=== PATIENT | female | born 1970 | race Caucasian/White ===

== ENCOUNTER 2024-01-06 05:39 | Day surgery (SDC) | payer SELFPAY ==
--- OUTSIDE RECORDS SUMMARY | 2024-01-06 05:49 | XMS RPT_ITS | CCD ---
Author Name Unknown Address [address] [place] [address] Organization [facility] Care Team Providers Care Shrimp Trawler Captain Name Role Phone Alberto Pedersen Unavailable [phone] Adam, Linda S. P. Unavailable Unavailable Unavailable Unavailable Alberto Pedersen Unavailable Unavailable Alberto Pedersen Unavailable Unavailable Alberto Pedersen Primary Care Provider [phone] Adam, Linda S. P. Unavailable BRIGIDA CHAN Attending Unavailable Gerry Meza Referring Unavailable SpringAna M Primary Care Provider [phone] SpringAna M Primary Care Provider [phone] Adam, Linda S. P. Unavailable Spring, Ana M Ramey Primary Care Provider [phone] Alberto Pedersen Unavailable Spring, Ana M Ramey Primary Care Provider [phone] Cheyenne Ahuja Primary Care Provider [phone] Adam BRONSON, Linda S. P. Unavailable Spring Ana M LIN Primary Care Provider Spring Ana M LIN Primary Care Provider Spring Ana M LIN Unavailable Spring Ana M LIN Unavailable Spring Ana M LIN Unavailable JACKSON DAVIS Attending Unavaila ble JACKSON DAVIS Referring Unavaila ble HENRICO, ANA M M. Primary Care Unavailable Spring FLANGER, Ana M Ramey Primary Care Provider Spring FLANGER, Ana M M. Unavailable SPRING, ANA M M. Primary Care Unavailable PARAG COMBS Attending Unava ilable HENRICO, ANA M MNatalie Primary Care Unavailable PARAG COMSB Attending Unava ilable HENRICO, ANA M MNatalie Primary Care Unavailable RAYMOND BARCLAY Attending Unavailable Kvng Gonzalez MD Unavailable [phone] Unavailable Primary Care Provider Unavailabl e Spring FLANGER, [facility] Primary Care Provider Unav ailable System, Provider Not In Primary Care Provider Un available Spring FLANGER, [facility] Primary Care Provider Unav ailable GHAZOUL, ANGLE Attending Unavailable GHAZOUL, ANGLE Referring Unavailable GHAZOUL, ANGLE Admitting Unavailable SELF, SELF Referring Unavailable HENRICO, [facility] Primary Care Unavailable GHAZOUL, ANGLE Attending Unavailable SPRING, [facility] Primary Care Unavailable GHAZOUL, ANGLE Attending Unavailable GHAZOUL, ANGLE Referring Unavailable SELF, SELF Referring Unavailable GHAZOUL, ANGLE Attending Unavailable SELF, SELF Referring Unavailable GHAZOUL, ANGLE Attending Unavailable GHAZOUL, ANGLE Attending Unavailable HENRICO, [facility] Primary Care Unavailable SELF, SELF Referring Unavailable HENRICO, [facility] Primary Care Unavailable GHAZOUL, ANGLE Attending Unavailable SELF, SELF Referring Unavailable SELF, SELF Referring Unavailable HENRICO, [facility] Primary Care Unavailable GHAZOUL, ANGLE Attending Unavailable SELF, SELF Referring Unavailable HENR[place], [facility] Primary Care Unavailable GHAZOUL, ANGLE Attending Unavailable No, Physician Primary Care Provider Unavailabl e Bhavesh Faust MD Primary Care Pro vider Bhavesh Faust Unavailable Govind, Dr. Bhavesh Vazquez Referring Unavailable Thomae, Tee R Attending Unavailable Govind, Dr. Bhavesh Vazquez Attending Unavailable Thomae, Tee R Attending Unavailable Thomae, Tee R Referring Unavailable Govind, Dr. Bhavesh Vazquez Attending Unavailable KVNG GONZALEZ Referring Unavailable GOVIND, BHAVESH BRIANNA MOUNIR Primary Care Shona vailable Govind Bhavesh BRONSON Primary Care Provider GOVIND, BHAVESH BRIANNA MOUNIR Primary Care Shona vailable KVNG GONZALEZ Attending Unavailable KVNG GONZALEZ Attending Unavailable GOVIND, BHAVESH BRIANNA MOUNIR Primary Care Shona vailable KVNG GONZALEZ Referring Unavailable GOVIND, BHAVESH BRIANNA MOUNIR Primary Care Shona vailable GOVIND, BHAVESH BRIANNA MOUNIR Primary Care Shona vailable GOVIND, BHAVESH BRIANNA MOUNIR Referring Shona vailable SHERI ANDRE Attending Unavailable GOVIND, BHAVESH BRIANNA MOUNIR Primary Care Shona vailable GOVIND, BHAVESH BRIANNA MOUNIR Attending Shona vailable GOVIND, BHAVESH BRIANNA MOUNIR Primary Care Shona vailable SALSGIVER, SLOANE Attending Unavailable GOVIND, BHAVESH BRIANNA MOUNIR Primary Care Shona vailable GOVIND, BHAVESH BRIANNA MOUNIR Primary Care Shona vailable SALSGIVER, SLOANE Attending Unavailable KVNG GONZALEZ Attending Unavailable GOVIND, BHAVESH BRIANNA MOUNIR Primary Care Shona vailable KVNG GONZALEZ Attending Unavailable GOVIND, BHAVESH BRIANNA MOUNIR Primary Care Shona vailable KVNG GONZALEZ Attending Unavailable GOVIND, BAHVESH BRIANNA MOUNIR Primary Care Shona vailable KVNG GONZALEZ Attending Unavailable GOVIND, BHAVESH BRIANNA MOUNIR Primary Care Shona vailable RAIMUNDO FERGUSON Attending Unavail able GOVIND, BHAVESH BRIANNA MOUNIR Primary Care Shona vailable GOVIND, BHAVESH BRIANNA MOUNIR Attending Shona vailable GOVIND, BHAVESH BRIANNA MOUNIR Primary Care Shona vailable KVNG GONZALEZ Attending Unavailable GOVIND, BHAVESH BRIANNA MOUNIR Primary Care Shona vailable GOVIND, BHVAESH BRIANNA MOUNIR Attending Shona vailable GOVIND, BHAVESH BRIANNA MOUNIR Primary Care Shona vailable GOVIND, BHAVESH BRIANNA MOUNIR Primary Care Shona vailable GOVIND, BHAVESH BRIANNA MOUNIR Attending Shona vailable AMERICA, FINA M Attending BHAVESH Maguire Primary Care Shona vailable Allergies Allergy Classification Reported Allergen(s) Allergy Type Date of Onset Reaction(s) Facility Cat's Claw preparation (1 source) Cat's Claw preparation Drug Allergy 6 Itching [facility] Cats (1 source) Cat Animal Allergy (Dander) 6 Itching Work Phone: Mold Extract (2 sources) Mold Extract Drug Allergy 6 Rash Work Phone: Opioid Agonists (1 source) Codeine Drug Allergy 9 Unknown [facility] Pollen (2 sources) Grass pollen Substance Allergy 6 Shortness of Breath Work Phone: (20 sources) cats claw preparation; Translations: [CAT'S CLAW (UNCARIA TOMENTOSA)] Propensity to adverse reactions to drug 6 Itching [facility] Work Phone: (20 sources) Grass pollen; Translations: [GRASS POLLEN] Propensity to adverse reactions to drug 6 [facility] Work Phone: (20 sources) mold extract; Translations: [MOLD] Propensity to adverse reactions to drug 6 Rash [facility] Work Phone: (20 sources) Codeine; Translations: [CODEINE PHOSPHATE] Drug Allergy 9 Unknown [facility] (8 sources) Codeine Drug Allergy 9 [facility] (8 sources) Cat Dander Propensity to adverse reactions to drug 6 Itching [facility] (6 sources) *Seasonal Propensity to adverse reactions to substance 6 Dyspnea [facility] Medications Current Medications Medication Drug Class(es) Dates Sig (Normalized) Sig (Original) acetaminophen 325 mg / oxyCODONE hydrochloride 5 mg oral tablet (6 sources) Opioid Agonist Start: 07-27-2022 End: 07-30-2022 take 1 tablet by mouth every six hours as needed for pain oxyCODONE-acetaminop hen 5-325 MG per tablet Indications: S/P abdominoplasty Take 1 tablet by mouth every 6 hours as needed for Moderate Pain (Use ONLY as needed for pain) for up to 3 days. 10 tablet 0 07/27/2022 Active alogliptin 25 mg oral tablet (10 sources) Start: 06-09-2023 End: 07-09-2023 take 0.5 tablet by mouth once daily before lunch alogliptin 25 mg Tab Take 0.5 (one-half) tablet (12.5 mg total) by mouth daily before lunch . 15 tablet 1 06/09/2023 07/09/2023 Active Completed/Discontinued Medications Medication Drug Class(es) Dates Sig (Normalized) Sig (Original) acetaminophen 325 mg / HYDROcodone bitartrate 5 mg oral tablet (1 source) Opioid Agonist Start: 12-19-2020 End: 12-19-2020 take 1-2 tablets by mouth every four hours as needed 1-2 tablet, Oral, Every 4 hours PRN, moderate to severe pain, Starting 12/19/20 at 1219 For patient reported pain 4/10 or less, give 1 tablet; 5 and above/10, give 2 tablets [id number] actuat albuterol 0.09 mg/actuat metered dose inhaler (2 sources) beta2-Adrenergic Agonist Start: 10-01-2021 End: 04-27-2022 albuterol 108 (90 Base) MCG/ACT Aero Soln inhaler 1-2 inhalations every 4-6 hours as needed for wheezing. Dispense spacer as needed. 0 10/01/2021 04/27/2022 Discontinued Problems Active Problems Problem Classification Problem Date Documented Da te Episodic/Chronic Anxiety disorders (20 sources) Anxiety; Translations: [Anxiety disorder, unspecified] Onset: 05-21-2019 05-21-2019 Chronic Asthma (20 sources) Asthma; Translations: [Unspecified asthma, uncomplicated] Onset: 07-13-2016 07-13-2016 Chronic Coma; stupor; and brain damage (2 sources) Daytime somnolence; Translations: [Somnolence] Episodic Complications of surgical procedures or medical care (2 sources) Post-surgical malabsorption; Translations: [Postsurgical malabsorption, not elsewhere classified] Chronic Crushing injury or internal injury (1 source) Contusion of lung; Translations: [Contusion of right lung, initial encounter] Episodic Deficiency and other anemia (5 sources) Iron deficiency anemia; Translations: [Iron deficiency anemia, unspecified] Episodic Digestive congenital anomalies (2 sources) Other specified congenital malformations of intestine; 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] Onset: 03-11-2023 03-18-2023 Chronic Disorders of lipid metabolism (18 sources) Hyperlipidemia; Translations: [Dyslipidemia] Onset: 06-21-2023 Chronic Essential hypertension (20 sources) Hypertensive disorder; Translations: [Essential hypertension] Onset: 11-21-2017 11-21-2017 Chronic Joint disorders and dislocations; trauma-related (1 source) Chondromalacia of right patella; Translations: [Chondromalacia, patella, right] Menopausal disorders (20 sources) Menopausal syndrome; Translations: [Menopausal and female climacteric states] Onset: 11-23-2019 12-26-2020 Chronic Miscellaneous mental health disorders (19 sources) Eating disorder; Translations: [Eating disorder, unspecified] Onset: 07-19-2023 Chronic Mood disorders (20 sources) Depressive disorder; Translations: [Depressive disorder] Onset: 11-19-2019 04-27-2022 Chronic Nutritional deficiencies (20 sources) Vitamin D deficiency; Translations: [Iron deficiency] Onset: 06-14-2016 06-14-2016 Chronic Nutritional deficiencies (20 sources) Iron deficiency; Translations: [Iron deficiency] Onset: 06-14-2016 06-14-2016 Episodic Osteoarthritis (20 sources) Unilateral primary osteoarthritis of first carpometacarpal joint, left hand; Translations: [Unilateral primary osteoarthritis of first carpometacarpal joint, right hand] Onset: 05-19-2018 05-19-2018 Chronic Osteoarthritis (17 sources) Osteoarthritis of first carpometacarpal joint of right hand; Translations: [Osteoarthritis of carpometacarpal (CMC) joint of right thumb] Onset: 05-19-2018 05-19-2018 Other connective tissue disease (17 sources) Pain in left thumb; Translations: [Pain of left thumb] Onset: 07-22-2016 07-22-2016 Other connective tissue disease (2 sources) Bursitis of right hip; Translations: [Bursitis of hip, right] Onset: 03-17-2017 03-17-2017 Other gastrointestinal disorders (20 sources) Malabsorption - iron; Translations: [Intestinal malabsorption, unspecified] Onset: 02-03-2022 Chronic Other gastrointestinal disorders (3 sources) Intestinal malabsorption; Translations: [Intestinal malabsorption, unspecified] Chronic Other gastrointestinal disorders (4 sources) Intestinal malabsorption, unspecified; Translations: [Intestinal malabsorption, unspecified] Onset: 02-03-2022 Chronic Other gastrointestinal disorders (5 sources) Constipation; Translations: [Constipation, unspecified] Episodic Other gastrointestinal disorders (4 sources) Bariatric surgery status; Translations: [Bariatric surgery status] Onset: 06-14-2016 Episodic Other lower respiratory disease (2 sources) Snoring; Translations: [Snoring] Episodic Other non-traumatic joint disorders (20 sources) Arthritis; Translations: [Unspecified osteoarthritis, unspecified site] Onset: 07-13-2016 07-13-2016 Chronic Other non-traumatic joint disorders (1 source) Hip pain; Translations: [Arthralgia of hip, unspecified laterality] Episodic Other nutritional; endocrine; and metabolic disorders (6 sources) Body mass index 25-29 - overweight; Translations: [Iron deficiency] Onset: 06-14-2016 11-21-2017 Chronic Other nutritional; endocrine; and metabolic disorders (7 sources) Obesity, unspecified; Translations: [Obese class I] Onset: 11-21-2017 12-12-2018 Chronic Other nutritional; endocrine; and metabolic disorders (10 sources) Morbid obesity; Translations: [Morbid (severe) obesity due to excess calories] Onset: 02-01-2007 Chronic Other nutritional; endocrine; and metabolic disorders (12 sources) Insulin resistance; Translations: [Metabolic syndrome] Chronic Other nutritional; endocrine; and metabolic disorders (12 sources) Localized adiposity; Translations: [Localized adiposity] Onset: 04-27-2022 Chronic Other nutritional; endocrine; and metabolic disorders (1 source) Localized adiposity; Translations: [Localized adiposity] Onset: 04-27-2022 Chronic Other nutritional; endocrine; and metabolic disorders (4 sources) Metabolic syndrome; Translations: [Metabolic syndrome and other insulin resistance] Onset: 06-09-2023 Chronic Other nutritional; endocrine; and metabolic disorders (19 sources) Body mass index 25-29 - overweight; Translations: [Body mass index (BMI) 29.0-29.9, adult] Episodic Other nutritional; endocrine; and metabolic disorders (1 source) Weight gain; Translations: [Abnormal weight gain] Episodic Other nutritional; endocrine; and metabolic disorders (2 sources) Overweight; Translations: [Overweight] Onset: 12-13-2023 Episodic Other nutritional; endocrine; and metabolic disorders (2 sources) Body mass index (BMI) 27.0-27.9, adult; Translations: [Body mass index (BMI) 27.0-27.9, adult] Onset: 12-13-2023 Episodic Other nutritional; endocrine; and metabolic disorders (17 sources) Obese class I; Translations: [Obesity, Class I, BMI 30-34.9] Onset: 11-21-2017 12-12-2018 Other skin disorders (2 sources) Atrophic disorder of skin, unspecified; Translations: [Atrophic disorder of skin, unspecified] Onset: 08-13-2022 Episodic Residual codes; unclassified (1 source) Sleep apnea; Translations: [Sleep apnea, unspecified] Onset: 02-01-2007 02-01-2007 Chronic Residual codes; unclassified (1 source) Obstructive sleep apnea syndrome; Translations: [Obstructive sleep apnea (adult) (pediatric)] Chronic Residual codes; unclassified (1 source) Sleep disorder; Translations: [Sleep disorder, unspecified] Episodic Residual codes; unclassified (4 sources) Body mass index 20-24 - normal; Translations: [Body mass index (BMI) 24.0-24.9, adult] Episodic Residual codes; unclassified (2 sources) Other specified postprocedural states; Translations: [Other specified postprocedural states] Onset: 09-14-2022 Episodic Sprains and strains (1 source) Sprain of knee; Translations: [Sprain of other ligament of right knee, initial encounter] Episodic Thyroid disorders (20 sources) Acquired hypothyroidism; 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] Onset: 02-01-2007 06-14-2016 Chronic Thyroid disorders (2 sources) Disorder of thyroid, unspecified; Translations: [Disorder of thyroid gland] Onset: 03-11-2023 03-18-2023 Episodic Unclassified (18 sources) Arthritis of carpometacarpal (CMC) joint of left thumb; Translations: [Arthritis of carpometacarpal (CMC) joint of left thumb] Onset: 05-19-2018 05-19-2018 Unclassified (19 sources) Patient encounter status; Translations: [Preoperative evaluation to rule out surgical contraindication] Onset: 05-21-2019 05-21-2019 Unclassified (2 sources) Post Op Visit; Translations: [Post Op Visit] Onset: 09-01-2022 Unclassified (2 sources) New Patient; Translations: [New Patient] Onset: 04-27-2022 Unclassified (2 sources) Insulin resistance, unspecified; Translations: [Insulin resistance, unspecified] Onset: 12-13-2023 Unclassified (2 sources) 12/01/23 PRE-OP CLEARANCE FORM Onset: 12-01-2023 Past or Other Problems Problem Classification Problem Date Documented Da te Episodic/Chronic Abdominal pain (9 sources) Abdominal pain; Translations: [Unspecified abdominal pain] Onset: 03-19-2008 03-19-2008 Episodic Deficiency and other anemia (20 sources) Anemia; Translations: [Anemia, unspecified] Onset: 12-16-2016 12-16-2016 Episodic Immunizations and screening for infectious disease (2 sources) Encounter for immunization; Translations: [Encounter for immunization] Onset: 04-15-2023 Episodic Nonmalignant breast conditions (7 sources) Breast lump; Translations: [Unspecified lump in unspecified breast] Onset: 01-24-2023 02-03-2023 Episodic Open wounds of extremities (20 sources) Open wound of finger with tendon injury; Translations: [Laceration of tendon of finger] Onset: 12-17-2020 12-17-2020 Episodic Other connective tissue disease (20 sources) Pain in left finger(s); Translations: [Other bursitis of hip, right hip] Onset: 07-22-2016 07-22-2016 Episodic Other connective tissue disease (18 sources) Other bursitis of hip, right hip; Translations: [Bursitis of hip, right] Onset: 03-17-2017 03-17-2017 Episodic Other connective tissue disease (9 sources) Pain in left lower limb; Translations: [Pain in left leg] Onset: 04-30-2016 04-30-2016 Episodic Other connective tissue disease (20 sources) Bursitis of right hip; Translations: [Other bursitis of hip, right hip] Onset: 03-17-2017 03-17-2017 Episodic Other connective tissue disease (2 sources) Lateral epicondylitis, right elbow; Translations: [Lateral epicondylitis, right elbow] Onset: 05-13-2023 Episodic Other endocrine disorders (8 sources) Disorder of endocrine system; Translations: [Endocrine disorder, unspecified] Onset: 11-23-2019 04-27-2022 Episodic Other gastrointestinal disorders (2 sources) Constipation, unspecified; Translations: [Constipation, unspecified] Onset: 07-19-2023 Episodic Other hematologic conditions (20 sources) H/O: anemia; Translations: [Personal history of diseases of the blood and blood-forming organs and certain disorders involving the immune mechanism] Onset: 11-23-2019 12-26-2020 Episodic Other lower respiratory disease (20 sources) Cough; Translations: [Cough] Onset: 07-19-2019 07-19-2019 Episodic Other lower respiratory disease (9 sources) Disorder of lung; Translations: [Other disorders of lung] Onset: 02-01-2007 02-01-2007 Episodic Other nutritional; endocrine; and metabolic disorders (20 sources) Overweight in adulthood with body mass index of 25 or more but less than 30; Translations: [Overweight] Onset: 11-21-2017 Episodic Other nutritional; endocrine; and metabolic disorders (2 sources) Body mass index (BMI) 26.0-26.9, adult; Translations: [Body mass index (BMI) 26.0-26.9, adult] Onset: 06-09-2023 Episodic Other screening for suspected conditions (not mental disorders or infectious disease) (20 sources) Patient encounter status; Translations: [Encounter for other screening for malignant neoplasm of breast] Onset: 01-24-2023 01-17-2023 Episodic Other skin disorders (11 sources) Atrophic condition of skin; Translations: [Atrophic disorder of skin, unspecified] Onset: 04-27-2022 Episodic Other upper respiratory infections (20 sources) Frontal sinusitis; Translations: [Chronic frontal sinusitis] Onset: 07-19-2019 Resolved: 01-17-2023 05-20-2020 Chronic Other upper respiratory infections (16 sources) Acute frontal sinusitis; Translations: [Frontal sinusitis] Onset: 07-19-2019 05-20-2020 Episodic Residual codes; unclassified (18 sources) Insomnia; Translations: [Insomnia, unspecified] Onset: 01-18-2023 01-17-2023 Episodic Residual codes; unclassified (2 sources) Insomnia, unspecified; Translations: [Insomnia, unspecified] Onset: 01-19-2023 Episodic Residual codes; unclassified (2 sources) Body mass index (BMI) 24.0-24.9, adult; Translations: [Body mass index (BMI) 24.0-24.9, adult] Onset: 03-10-2023 Episodic Spondylosis; intervertebral disc disorders; other back problems (20 sources) Low back pain; Translations: [Sciatica] Onset: 07-13-2016 07-13-2016 Episodic Unclassified (20 sources) History of bariatric surgical procedure; Translations: [H/O: surgery] Onset: 06-14-2016 06-14-2016 Episodic Unclassified (20 sources) Preprocedural examination done; Translations: [Pre-op exam] Onset: 08-22-2018 Resolved: 03-15-2019 08-22-2018 Unclassified (2 sources) Insulin resistance, unspecified; Translations: [Insulin resistance, unspecified] Onset: 12-13-2023 Urinary tract infections (20 sources) Cystitis; Translations: [Urinary tract infectious disease] Onset: 12-12-2018 Resolved: 03-15-2019 12-12-2018 Episodic Viral infection (20 sources) Disease caused by 2019-nCoV; Translations: [COVID-19] Onset: 06-23-2021 Episodic Results Test Name Value Interpretation Reference Range Facil ity Vital Signs Date Time Vital Sign Value Performing Clinician Faci lity 12-16-2023 07:47-0500 Body height 180.3 cm Bhavesh Faust MD Work Phone: [facility] 12-16-2023 07:47-0500 Body mass index (BMI) [Ratio] 27.2 kg/m2 Bhavesh Faust MD Work Phone: [facility] 12-16-2023 07:47-0500 Body temperature 98.01 [degF] Bhavesh Faust MD Work Phone: [facility] 12-16-2023 07:47-0500 Body weight 88.45 kg Bhavesh Faust MD Work Phone: [facility] 12-16-2023 07:47-0500 Diastolic blood pressure 85 mm[Hg] Bhavesh Faust MD Work Phone: [facility] 12-16-2023 07:47-0500 Heart rate 87 /min Bhavesh Faust MD Work Phone: [facility] 12-16-2023 07:47-0500 Respiratory rate 16 /min Bhavesh Faust MD Work Phone: [facility] 12-16-2023 07:47-0500 SaO2% (BldA) [Mass fraction] 96 % Bhavesh Faust MD Work Phone: [facility] 12-16-2023 07:47-0500 Systolic blood pressure 117 mm[Hg] Bhavesh Faust MD Work Phone: [facility] 12-13-2023 10:03-0500 Body height 180.3 cm Kvng Gonzalez MD Work Phone: [facility] 12-13-2023 10:03-0500 Body mass index (BMI) [Ratio] 27.36 kg/m2 Kvng Gonzalez MD Work Phone: [facility] 12-13-2023 10:03-0500 Body weight 89 kg Kvng Gonzalez MD Work Phone: [facility] 12-13-2023 10:03-0500 Diastolic blood pressure 85 mm[Hg] Kvng Gonzalez MD Work Phone: [facility] 12-13-2023 10:03-0500 Heart rate 64 /min Kvng Gonzalez MD Work Phone: [facility] 12-13-2023 10:03-0500 SaO2% (BldA) [Mass fraction] 98 % Kvng Gonzalez MD Work Phone: [facility] 12-13-2023 10:03-0500 Systolic blood pressure 129 mm[Hg] Kvng Gonzalez MD Work Phone: [facility] 09-27-2023 09:07-0500 Body height 180.3 cm Kvng Gonzalez MD Work Phone: [facility] 09-27-2023 09:07-0500 Body mass index (BMI) [Ratio] 27.62 kg/m2 Kvng Gonzalez MD Work Phone: [facility] 09-27-2023 09:07-0500 Body weight 89.81 kg Kvng Gonzalez MD Work Phone: [facility] Encounters Encounter Date Encounter Type Care Provider Facility Start: 12-18-2023 Orders Only Kvng Marx MD Work Phone: [facility] Procedures Date Procedure Procedure Detail Performing Clinician Start: 12-16-2023 Ecg routine ecg w/least 12 lds w/i&r Bhavesh Faust MD Work Phone: Start: 04-15-2023 Microscopic observation [Identifier] in Cervix by Cyto stain Kvng Gonzalez MD Work Phone: Start: 03-11-2023 Colonoscopy stoma dx including collj spec spx Bhavesh Faust MD Work Phone: Start: 03-11-2023 End: 03-11-2023 Colonoscopy Bhavesh Faust Work Phone: Start: 01-24-2023 Mammography Bhavesh Faust MD Work Phone: Start: 04-07-2022 Assay of ferritin Kvng Gonzalez MD Work Phone: Start: 03-01-2022 Assay of free thyroxine Kvng baker MD Work Phone: Start: 11-13-2021 Referral to dietetics service Kvng Gonzalez MD Work Phone: Start: 12-26-2020 Adult depression screening assessment Ana M Spring Start: 12-19-2020 XR OR FLUOROSCOPY TIME Ananya lemus Work Phone: Start: 12-19-2020 Choriogonadotropin ( test) [Presence] in Urine Willi Sosa Work Phone: Start: 12-12-2018 Urinalysis macro (dipstick) panel - Urine Alberto Pedersen Work Phone: Start: 11-30-2018 Mammography Ana M Spring Start: 12-24-2017 End: 12-24-2017 Drain/inject, joint/bursa Alberto leo Work Phone: Start: 09-07-2017 Microscopic observation [Identifier] in Cervix by Cyto stain Alberto Pedersen Start: 06-23-2017 End: 06-23-2017 XYZ JOINT APIRATION/IJNECTION Alberto [place] Work Phone: H/O: surgery S/P abdominoplasty Angle garay MD Work Phone: H/O: surgery S/P abdominoplasty Angle garay MD Work Phone: H/O: surgery S/P abdomvashti garay MD Work Phone: H/O: surgery S/P abdominoplasty Angle garay MD Work Phone: H/O: surgery S/P abdomvashti garay MD Work Phone: H/O: surgery S/P abdominoplasty Angle garay MD Work Phone: Plan of Treatment Date Care Activity Detail Author Start: 03-11-2033 Screening for malign ant neoplasm of colon [facility] Start: 08-19-2031 Tetanus vaccination [facility] Start: 04-15-2028 Screening for malign ant neoplasm of cervix Pap Smear [facility] Start: 11-21-2027 Tetanus vaccination [facility] Start: 12-17-2024 End: 12-17-2024 Patient encounter procedure 12/17/2024 8:20 AM EST Office Visit [facility] [address] [place] [phone] Bhavesh Faust MD [address] [address] [facility] Start: 04-20-2024 End: 04-20-2024 Patient encounter procedure 04/20/2024 8:40 AM EDT Office Visit [facility] [address] [place] [phone] Bhavesh Faust MD [address] [address] [facility] Start: 04-15-2024 History and physical examination, annual for health maintenance Wellness Visit [facility] Start: 03-12-2024 End: 03-12-2024 Patient encounter procedure 03/12/2024 10:30 AM EDT Office Visit [facility] [address] [place] [id number] vKng Gonzalez MD [address] [facility] [address] [place] [address] [facility] Start: 02-10-2024 End: 02-13-2025 MG Breast - bilateral Screening Mammography Screening Daniel Bilateral Imaging Routine Encounter for screening for malignant neoplasm of breast, unspecified screening modality Expected: 02/10/2024, Expires: 02/13/2025 [facility] Work Phone: Immunizations Immunization Date Immunization Notes Care Provider Fa [facility] 12-16-2023 zoster vaccine recombinant Bhavesh Faust MD Work Phone: [facility] 12-16-2023 varicella-zoster gE, diluent + powder, (SHINGRIX KIT) 50 mcg/0.5 mL injection Bhavesh Faust MD Work Phone: [facility] 04-15-2023 Pneumococcal Conjuga te 20-Valent (Prevnar 20) Kvng Gonzalez MD Work Phone: [facility] 04-15-2023 zoster vaccine recombinant Kvng Gonzalez MD Work Phone: [facility] 08-19-2021 tetanus toxoid, redu perez diphtheria toxoid, and acellular pertussis vaccine, adsorbed Fina Becerra RN [facility] 08-12-2021 influenza, injectabl e, quadrivalent, preservative free Fina Becerra RN [facility] 08-12-2021 influenza virus vaccine, unspecified formulation Angle Pina MD Work Phone: [facility] 01-29-2021 COVID-19 vaccine, Christi Oliveros, 100 mcg/0.5 mL Angle Pina MD Work Phone: [facility] 12-31-2020 Moderna SARS-CoV-2 Vaccination Vicki Erickson [employer] [facility] 08-07-2020 influenza, injectabl e, quadrivalent, preservative free Vicki Erickson [employer] INS[employer] [facility] 08-22-2019 influenza, injectabl e, quadrivalent, preservative free Vicki Erickson [employer] INS[employer] [facility] 08-28-2009 novel [id number], preservative-free, injectable Alberto [facility] 08-07-2009 influenza virus vaccine, whole virus [facility] 09-12-2008 influenza virus vaccine, whole virus [facility] 09-07-2007 influenza virus vaccine, whole virus [facility] Payers Date Payer Category Payer Unknown xxxxxxxxxxxx 2. [id number] 2011 Unknown [id number] 2. [id number] 2011 Unknown [id number] 1. [id number] 2011 Unknown [id number]. 1.13.385.2.7.3.523740.315 1970 Unknown [id number] 2.16. 840.1.672360.3.579.2.356 1970 Unknown [id number] 2.16. 840.1.115127.3.579.2.356 1970 Unknown [id number] 2.16. 840.1.153161.3.579.2.356 1970 Unknown [id number] 2.16. 840.1.825825.3.579.2. 1970 Unknown [id number] 2.16. 840.1.468018.3.579.2. 1970 Unknown [id number] 2.16. 840.1.592270.3.579.2. 1970 Unknown [id number] 2.16. 840.1.688953.3.579.2. 1970 Unknown [id number] 2.16. 840.1.363285.3.579.2. 1970 Unknown [id number] 2.16. 840.1.149593.3.579.2. 1970 Unknown [id number] 2.16. 840.1.147654.3.579.2. 1970 Unknown [id number] 2.16. 840.1.550025.3.579.2. 1970 Unknown [id number] 2.16. 840.1.283888.3.579.2. 1970 Unknown [id number] 2.16. 840.1.959983.3.579.2. 1970 Unknown [id number] 2.16.8 40.1.522764.3.579.2. 1970 Unknown [id number] 2.16.8 40.1.929584.3.579.2. 1970 Unknown [id number] 2.16.8 40.1.495272.3.579.2.1068 1970 Unknown [id number] 2.16.8 40.1.778742.3.579.2.1068 1970 Unknown [id number] 2.16.8 40.1.425716.3.579.2.1068 1970 Unknown [id number] 2.16.8 40.1.193869.3.579.2.10681970 Unknown [id number] 2.16. 840.1.853225.3.579.2. 1970 Unknown [id number] 2.16. 840.1.165149.3.579.2 1970 Unknown [id number] 2.16. 840.1.023639.3.579.2. 1970 Unknown [id number] 2.16. 840.1.021352.3.579.2 1970 Unknown [id number] 2.16. 840.1.196441.3.579.2 1970 Unknown [id number] 2.16. 840.1.191360.3.579.2 1970 Unknown [id number] 2.16. 840.1.760548.3.579.2 1970 Unknown [id number] 2.16. 840.1.750265.3.579.2 1970 Unknown [id number] 2.16. 840.1.844398.3.579.2 1970 Unknown [id number] 2.16. 840.1.336161.3.579.2 1970 Unknown [id number] 2.16. 840.1.574560.3.579.2 1970 Unknown [id number] 2.16. 840.1.324288.3.579.2 1970 Unknown [id number] 2.16. 840.1.808932.3.579.2 1970 Unknown [id number] 2.16. 840.1.396675.3.579.2 1970 Unknown [id number] 2.16. 840.1.185923.3.579.2 1970 Unknown [id number] 2.16. 840.1.556982.3.579.2.903 1970 Unknown [id number] 2.16. 840.1.263155.3.579.2.903 1970 Unknown [id number] 2.16. 840.1.087178.3.579.2.903 1970 Unknown [id number] 2.16. 840.1.277061.3.579.2.903 Social History Date Type Detail Facility Start: 02-22-2018 End: 01-17-2023 Tobacco smoking status NHIS Never smoker [facility] Start: 1970 Sex Assigned At Not on file [facility] Work Phone: Start: 06-14-2016 Alcohol Comment beer/ once a month [facility] Start: 05-21-2019 End: 01-30-2021 History SDOH Social Connections Get Together 3 [facility] Start: 05-21-2019 End: 01-30-2021 History SDOH Food Worry 1 [facility] Start: 05-26-2020 End: 12-16-2023 Alcohol intake Current drinker of alcohol (finding) [facility] Start: 12-20-2021 End: 04-13-2022 Exposure to SARS-CoV-2 (event) Unable to assess [facility] Start: 05-26-2020 End: 01-17-2023 Tobacco use and exposure Never used [facility] Start: 11-02-2021 End: 03-07-2023 Exposure to SARS-CoV-2 (event) Not sure [facility] Start: 04-10-2007 Alcohol intake Not Asked Start: 12-23-2021 End: 01-17-2023 Tobacco Comment 12-23-2021 [facility] Start: 01-30-2021 End: 12-23-2021 Cigarette pack-years [facility] Start: 12-26-2020 End: 01-30-2021 Social connection and isolation panel [facility] Frequency of Communication with Friends and Family Not on file [facility] (I/We) worried whetenisha er (my/our) food would run out before (I/we) got money to buy more. Never true [facility] Start: 03-15-2019 Gender identity Identifies as female gender (finding) [facility] Start: 03-15-2019 Sexual orientation Heterosexual (finding) [facility] Tobacco smoking stat [facility] Work Phone[facility] Medical Equipment Procedure Code Equipment Code Equipment Origin al Text Equipment Identifier Dates Wire 1.1 X 130mm [employer] - [id number] Start: 12-19-2020 Dx vitamin b12 d ef injecting every 30 days . [id number] Start: 12-18-2023 Goals Date Patient Goal Desired Activity /State Personal health goal Clinical Notes 01-30-2008 to 12-16-2023 Assessment & Plan Note - Bhavesh Faust MD - 12/16/2023 8:54 AM ESTAssessment & Plan Note - Bhavesh Faust MD - 12/16/2023 8:54 AM ESTPatient Instructions Note Date & Type Note Facility 12-16-2023 Evaluation + Plan note Associated Problem(s): Mild major depression (HCC) Managed without medications, off Prozac with no concerns. [facility] 12-16-2023 Evaluation + Plan note Associated Problem(s): Preop cardiovascular exam The patient's risk of Major Adverse Cardiac Events (MACE) perioperatively is low based on RCRI and AHA/ACC 2014 guidelines. Cardiac risk factors are optimized. No further cardiac testing is indicated. EKG reviewed , no concerns , NSR. Dietary supplements -hold for one week prior to surgery NSAIDs: -hold one week prior to surgery [facility] 12-16-2023 Miscellaneous Notes Associate d Problem(s): Mild major depression (HCC) Managed without medications, off Prozac with no concerns. Associated Problem(s): Preop cardiovascular exam The patient's risk of Major Adverse Cardiac Events (MACE) perioperatively is low based on RCRI and AHA/ACC 2014 guidelines. Cardiac risk factors are optimized. No further cardiac testing is indicated. EKG reviewed , no concerns , NSR. Dietary supplements -hold for one week prior to surgery NSAIDs: -hold one week prior to surgery Associated Problem(s): Vitamin D deficiency Might need further supplementation, managed with Dr. Gonzalez Associated Problem(s): Healthcare maintenance Pap: done and repeat in 2027 Herpes zoster: completed today Pneumococcal 13 and 23: up to date COVID vaccine: Completed 3 doses Tdap: No indication Exercise: Regular Hep C: Low risk HIV: Low risk Hep B: No indication Mammogram: Done in January 2022 and normal, had a breast nodule that was confirmed with no malignancy with ultrasound. Lipid profile assessment: Used to be on Lipitor, stopped taking it and since last check was normal in 2020, due for repeat. Colon Cancer Screening: Colonoscopy done this year 2022 came back normal, repeat in 2032. Associated Problem(s): Overweight with body mass index (BMI) of 29 to 29.9 in adult Following up with obesity management with Dr. Gonzalez on Contrave. documented in this encounter [facility] 12-16-2023 Evaluation + Plan note Associated Problem(s): Vitamin D deficiency Might need further supplementation, managed with Dr. Gonzalez [facility] 12-16-2023 Evaluation + Plan note Associated Problem(s): Healthcare maintenance Pap: done and repeat in 2027 Herpes zoster: completed today Pneumococcal 13 and 23: up to date COVID vaccine: Completed 3 doses Tdap: No indication Exercise: Regular Hep C: Low risk HIV: Low risk Hep B: No indication Mammogram: Done in January 2022 and normal, had a breast nodule that was confirmed with no malignancy with ultrasound. Lipid profile assessment: Used to be on Lipitor, stopped taking it and since last check was normal in 2020, due for repeat. Colon Cancer Screening: Colonoscopy done this year 2022 came back normal, repeat in 2032. [facility] 12-16-2023 Evaluation + Plan note Associated Problem(s): Overweight with body mass index (BMI) of 29 to 29.9 in adult Following up with obesity management [facility] Dr[facility] 12-16-2023 History of Presen t illness Narrative Chief Complaint Patient presents with Follow-up Pre-op-just need EKG for procedure. HPI: Reema Ventura is a 53 y.o. female presenting today for preop eval. Former patient of [facility]. PMH of depression, HTN, hypothyroidism, and insomnia. Preop for bilateral lower blepharoplasty on 01/06/24 at [facility]. Idalmis-operative Risk Evaluation (Based on 2014 AHA/ACC Guidelines): Definition of Urgency for Non-cardiac Surgery: Elective: can be delayed up to 1 year. Procedures: Low risk: - plastic. Revised Zacarias cardiac risk index (RCRI): High-risk type of surgery Yes / No (includes any intraperitoneal, intrathoracic, or suprainguinal vascular procedures) History of ischemic heart disease Yes / No (history of KS or a positive exercise test, current complaint of chest pain considered to be secondary to myocardial ischemia, use of nitrate therapy, or ECG with pathological Q waves; do not count prior coronary revascularization procedure unless one of the other criteria for ischemic heart disease is present) History of chronic heart failure Yes / No History of cerebrovascular disease Yes / No Diabetes mellitus requiring treatment with insulin Yes / No Chronic Kidney Disease with preoperative serum creatinine >2.0 mg/dL (177 mol/L) Yes / No Risk of Major Adverse Cardiac Event (MACE - KS, Cardiac arrest or ) RCRI < 2 = MACE <1%, low risk Physical Performance: Minimal Metabolic Equivalent of Task (MET) level at 4: Yes METS In-door activities Out-door activities 2.5- 3.9: Cooking, Light housekeeping, Walking down stair , Walking at job , Patient care, nursing, Mobbing and vacuuming, Packing box for moving 3mph walk (1 mile/ 20 min), Driving tractor / truck, Car washing or window, Walking dog , Shopping , Moderately vigorous, playing with children, Picking fruits or vegetables , Pushing stroller with child 4: Painting, Walking down stair or standing carrying up to 25lb, Paper hanging , Climbing stairs, Dancing (moderately fast) Gardening , Walking 4 blocks , Walking at brisk speed (1 mil/ 17-18min), Bicycling < 10 mil/hr (leisurely) , Golf carrying clubs , Swimming slowly 7: Walking down stair or standing carrying 75-99lb, Dancing (vigorous) Hiking, kayaking, rowing, and canoeing, Double tennis 10: Single tennis , Bicycling 10 to 16 mph , Swimming laps moderately fast to fast, Running 6 mph (10-minute mile) METS Performance Status = 10 Excellent Depression: Chronic for years , celexa 15 yrs then switched to prozac with weight gain. Has tried wellbutrin has not worked for her. Stopped taking Prozac for the past 3 months and has been feeling great off of it. HTN: IVETTE ruled out especially after she lost the weight. Currently diet controlled. Hypothyroidism: Chronic roland , stable at 112 mcg of levothyroxine Adjusting dose with Carlos Floyd Insomnia: Chronic on melatonin 3 mg , done 6 mg but would sleep well for 2 hours and will wake up on her own. Currently on trazodone and doing well on it. Asthma: Mild intermittent , chronic , seldom when she has to use the inhalers mainly around the allergy season Obesity: 298 lost 125 lb with gastric bypass 2006 and then started oct 2021 with medication management on wegovy worked well but trying to get it at the old as they stopped covering it with . now Health Maintenance: Pap: done and repeat in 2027 Herpes zoster: completed today Pneumococcal 13 and 23: up to date COVID vaccine: Completed 3 doses Tdap: No indication Exercise: Regular Hep C: Low risk HIV: Low risk Hep B: No indication Mammogram: Done in January 2022 and normal, had a breast nodule that was confirmed with no malignancy with ultrasound. Lipid profile assessment: Used to be on Lipitor, stopped taking it and since last check was normal in 2020, due for repeat. Colon Cancer Screening: Colonoscopy done this year 2022 came back normal, repeat in 2032. Past Medical History: Diagnosis Date Arthritis Asthma Depression Disease of thyroid gland Lumbar back pain Past Surgical History: Procedure Laterality Date ANKLE SURGERY Left 09/04/2018 Left Ankle OS Trigonum excision-Dr Meza ANKLE SURGERY Left 06/18/2019 /ZOROASTRIANISM - CT COLONOSCOPY 03/11/2023 CT COLONOSCOPY GASTRIC BYPASS 2007 TENDON REPAIR HAND/FINGER Left 12/19/2020 Procedure: Left index finger extensor tendon repair percutaneous pinning; Surgeon: Ananya Madrigal MD; Location: Main OR; Service: Orthopedic TONSILLECTOMY TUBAL LIGATION 2000 Family History Problem Relation Age of Onset Hypertension Mother Heart disease Mother Cancer Mother breast cancer Stroke Mother Clotting disorder Mother Coronary artery disease Father Hypertension Father Diabetes Father Heart disease Father Stroke Father Clotting disorder Father Social History Tobacco Use Smoking status: Never Smokeless tobacco: Never Tobacco comments: 12-23-2021 Vaping Use Vaping Use: Never used Substance Use Topics Alcohol use: Yes Comment: beer/ once a month Drug use: No Review of Systems Vitals: 12/16/23 0747 BP: 117/85 BP Location: Right arm Patient Position: Sitting BP Cuff Size: X-large Adult Pulse: 87 Resp: 16 Temp: 98 F (36.7 C) TempSrc: Temporal SpO2: 96% Weight: 88.5 kg (195 lb) Height: 5' 11 Estimated body mass index is 27.2 kg/m as calculated from the following: Height as of this encounter: 5' 11 . Weight as of this encounter: 88.5 kg (195 lb). Physical Exam Constitutional: General: She is not in acute distress. Appearance: She is not ill-appearing. HENT: Head: Normocephalic and atraumatic. Nose: Nose normal. Mouth/Throat: Mouth: Mucous membranes are moist. Pharynx: Oropharynx is clear. No oropharyngeal exudate or posterior oropharyngeal erythema. Eyes: Extraocular Movements: Extraocular movements intact. Conjunctiva/sclera: Conjunctivae normal. Pupils: Pupils are equal, round, and reactive to light. Cardiovascular: Rate and Rhythm: Normal rate and regular rhythm. Pulses: Normal pulses. Heart sounds: Normal heart sounds. No murmur heard. No gallop. Pulmonary: Effort: Pulmonary effort is normal. Breath sounds: Normal breath sounds. No wheezing, rhonchi or rales. Chest: Chest wall: No tenderness. Abdominal: General: Abdomen is flat. Bowel sounds are normal. There is no distension. Palpations: Abdomen is soft. There is no mass. Tenderness: There is no abdominal tenderness. There is no right CVA tenderness, left CVA tenderness, guarding or rebound. Genitourinary: General: Normal vulva. Vagina: No vaginal discharge. Musculoskeletal: General: No tenderness. Normal range of motion. Cervical back: Normal range of motion and neck supple. No rigidity. No muscular tenderness. Right lower leg: No edema. Left lower leg: No edema. Lymphadenopathy: Cervical: No cervical adenopathy. Skin: General: Skin is warm. Findings: No erythema or rash. Neurological: General: No focal deficit present. Mental Status: She is alert and oriented to person, place, and time. Sensory: No sensory deficit. Motor: No weakness. Gait: Gait normal. Psychiatric: Mood and Affect: Mood normal. Behavior: Behavior normal. Thought Content: Thought content normal. Judgment: Judgment normal. OARRS/NARxCHECK Report Received and Assessed: 08/17/2021 Date controlled substance agreement signed: 08/17/2021 Date of last drug screen: 08/17/2021 Functional Assessment: No data found @Exam@ PHQ9: REGINE-7 Tobacco Counseling: Counseling given: Not Answered Tobacco comments: 12-23-2021 Patient's Medications New Prescriptions No medications on file Previous Medications CETIRIZINE (ZYRTEC) 10 MG TABLET Take 1 tablet (10 mg total) by mouth daily. FLUTICASONE PROPIONATE (FLONASE) 50 MCG/ACTUATION NASAL SPRAY 1 (one) spray by NOT APPLICABLE route daily . LEVOTHYROXINE (SYNTHROID, LEVOTHROID) 125 MCG TABLET Take 1 (one) tablet (125 mcg total) by mouth once daily . MELATONIN 3 MG TAB Take 1 (one) tablet (3 mg total) by mouth as needed . METFORMIN (GLUCOPHAGE) 500 MG TABLET Take 1 (one) tablet (500 mg total) by mouth 2 (two) times a day with meals 1 during breakfast and 1during evening meal . NALTREXONE-BUPROPION 8-90 MG TBER 2 po bid . ONDANSETRON (ZOFRAN-ODT) 4 MG DISINTEGRATING TABLET Dissolve 1 (one) tablet (4 mg total) on top of tongue every 8 (eight) hours as needed for nausea . SENNA-DOCUSATE (SENNA-S) 8.6-50 MG Take 2 (two) tablets by mouth daily . TRAZODONE (DESYREL) 50 MG TABLET Take 1 (one) tablet (50 mg total) by mouth nightly as needed . VARICELLA-ZOSTER GE, DILUENT + POWDER, (SHINGRIX KIT) 50 MCG/0.5 ML INJECTION Sign this order in conjunction with immunization order to satisfy [place] Board of Pharmacy Positive ID requirements for immunization orders . Modified Medications No medications on file Discontinued Medications FERROUS FUMARATE 324 MG (106 MG IRON) TAB Take 1 (one) tablet by mouth Daily With Food Take with vitamin c 500mg . FOLIC ACID (FOLVITE) 1 MG TABLET Take 1 (one) tablet (1 mg total) by mouth daily . Health Maintenance Due Topic Date Due HIV Screening Never done Hepatitis C Screening Never done COVID-19 Vaccine ( season) 2023 Assessment & Plan Problem List Items Addressed This Visit Other Vitamin D deficiency Might need further supplementation, managed with Dr. Gonzalez Overweight with body mass index (BMI) of 29 to 29.9 in adult Following up with obesity management with Dr. Gonzalez on Contrave. Mild major depression (HCC) Managed without medications, off Prozac with no concerns. Healthcare maintenance Pap: done and repeat in 2027 Herpes zoster: completed today Pneumococcal 13 and 23: up to date COVID vaccine: Completed 3 doses Tdap: No indication Exercise: Regular Hep C: Low risk HIV: Low risk Hep B: No indication Mammogram: Done in January 2022 and normal, had a breast nodule that was confirmed with no malignancy with ultrasound. Lipid profile assessment: Used to be on Lipitor, stopped taking it and since last check was normal in 2020, due for repeat. Colon Cancer Screening: Colonoscopy done this year 2022 came back normal, repeat in 2032. Preop cardiovascular exam - Primary The patient's risk of Major Adverse Cardiac Events (MACE) perioperatively is low based on RCRI and AHA/ACC 2014 guidelines. Cardiac risk factors are optimized. No further cardiac testing is indicated. EKG reviewed , no concerns , NSR. Dietary supplements -hold for one week prior to surgery NSAIDs: -hold one week prior to surgery Relevant Orders ECG 12 Lead (Completed) Other Visit Diagnoses Encounter for immunization Relevant Medications varicella-zoster gE, diluent + powder, (SHINGRIX KIT) 50 mcg/0.5 mL injection Other Relevant Orders Varicella-zoster vaccine (Shingrix) IM vaccine (Completed) Encounter for screening for malignant neoplasm of breast, unspecified screening modality Relevant Orders Mammography Screening Daniel Bilateral Return for CANCEL March annual and place 1 yr annual . BHAVESH FAUST MD [facility] [address] [facility] [address] [facility] [address] Dept: [phone] documented in this encounter [facility] 12-13-2023 Instructions Kvng Gonzalez MD - 12/13/2023 10:22 AM EST Start metformin at 1/2tab during breakfast and 1/2 during evening meal 120g protein per day at least 30g of protein per meal documented in this encounter [facility] 12-13-2023 History of Presen t illness Narrative Chief Complaint Patient presents with Weight Loss Obesity Patient's history of diet, exercise, sleep, stress and appetite control reviewed and confirmed with patient, please see the medical office manager's note. Meal Plan Breakfast: Spinach & Cheese Egg Bites (2) Lunch: Ground turkey taco wraps (1) carrots Dinner: Ground turkey and quinoa No of Snacks Per Day: 2 Liquid Intake What do you usually drink?: Water; Coffe What type of Alcohol do you drink?: None How many drinks per week?: 0 Physical Activity What are you currently doing - physical activity or exercise?: Oscar, walking, weight training How many times per week?: 3 How long do you exercise at each session?: 30-45 minutes Any limitations you are currently having affecting your activity or exercise?: No Appetite Levels Is your appetite well controlled at this time?: Yes Energy Levels Are your energy levels fairly good at this time?: Yes Quality of Sleep Are you sleeping well at this time?: Yes How many hours of sleep per night?: 8 Do you feel rested when you wake up in the morning?: Yes Do you have sleep apnea?: No Stress Levels What is the level of stress in your life currently? On the scale of 1 to 10, 10 being the most stressed.: 1 How is your general mood ?: OK Patient Medications Are you currently taking any medications for your weight?: Yes If yes, are you having any problems with these medications?: 1 Patient Weight Most recent weight?: 199 Patient Blood Pressure Most recent Blood Pressure?: Not sure MI'KMAQ: Pt who is a Body mass index is 27.36 kg/m . BP 129/85 Pulse 64 Ht 5' 11 (1.803 m) Wt 89 kg (196 lb 3.2 oz) LMP 05/24/2018 SpO2 98% BMI 27.36 kg/m Patient here today for recheck through the [place] [employer] [facility]. Patient admits to an increase in hunger/cravings. Energy levels are fair. Sleep is reasonable. Diet and exercise protocols are difficult to maintain due to appetite. Medications were reviewed today. Stress levels are manageable currently. For the rest of the review of systems and exam see the EMR. Impression: Problem List Items Addressed This Visit Digestive Iron malabsorption Relevant Orders Iron Study with Ferritin Endocrine Hypothyroidism (acquired) Relevant Orders T3 T4, Free TSH Other S/P bariatric surgery Relevant Orders Comprehensive Metabolic Panel Vitamin B12 Vitamin B6 Vitamin D, Total, 25-OH Folate Iron deficiency Relevant Orders CBC and Differential Iron Study with Ferritin Other Visit Diagnoses Atypical eating disorder - Primary Relevant Medications naltrexone-bupropion 8-90 mg TbER Insulin resistance Relevant Medications metFORMIN (GLUCOPHAGE) 500 MG tablet Other Relevant Orders Hemoglobin A1c Insulin, Total Dyslipidemia Overweight (BMI 25.0-29.9) BMI 27.0-27.9,adult Plan:Work on macronutrient targets in the diet regular exercise within the limits orthopedics. Continue protein to carb ratios in the dietary construct. Will continue the Contrave for central volume controls and volume. Reassess nutrient deficiencies to make sure they are in goal range. Adjust metformin dosing for the insulin resistant state. Reassess here in the office in 2 to 3 months and see how she is doing live visit body comp targeting protein and resistance training in the interim. This note was partially created using voice recognition software and is inherently subject to errors including those of syntax and sound-alike substitutions which may escape proofreading. In such instances, original meaning may be extrapolated by contextual derivation Medications reviewed with patient. The following portions of the patient's history were reviewed and updated as appropriate: allergies, current medications, past family history, past medical history, past social history, past surgical history and problem list . Review of Systems Constitutional: Positive for appetite change. Negative for activity change, fatigue and unexpected weight change. Respiratory: Negative for chest tightness, shortness of breath and wheezing. Cardiovascular: Negative for chest pain, palpitations and leg swelling. Gastrointestinal: Negative for constipation and diarrhea. Musculoskeletal: Negative for arthralgias, joint swelling and myalgias. Neurological: Negative for dizziness, light-headedness, numbness and headaches. Psychiatric/Behavioral: Negative for agitation, behavioral problems, decreased concentration, dysphoric mood and sleep disturbance. The patient is not nervous/anxious and is not hyperactive. Past Medical History: Diagnosis Date Arthritis Asthma Depression Disease of thyroid gland Lumbar back pain Social History Socioeconomic History Marital status: Tobacco Use Smoking status: Never Smokeless tobacco: Never Tobacco comments: 12-23-2021 Vaping Use Vaping Use: Never used Substance and Sexual Activity Alcohol use: Yes Comment: beer/ once a month Drug use: No Sexual activity: Not Currently Partners: Male Social History Narrative Living by herself 23 son , 21 daughter Social Determinants of Health Food Insecurity: No Food Insecurity (01/30/2021) Hunger Vital Sign Worried About Running Out of Food in the Last Year: Never true Ran Out of Food in the Last Year: Never true Social Connections: Unknown (01/30/2021) Social Connection and Isolation Panel [NHANES] Frequency of Social Gatherings with Friends and Family: Twice a week Current Outpatient Medications Medication Sig Dispense Refill cetirizine (ZyrTEC) 10 MG tablet Take 1 tablet (10 mg total) by mouth daily. 30 tablet 11 fluticasone propionate (FLONASE) 50 mcg/actuation nasal spray 1 (one) spray by NOT APPLICABLE route daily . levothyroxine (SYNTHROID, LEVOTHROID) 125 MCG tablet Take 1 (one) tablet (125 mcg total) by mouth once daily . 30 tablet 11 melatonin 3 mg Tab Take 1 (one) tablet (3 mg total) by mouth as needed . ondansetron (ZOFRAN-ODT) 4 MG disintegrating tablet Dissolve 1 (one) tablet (4 mg total) on top of tongue every 8 (eight) hours as needed for nausea . 20 tablet 5 senna-docusate (SENNA-S) 8.6-50 mg Take 2 (two) tablets by mouth daily . 60 tablet 5 traZODone (DESYREL) 50 MG tablet Take 1 (one) tablet (50 mg total) by mouth nightly as needed . 30 tablet 2 ferrous fumarate 324 mg (106 mg iron) Tab Take 1 (one) tablet by mouth Daily With Food Take with vitamin c 500mg . (Patient not taking: Reported on 07/19/2023 .) 30 tablet 1 folic acid (FOLVITE) 1 MG tablet Take 1 (one) tablet (1 mg total) by mouth daily . 30 tablet 2 metFORMIN (GLUCOPHAGE) 500 MG tablet Take 1 (one) tablet (500 mg total) by mouth 2 (two) times a day with meals 1 during breakfast and 1during evening meal . 60 tablet 11 naltrexone-bupropion 8-90 mg TbER 2 po bid . 120 tablet 2 No current facility-administered medications for this visit. BP 129/85 Pulse 64 Ht 5' 11 (1.803 m) Wt 89 kg (196 lb 3.2 oz) LMP 05/24/2018 SpO2 98% BMI 27.36 kg/m Physical Exam Vitals and nursing note reviewed. Constitutional: General: She is not in acute distress. Appearance: She is well-developed. She is not ill-appearing. Cardiovascular: Rate and Rhythm: Normal rate and regular rhythm. Heart sounds: Normal heart sounds, S1 normal and S2 normal. No S3 or S4 sounds. Pulmonary: Effort: Pulmonary effort is normal. No accessory muscle usage, respiratory distress or retractions. Breath sounds: Normal breath sounds. No wheezing, rhonchi or rales. Neurological: Mental Status: She is alert and oriented to person, place, and time. Psychiatric: Speech: Speech normal. Behavior: Behavior normal. Behavior is cooperative. Thought Content: Thought content normal. Judgment: Judgment normal. Problem List Items Addressed This Visit Digestive Iron malabsorption Relevant Orders Iron Study with Ferritin Endocrine Hypothyroidism (acquired) Relevant Orders T3 T4, Free TSH Other S/P bariatric surgery Relevant Orders Comprehensive Metabolic Panel Vitamin B12 Vitamin B6 Vitamin D, Total, 25-OH Folate Iron deficiency Relevant Orders CBC and Differential Iron Study with Ferritin Other Visit Diagnoses Atypical eating disorder - Primary Relevant Medications naltrexone-bupropion 8-90 mg TbER Insulin resistance Relevant Medications metFORMIN (GLUCOPHAGE) 500 MG tablet Other Relevant Orders Hemoglobin A1c Insulin, Total Dyslipidemia Overweight (BMI 25.0-29.9) BMI 27.0-27.9,adult Continue the currently prescribed calorie load and composition. Return in about 2 months (around 02/11/2024) for Recheck. Counseling Time: minutes more than 50% of the time face to face discussing findings and coordinating care regarding medication management and education for disease processes and treatment protocol. documented in this encounter [facility] 10-07-2023 Telephone encount er Note Last OV 05/13/23. Next OV 04/20/24. [facility] 10-07-2023 Miscellaneous Notes Formattin g of this note might be different from the original. Last OV 05/13/23. Next OV 04/20/24. documented in this encounter [facility] 09-27-2023 Instructions Kvng Gonzalez MD - 09/27/2023 10:31 AM EST [employer] documented in this encounter [facility] 09-27-2023 History of Presen t illness Narrative Chief Complaint Patient presents with Obesity Weight Loss Patient Start time: Stop time: Pt who is a Body mass index is 27.62 kg/m . Ht 5' 11 (1.803 m) Wt 89.8 kg (198 lb) Comment: per pt LMP 05/24/2018 BMI 27.62 kg/m Patient's history of diet, exercise, sleep, stress and appetite control reviewed and confirmed with patient, please see the medical office manager's note. This is a telemedicine encounter. This visit has been fully reviewed with the patient and verbal consent has been obtained. Meal Plan Breakfast: [place] 1 egg coffee Lunch: [place] chilli abd cheese Dinner: Grilled chicken , veggie No of Snacks Per Day: 3 Liquid Intake What do you usually drink?: Water; Coffe What type of Alcohol do you drink?: None How many drinks per week?: 0 Physical Activity What are you currently doing - physical activity or exercise?: Walking, some weights , How many times per week?: 2 How long do you exercise at each session?: 30-35 Any limitations you are currently having affecting your activity or exercise?: None Appetite Levels Is your appetite well controlled at this time?: No Energy Levels Are your energy levels fairly good at this time?: No Quality of Sleep Are you sleeping well at this time?: Yes How many hours of sleep per night?: 8 Do you feel rested when you wake up in the morning?: Yes Do you have sleep apnea?: No Stress Levels What is the level of stress in your life currently? On the scale of 1 to 10, 10 being the most stressed.: 4 How is your general mood ?: OK Patient Medications Are you currently taking any medications for your weight?: No Patient Weight Most recent weight?: 198 Patient Blood Pressure Most recent Blood Pressure?: 77 MI'KMAQ: Patient here today for recheck through the [place] [employer] [facility] [address]. Patient admits to an increase in hunger/cravings. Energy levels are fair. Sleep is reasonable. Diet and exercise protocols are difficult to maintain due to appetite. Medications were reviewed today. Stress levels are manageable currently. For the rest of the review of systems and exam see the EMR. ASSESSMENT: 1. Insulin resistance metFORMIN (GLUCOPHAGE-XR) 500 MG 24 hr tablet 2. Atypical eating disorder 3. S/P bariatric surgery 4. Overweight (BMI 25.0-29.9) 5. BMI 27.0-27.9,adult 6. Iron deficiency 7. Iron malabsorption Plan: Work on macronutrient targets in the diet regular exercise within the limits orthopedics. Add tirzepatide in the form of zepbound. Metformin for the insulin resistant state is an interim step. Continue nutrient supports recheck in 4-8 weeks sooner if needed. This note was partially created using voice recognition software and is inherently subject to errors including those of syntax and sound-alike substitutions which may escape proofreading. In such instances, original meaning may be extrapolated by contextual derivation Medications reviewed with patient. The following portions of the patient's history were reviewed and updated as appropriate: allergies, current medications, past family history, past medical history, past social history, past surgical history and problem list . Review of Systems Constitutional: Positive for appetite change (cravings afternoon and evening) and fatigue. Negative for activity change and unexpected weight change. Respiratory: Negative for chest tightness, shortness of breath and wheezing. Cardiovascular: Negative for chest pain, palpitations and leg swelling. Gastrointestinal: Negative for constipation and diarrhea. Musculoskeletal: Negative for arthralgias, joint swelling and myalgias. Neurological: Negative for dizziness, light-headedness, numbness and headaches. Psychiatric/Behavioral: Negative for agitation, behavioral problems, decreased concentration, dysphoric mood and sleep disturbance. The patient is not nervous/anxious and is not hyperactive. Physical Exam Vitals and nursing note reviewed. Constitutional: General: She is not in acute distress. Appearance: She is well-developed. Neurological: Mental Status: She is alert and oriented to person, place, and time. Past Medical History: Diagnosis Date Arthritis Asthma Depression Disease of thyroid gland Lumbar back pain Social History Socioeconomic History Marital status: Tobacco Use Smoking status: Never Smokeless tobacco: Never Tobacco comments: 12-23-2021 Vaping Use Vaping Use: Never used Substance and Sexual Activity Alcohol use: Yes Comment: beer/ once a month Drug use: No Sexual activity: Not Currently Partners: Male Social History Narrative Living by herself 23 son , 21 daughter Social Determinants of Health Food Insecurity: No Food Insecurity (01/30/2021) Hunger Vital Sign Worried About Running Out of Food in the Last Year: Never true Ran Out of Food in the Last Year: Never true Social Connections: Unknown (01/30/2021) Social Connection and Isolation Panel [NHANES] Frequency of Social Gatherings with Friends and Family: Twice a week Current Outpatient Medications Medication Sig Dispense Refill cetirizine (ZyrTEC) 10 MG tablet Take 1 tablet (10 mg total) by mouth daily. 30 tablet 11 ferrous fumarate 324 mg (106 mg iron) Tab Take 1 (one) tablet by mouth Daily With Food Take with vitamin c 500mg . (Patient not taking: Reported on 07/19/2023 .) 30 tablet 1 fluticasone propionate (FLONASE) 50 mcg/actuation nasal spray 1 (one) spray by NOT APPLICABLE route daily . folic acid (FOLVITE) 1 MG tablet Take 1 (one) tablet (1 mg total) by mouth daily . 30 tablet 2 levothyroxine (SYNTHROID, LEVOTHROID) 125 MCG tablet Take 1 (one) tablet (125 mcg total) by mouth once daily . 30 tablet 11 melatonin 3 mg Tab Take 1 (one) tablet (3 mg total) by mouth as needed . metFORMIN (GLUCOPHAGE-XR) 500 MG 24 hr tablet Take 1 (one) tablet (500 mg total) by mouth daily with breakfast . 30 tablet 11 ondansetron (ZOFRAN-ODT) 4 MG disintegrating tablet Dissolve 1 (one) tablet (4 mg total) on top of tongue every 8 (eight) hours as needed for nausea . 20 tablet 5 senna-docusate (SENNA-S) 8.6-50 mg Take 2 (two) tablets by mouth daily . 60 tablet 5 tirzepatide (MOUNJARO) 2.5 mg/0.5 mL Pen Inject 0.5 mL under the skin every 7 days . 2 mL 0 traZODone (DESYREL) 50 MG tablet Take 1 (one) tablet (50 mg total) by mouth nightly as needed . 30 tablet 2 No current facility-administered medications for this visit. Problem List Items Addressed This Visit Digestive Iron malabsorption Other S/P bariatric surgery Iron deficiency Other Visit Diagnoses Insulin resistance - Primary Relevant Medications metFORMIN (GLUCOPHAGE-XR) 500 MG 24 hr tablet Atypical eating disorder Overweight (BMI 25.0-29.9) BMI 27.0-27.9,adult Continue the currently prescribed calorie load and composition. Return in about 2 months (around 11/28/2023) for Recheck. Counseling Time: minutes more than 50% of the time face to face discussing findings and coordinating care regarding medication management and education for disease processes and treatment protocol. Provider Location: [facility] [address] [facility] [id number] [facility] [place] [facility] [id number] [facility] [address] [facility] [id number] Virtual Visit [facility] 10/09/23 Kvng Gonzalez MD Provider Location: Patient Location Medical Secretary: None Patient Location: home Patient: Reema Ventura Date of : 1970 (53 y.o. female) PCP: Bhavesh Faust MD I instructed patient to contact me promptly with additional concerns. Virtual Visit Consent Statement: I discussed risks, benefits and alternatives of telemedicine consultation with the patient (and any accompanying persons) including the risks that the patient s personal health details and medical records will be discussed over interactive video/audio/telecommunication technology, may be recorded, and that there are inherent diagnostic limitations compared to [id number] evaluations. They elected to proceed with the telemedicine consultation. Breakfast -Dann Zurdo [place] Breakfast bowl Lunch-turkey wrap with baked chips Dinner - Grilled chicken with veggies ( green beans , or broccoli) or rice and black moreno with grilled chicken Snacks - Leonidas Crackers ( my favorite) Been snacking a lot My appetite is bad , hungry eating things that aren t good for me. My activity level is low, working out and walking my dog about 1 or 2 a week 30 minutes, weights some cardio. My weight is 198 , Only meds I m taking are my thyroid meds , Zyrtec, Flonase , Senna, Trazodone as needed . documented in this encounter [facility] 06-20-2023 Telephone encount er Note VIJAYA 06/09SEP 01 Requested Prescriptions Pending Prescriptions Disp Refills levothyroxine (SYNTHROID, LEVOTHROID) 112 MCG tablet 30 tablet 3 Sig: Take 1 (one) tablet (112 mcg total) by mouth every morning . [facility] 06-20-2023 Miscellaneous Notes Formattin g of this note is different from the original. VIJAYA 06/09SEP 01 Requested Prescriptions Pending Prescriptions Disp Refills levothyroxine (SYNTHROID, LEVOTHROID) 112 MCG tablet 30 tablet 3 Sig: Take 1 (one) tablet (112 mcg total) by mouth every morning . documented in this encounter [facility] 06-09-2023 History of Presen t illness Narrative Chief Complaint Patient presents with Obesity Weight Loss Patient's history of diet, exercise, sleep, stress and appetite control reviewed and confirmed with patient, please see the medical office manager's note. Meal Plan Breakfast: Fruit smoothie with protein powder and collegen Lunch: Salad with some type of protein Dinner: Grilled chicken , veggies No of Snacks Per Day: 3 Liquid Intake What do you usually drink?: Water; Coffe What type of Alcohol do you drink?: None How many drinks per week?: 0 Physical Activity What are you currently doing - physical activity or exercise?: Working out , weights, cardio, How many times per week?: 4 How long do you exercise at each session?: 35-60 minutes depends on the da Any limitations you are currently having affecting your activity or exercise?: Yes, i have tennis elbow, i had a Cortizone shot last month, so been trying to work threw the soreness Appetite Levels Is your appetite well controlled at this time?: No Energy Levels Are your energy levels fairly good at this time?: Yes Quality of Sleep Are you sleeping well at this time?: Yes How many hours of sleep per night?: 8 Do you feel rested when you wake up in the morning?: Yes Do you have sleep apnea?: No Stress Levels What is the level of stress in your life currently? On the scale of 1 to 10, 10 being the most stressed.: 5 How is your general mood ?: OK Patient Medications Are you currently taking any medications for your weight?: No Patient Weight Most recent weight?: 188 Patient Blood Pressure Most recent Blood Pressure?: Not sure CARLA Frances who is a Body mass index is 26.07 kg/m . BP 121/86 Pulse 84 Ht 5' 11 (1.803 m) Wt 84.8 kg (186 lb 14.4 oz) LMP 05/24/2018 SpO2 98% BMI 26.07 kg/m Patient here today for recheck through the [place] [employer] [facility]. Patient admits to an increase in hunger/cravings. Energy levels are fair. Sleep is reasonable. Diet and exercise protocols are difficult to maintain due to appetite. Medications were reviewed today. Stress levels are manageable currently. For the rest of the review of systems and exam see the EMR. Struggling with access to GLP-1 therapy due to insurance issues. Impression: Problem List Items Addressed This Visit Other Iron deficiency Other Visit Diagnoses Insulin resistance - Primary Relevant Medications semaglutide 0.25 mg or 0.5 mg (2 mg/3 mL) Pen Atypical eating disorder Relevant Medications buPROPion (WELLBUTRIN SR) 100 MG 12 hr tablet Dyslipidemia Overweight (BMI 25.0-29.9) BMI 26.0-26.9,adult Plan: Work on macronutrient targets in the diet regular exercise within the limits orthopedics. Continue protein to carb ratios in her diet. We will try adding Wellbutrin for central volume control. Additionally, we will try to get her access to Ozempic for the insulin resistant state although that may not be a covered service under her insurance. We did discuss potentially using alogliptin in its place as off label sales [id number] option as a second line therapy. She knows to do one of the other but not both. Continue iron supplementation. We will reassess here in the office in 4 to 6 weeks and see how she is doing sooner if she is worse. This note was partially created using voice recognition software and is inherently subject to errors including those of syntax and sound-alike substitutions which may escape proofreading. In such instances, original meaning may be extrapolated by contextual derivation Medications reviewed with patient. The following portions of the patient's history were reviewed and updated as appropriate: allergies, current medications, past family history, past medical history, past social history, past surgical history and problem list . Review of Systems Constitutional: Positive for appetite change (cravings 10 am and 2pm--7pm) and fatigue. Negative for activity change and unexpected weight change. Respiratory: Negative for chest tightness, shortness of breath and wheezing. Cardiovascular: Negative for chest pain, palpitations and leg swelling. Gastrointestinal: Negative for constipation and diarrhea. Musculoskeletal: Negative for arthralgias, joint swelling and myalgias. Neurological: Negative for dizziness, light-headedness, numbness and headaches. Psychiatric/Behavioral: Negative for agitation, behavioral problems, decreased concentration, dysphoric mood and sleep disturbance. The patient is not nervous/anxious and is not hyperactive. Past Medical History: Diagnosis Date Arthritis Asthma Depression Disease of thyroid gland Lumbar back pain Social History Socioeconomic History Marital status: Tobacco Use Smoking status: Never Smokeless tobacco: Never Tobacco comments: 12-23-2021 Vaping Use Vaping Use: Never used Substance and Sexual Activity Alcohol use: Yes Comment: beer/ once a month Drug use: No Sexual activity: Not Currently Partners: Male Social History Narrative Living by herself 23 son , 21 daughter Social Determinants of Health Food Insecurity: No Food Insecurity (01/30/2021) Hunger Vital Sign Worried About Running Out of Food in the Last Year: Never true Ran Out of Food in the Last Year: Never true Social Connections: Unknown (01/30/2021) Social Connection and Isolation Panel [NHANES] Frequency of Social Gatherings with Friends and Family: Twice a week Current Outpatient Medications Medication Sig Dispense Refill cetirizine (ZyrTEC) 10 MG tablet Take 1 tablet (10 mg total) by mouth daily. 30 tablet 11 fluticasone propionate (FLONASE) 50 mcg/actuation nasal spray 1 (one) spray by NOT APPLICABLE route daily . levothyroxine (SYNTHROID, LEVOTHROID) 112 MCG tablet Take 1 (one) tablet (112 mcg total) by mouth every morning . 30 tablet 3 traZODone (DESYREL) 50 MG tablet Take 1 (one) tablet (50 mg total) by mouth nightly as needed . 30 tablet 2 alogliptin 25 mg Tab Take 0.5 (one-half) tablet (12.5 mg total) by mouth daily before lunch . 15 tablet 1 buPROPion (WELLBUTRIN SR) 100 MG 12 hr tablet Take 1 (one) tablet (100 mg total) by mouth every morning . 30 tablet 1 ferrous fumarate-folic acid 324 mg (106 mg iron)-1 mg Tab Take 1 tablet by mouth Daily With Food Take with 500mg of vitamin c . 30 tablet 1 melatonin 3 mg Tab Take 1 (one) tablet (3 mg total) by mouth as needed . ondansetron (ZOFRAN-ODT) 4 MG disintegrating tablet Dissolve 1 (one) tablet (4 mg total) on top of tongue every 8 (eight) hours as needed for nausea . 20 tablet 0 semaglutide 0.25 mg or 0.5 mg (2 mg/3 mL) Pen Inject 0.25 (one-quarter) mg under the skin every 7 days . 3 mL 0 senna-docusate (SENNA-S) 8.6-50 mg Take 2 (two) tablets by mouth daily . 60 tablet 5 senna-docusate (SENNA-S) 8.6-50 mg Take 1 (one) tablet by mouth daily as needed for constipation . 30 tablet 2 No current facility-administered medications for this visit. BP 121/86 Pulse 84 Ht 5' 11 (1.803 m) Wt 84.8 kg (186 lb 14.4 oz) LMP 05/24/2018 SpO2 98% BMI 26.07 kg/m Physical Exam Vitals and nursing note reviewed. Constitutional: General: She is not in acute distress. Appearance: She is well-developed. She is not ill-appearing. Cardiovascular: Rate and Rhythm: Normal rate and regular rhythm. Heart sounds: Normal heart sounds, S1 normal and S2 normal. No S3 or S4 sounds. Pulmonary: Effort: Pulmonary effort is normal. No accessory muscle usage, respiratory distress or retractions. Breath sounds: Normal breath sounds. No wheezing, rhonchi or rales. Neurological: Mental Status: She is alert and oriented to person, place, and time. Psychiatric: Speech: Speech normal. Behavior: Behavior normal. Behavior is cooperative. Thought Content: Thought content normal. Judgment: Judgment normal. Problem List Items Addressed This Visit Other Iron deficiency Other Visit Diagnoses Insulin resistance - Primary Relevant Medications semaglutide 0.25 mg or 0.5 mg (2 mg/3 mL) Pen Atypical eating disorder Relevant Medications buPROPion (WELLBUTRIN SR) 100 MG 12 hr tablet Dyslipidemia Overweight (BMI 25.0-29.9) BMI 26.0-26.9,adult Continue the currently prescribed calorie load and composition. Return in about 4 weeks (around 07/07/2023). Counseling Time: minutes more than 50% of the time face to face discussing findings and coordinating care regarding medication management and education for disease processes and treatment protocol. documented in this encounter [facility] 03-11-2023 Note Patient Name: Reema Ventura Procedure Date: 03/11/2023 12:27 PM Date of : 1970 Admit Type: Outpatient Site: [facility] 1 Ethnicity: Not or Race: White Attending MD: Tee George DO, [id number] Procedure: Colonoscopy Indications: Screening for colorectal malignant neoplasm Providers: Tee George DO (Doctor), Jayne Connolly RN (Nurse), Enedina Flower, Correction Officer Supervisor Referring: Bhavesh Faust Medicines: Midazolam 10 mg IV, Meperidine 50 mg IV, Glucagon 2 mg IV Complications: No immediate complications. Procedure: Pre-Anesthesia Assessment: - Prior to the procedure, a History and Physical was performed, and patient medications and allergies were reviewed. The patient is competent. The risks and benefits of the procedure and the sedation options and risks were discussed with the patient. All questions were answered and informed consent was obtained. Patient identification and proposed procedure were verified by the physician in the pre-procedure area. Mental Status Examination: alert and oriented. Airway Examination: normal oropharyngeal airway and neck mobility. Respiratory Examination: clear to auscultation. CV Examination: normal. Prophylactic Antibiotics: The patient does not require prophylactic antibiotics. Prior Anticoagulants: The patient has taken no anticoagulant or antiplatelet agents. ASA Grade Assessment: II - A patient with mild systemic disease. After reviewing the risks and benefits, the patient was deemed in satisfactory condition to undergo the procedure. The anesthesia plan was to use moderate sedation / analgesia (conscious sedation). Immediately prior to administration of medications, the patient was re-assessed for adequacy to receive sedatives. The heart rate, respiratory rate, oxygen saturations, blood pressure, adequacy of pulmonary ventilation, and response to care were monitored throughout the procedure. The physical status of the patient was re-assessed after the procedure. After I obtained informed consent, the scope was passed under direct vision. Throughout the procedure, the patient's blood pressure, pulse, and oxygen saturations were monitored continuously. The adult colonoscope was introduced through the anus and advanced to the ascending colon. The patient tolerated the procedure well. The colonoscopy was technically difficult and complex due to a redundant colon and a tortuous colon. Successful completion of the procedure was aided by increasing the dose of sedation medication, using manual pressure, withdrawing and reinserting the scope, withdrawing the scope and replacing with the adult endoscope and straightening and shortening the scope to obtain bowel loop reduction. The quality of the bowel preparation was excellent. The rectum was photographed. Findings: The perianal and digital rectal examinations were normal. Pertinent negatives include normal sphincter tone and no palpable rectal lesions. The transverse colon was significantly tortuous. Advancing the scope required withdrawing and reinserting the scope, withdrawing the scope and replacing with the adult endoscope and straightening and shortening the scope to obtain bowel loop reduction. Moderate Sedation: Moderate (conscious) sedation was administered by the nurse and supervised by the endoscopist. The following parameters were monitored: oxygen saturation, heart rate, blood pressure, and response to care. Total physician intraservice time was 26 minutes. Estimated Blood Loss: Estimated blood loss: none. Impression: - Tortuous colon. - No specimens collected. Recommendation: - Patient has a contact number available for emergen (more content not included)... [facility] - 03-08-2023 Telephone encount er Note Requested Prescriptions Pending Prescriptions Disp Refills semaglutide, weight loss, (Wegovy) 2.4 mg/0.75 mL Pen 9 mL 0 Sig: Inject 0.75 mL (2.4 mg total) under the skin every 7 days . [facility]. [facility] 03-08-2023 Miscellaneous Notes Formattin g of this note is different from the original. Requested Prescriptions Pending Prescriptions Disp Refills semaglutide, weight loss, (Wegovy) 2.4 mg/0.75 mL Pen 9 mL 0 Sig: Inject 0.75 mL (2.4 mg total) under the skin every 7 days . Patient states Rx needs to go to [facility] for coverage. 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 Adjusting dose with Carlos Floyd Checked recently , repeat next follow up documented in this encounter [facility] 01-18-2023 Evaluation + Plan note Associated Problem(s): Insomnia Sleep hygiene measures discussed at length with patient Trial of trazodone given today [facility] 01-18-2023 Miscellaneous Notes Associate d Problem(s): Insomnia Sleep hygiene measures discussed at length with patient Trial of trazodone given today Associated Problem(s): Mild major depression (HCC) Managed on Prozac With no concerns Associated Problem(s): Asthma Mild intermittent , chronic , not using her inhaler Associated Problem(s): 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 Adjusting dose with Carlos Floyd Checked recently , repeat next follow up documented in this encounter [facility] 01-18-2023 Evaluation + Plan note Associated Problem(s): Mild major depression (HCC) Managed on Proza With no concerns [facility] 01-18-2023 Evaluation + Plan note Associated Problem(s): Asthma Mild intermittent , chronic , not using her inhaler [facility] 01-18-2023 Evaluation + Plan note Associated Problem(s): 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 HPI: Reema Ventura is a 52 y.o. female presenting today to reestablish care. Former patient of [facility]. PMH of depression, HTN, hypothyroidism, and insomnia. Ear fullness and sinus congestion , right ear clogging that has been going on for a while now, wants to get it checked. Depression: Chronic for years , celexa 15 yrs then switched to prozac with weight gain. Has tried wellbutrin has not worked for her. Currently stable on Prozac which seems to work well with her. HTN: IVETTE ruled out especially after she lost the weight. Currently diet controlled. Hypothyroidism: Chronic roland , stable at 112 mcg of levothyroxine Adjusting dose with Carlos Floyd Insomnia: Chronic on melatonin 3 mg , done 6 mg but would sleep well for 2 hours and will wake up on her own. Asthma: Mild intermittent , chronic , seldom when she has to use the inhalers mainly around the allergy season 298 lost 1125 lb with gastric bypass 2006 and then [facility] oct 2021 [facility] now for the past year Past Medical History: Diagnosis Date Arthritis Asthma Depression Disease of thyroid gland Lumbar back pain Past Surgical History: Procedure Laterality Date ANKLE SURGERY Left 09/04/2018 Left Ankle OS Trigonum excision-Dr Meza ANKLE SURGERY Left 06/18/2019 /ZOROASTRIANISM - GASTRIC BYPASS 2006 TENDON REPAIR HAND/FINGER Left 12/19/2020 Procedure: Left index finger extensor tendon repair percutaneous pinning; Surgeon: Ananya Madrigal MD; Location: Main OR; Service: Orthopedic TONSILLECTOMY TUBAL LIGATION 2000 Family History Problem Relation Age of Onset Hypertension Mother Heart disease Mother Cancer Mother breast cancer Stroke Mother Clotting disorder Mother Coronary artery disease Father Hypertension Father Diabetes Father Heart disease Father Stroke Father Clotting disorder Father Social History Tobacco Use Smoking status: Never Smokeless tobacco: Never Tobacco comments: 12-23-2021 Vaping Use Vaping status: Never Used Substance Use Topics Alcohol use: Yes Comment: beer/ once a month Drug use: No Review of Systems Vitals: 01/17/23 0719 BP: 118/78 BP Location: Right arm Patient Position: Sitting BP Cuff Size: X-large Adult Pulse: 78 Resp: 16 Temp: 98 F (36.7 C) TempSrc: Temporal SpO2: 98% Weight: 76.2 kg (168 lb) Height: 5' 11 Estimated body mass index is 23.43 kg/m as calculated from the following: Height as of this encounter: 5' 11 . Weight as of this encounter: 76.2 kg (168 lb). Physical Exam Constitutional: General: She is not in acute distress. Appearance: She is not ill-appearing. HENT: Head: Normocephalic and atraumatic. Right Ear: Tympanic membrane, ear canal and external ear normal. Left Ear: Tympanic membrane, ear canal and external ear normal. Nose: Nose normal. Mouth/Throat: Mouth: Mucous membranes are moist. Pharynx: Oropharynx is clear. No oropharyngeal exudate or posterior oropharyngeal erythema. Eyes: Extraocular Movements: Extraocular movements intact. Conjunctiva/sclera: Conjunctivae normal. Pupils: Pupils are equal, round, and reactive to light. Cardiovascular: Rate and Rhythm: Normal rate and regular rhythm. Pulses: Normal pulses. Heart sounds: Normal heart sounds. No murmur heard. No gallop. Pulmonary: Effort: Pulmonary effort is normal. Breath sounds: Normal breath sounds. No wheezing, rhonchi or rales. Chest: Chest wall: No tenderness. Abdominal: General: Abdomen is flat. Bowel sounds are normal. There is no distension. Palpations: Abdomen is soft. There is no mass. Tenderness: There is no abdominal tenderness. There is no right CVA tenderness, left CVA tenderness, guarding or rebound. Musculoskeletal: General: No tenderness. Normal range of motion. Cervical back: Normal range of motion and neck supple. No rigidity. No muscular tenderness. Right lower leg: No edema. Left lower leg: No edema. Lymphadenopathy: Cervical: No cervical adenopathy. Skin: General: Skin is warm. Findings: No erythema or rash. Neurological: General: No focal deficit present. Mental Status: She is alert and oriented to person, place, and time. Sensory: No sensory deficit. Motor: No weakness. Gait: Gait normal. Psychiatric: Mood and Affect: Mood normal. Behavior: Behavior normal. Thought Content: Thought content normal. Judgment: Judgment normal. OARRS/NARxCHECK Report Received and Assessed: 08/17/2021 Date controlled substance agreement signed: 08/17/2021 Date of last drug screen: 08/17/2021 Functional Assessment: No data found @Exam@ PHQ9: REGINE-7 Over the last 2 weeks, how often have you been bothered by the following problems? Feeling nervous, anxious or on edge: Not at all Not being able to stop or control worrying: Several days Worrying too much about different things: Not at all Trouble relaxing: Not at all Being so restless that it is hard to sit still: Not at all Becoming easily annoyed or irritable: Not at all Feeling afraid as if something awful might happen: Not at all REGINE-7 Score: 1 Tobacco Counseling: Counseling given: Not Answered Tobacco comments: 12-23-2021 Patient's Medications New Prescriptions TRAZODONE (DESYREL) 50 MG TABLET Take 1 (one) tablet (50 mg total) by mouth nightly as needed . Previous Medications ATORVASTATIN (LIPITOR) 10 MG TABLET Take 1 (one) tablet (10 mg total) by mouth daily . CETIRIZINE (ZYRTEC) 10 MG TABLET Take 1 tablet (10 mg total) by mouth daily. FERROUS FUMARATE-FOLIC ACID 324 MG (106 MG IRON)-1 MG TAB Take 1 tablet by mouth Daily With Food Take with 500mg of vitamin c . FLUOXETINE (PROZAC) 10 MG CAPSULE Take 1 (one) capsule (10 mg total) by mouth daily . FLUTICASONE PROPIONATE (FLONASE) 50 MCG/ACTUATION NASAL SPRAY 1 (one) spray by NOT APPLICABLE route daily . FOLIC ACID (FOLVITE) 1 MG TABLET Take 1 (one) tablet (1,000 mcg total) by mouth daily . LEVOTHYROXINE (SYNTHROID, LEVOTHROID) 112 MCG TABLET Take 1 (one) tablet (112 mcg total) by mouth every morning . MELATONIN 3 MG TAB Take 1 (one) tablet (3 mg total) by mouth as needed . SEMAGLUTIDE (RYBELSUS) 14 MG TAB Take 1 (one) tablet (14 mg total) by mouth daily Take 1 tablet (14 mg) by oral route once daily in the morning 30 min before any food, drink or medication with no more than 4 oz plain water. . SENNA-DOCUSATE (SENNA-S) 8.6-50 MG Take 2 (two) tablets by mouth daily . Modified Medications No medications on file Discontinued Medications ALOGLIPTIN 25 MG TAB Take 0.5 (one-half) tablet (12.5 mg total) by mouth daily before lunch . METFORMIN (GLUCOPHAGE-XR) 500 MG 24 HR TABLET Take 1 (one) tablet (500 mg total) by mouth daily with breakfast . NALTREXONE (DEPADE, REVIA) 50 MG TABLET 1/4 tab po every day with breakfast for 2 weeks then 1/4 tab po with breakfast and 1/4 tab with lunch . 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 Adjusting dose with Carlos Floyd Checked recently , repeat next follow up Respiratory Asthma Mild intermittent , chronic , not using her inhaler Other Anxiety Mild major depression (HCC) Managed on Prozac With no concerns Relevant Medications traZODone (DESYREL) 50 MG tablet Insomnia - Primary Sleep hygiene measures discussed at length with patient Trial of trazodone given today Relevant Medications traZODone (DESYREL) 50 MG tablet Other Visit Diagnoses Encounter for screening for malignant neoplasm of breast, unspecified screening modality Relevant Orders Mammography Screening Daniel Bilateral Colon cancer screening Relevant Orders Ambulatory referral to Gastroenterology Return in about 2 months (around 03/19/2023) for Annual Exam. BHAVESH FAUST MD [facility] [address] [facility] [id number] Dept: [phone] documented in this encounter [facility] 01-17-2023 History of Presen t illness Narrative This MA faxed PAMELA to /OBGYN office Chief Complaint Patient presents with Follow-up C Spring pt. HPI: Reema Ventura is a 52 y.o. female presenting today to reestablish care. Former patient of [facility]. PMH of depression, HTN, hypothyroidism, and insomnia. Ear fullness and sinus congestion , right ear clogging that has been going on for a while now, wants to get it checked. Depression: Chronic for years , celexa 15 yrs then switched to prozac with weight gain. Has tried wellbutrin has not worked for her. Currently stable on Prozac which seems to work well with her. HTN: IVETTE ruled out especially after she lost the weight. Currently diet controlled. Hypothyroidism: Chronic roland , stable at 112 mcg of levothyroxine Adjusting dose with Carlos Floyd Insomnia: Chronic on melatonin 3 mg , done 6 mg but would sleep well for 2 hours and will wake up on her own. Asthma: Mild intermittent , chronic , seldom when she has to use the inhalers mainly around the allergy season 298 lost 1125 lb with gastric bypass 2006 and then started oct 2021 with medication management on gladysteresa Casas now for the past year Past Medical History: Diagnosis Date Arthritis Asthma Depression Disease of thyroid gland Lumbar back pain Past Surgical History: Procedure Laterality Date ANKLE SURGERY Left 09/04/2018 Left Ankle OS Trigonum excision-Dr Meza ANKLE SURGERY Left 06/18/2019 /ZOROASTRIANISM - GASTRIC BYPASS 2006 TENDON REPAIR HAND/FINGER Left 12/19/2020 Procedure: Left index finger extensor tendon repair percutaneous pinning; Surgeon: Ananya Madrigal MD; Location: Main OR; Service: Orthopedic TONSILLECTOMY TUBAL LIGATION 2000 Family History Problem Relation Age of Onset Hypertension Mother Heart disease Mother Cancer Mother breast cancer Stroke Mother Clotting disorder Mother Coronary artery disease Father Hypertension Father Diabetes Father Heart disease Father Stroke Father Clotting disorder Father Social History Tobacco Use Smoking status: Never Smokeless tobacco: Never Tobacco comments: 12-23-2021 Vaping Use Vaping status: Never Used Substance Use Topics Alcohol use: Yes Comment: beer/ once a month Drug use: No Review of Systems Vitals: 01/17/23 0719 BP: 118/78 BP Location: Right arm Patient Position: Sitting BP Cuff Size: X-large Adult Pulse: 78 Resp: 16 Temp: 98 F (36.7 C) TempSrc: Temporal SpO2: 98% Weight: 76.2 kg (168 lb) Height: 5' 11 Estimated body mass index is 23.43 kg/m as calculated from the following: Height as of this encounter: 5' 11 . Weight as of this encounter: 76.2 kg (168 lb). Physical Exam Constitutional: General: She is not in acute distress. Appearance: She is not ill-appearing. HENT: Head: Normocephalic and atraumatic. Right Ear: Tympanic membrane, ear canal and external ear normal. Left Ear: Tympanic membrane, ear canal and external ear normal. Nose: Nose normal. Mouth/Throat: Mouth: Mucous membranes are moist. Pharynx: Oropharynx is clear. No oropharyngeal exudate or posterior oropharyngeal erythema. Eyes: Extraocular Movements: Extraocular movements intact. Conjunctiva/sclera: Conjunctivae normal. Pupils: Pupils are equal, round, and reactive to light. Cardiovascular: Rate and Rhythm: Normal rate and regular rhythm. Pulses: Normal pulses. Heart sounds: Normal heart sounds. No murmur heard. No gallop. Pulmonary: Effort: Pulmonary effort is normal. Breath sounds: Normal breath sounds. No wheezing, rhonchi or rales. Chest: Chest wall: No tenderness. Abdominal: General: Abdomen is flat. Bowel sounds are normal. There is no distension. Palpations: Abdomen is soft. There is no mass. Tenderness: There is no abdominal tenderness. There is no right CVA tenderness, left CVA tenderness, guarding or rebound. Musculoskeletal: General: No tenderness. Normal range of motion. Cervical back: Normal range of motion and neck supple. No rigidity. No muscular tenderness. Right lower leg: No edema. Left lower leg: No edema. Lymphadenopathy: Cervical: No cervical adenopathy. Skin: General: Skin is warm. Findings: No erythema or rash. Neurological: General: No focal deficit present. Mental Status: She is alert and oriented to person, place, and time. Sensory: No sensory deficit. Motor: No weakness. Gait: Gait normal. Psychiatric: Mood and Affect: Mood normal. Behavior: Behavior normal. Thought Content: Thought content normal. Judgment: Judgment normal. OARRS/NARxCHECK Report Received and Assessed: 08/17/2021 Date controlled substance agreement signed: 08/17/2021 Date of last drug screen: 08/17/2021 Functional Assessment: No data found @Exam@ PHQ9: REGINE-7 Over the last 2 weeks, how often have you been bothered by the following problems? Feeling nervous, anxious or on edge: Not at all Not being able to stop or control worrying: Several days Worrying too much about different things: Not at all Trouble relaxing: Not at all Being so restless that it is hard to sit still: Not at all Becoming easily annoyed or irritable: Not at all Feeling afraid as if something awful might happen: Not at all REGINE-7 Score: 1 Tobacco Counseling: Counseling given: Not Answered Tobacco comments: 12-23-2021 Patient's Medications New Prescriptions TRAZODONE (DESYREL) 50 MG TABLET Take 1 (one) tablet (50 mg total) by mouth nightly as needed . Previous Medications ATORVASTATIN (LIPITOR) 10 MG TABLET Take 1 (one) tablet (10 mg total) by mouth daily . CETIRIZINE (ZYRTEC) 10 MG TABLET Take 1 tablet (10 mg total) by mouth daily. FERROUS FUMARATE-FOLIC ACID 324 MG (106 MG IRON)-1 MG TAB Take 1 tablet by mouth Daily With Food Take with 500mg of vitamin c . FLUOXETINE (PROZAC) 10 MG CAPSULE Take 1 (one) capsule (10 mg total) by mouth daily . FLUTICASONE PROPIONATE (FLONASE) 50 MCG/ACTUATION NASAL SPRAY 1 (one) spray by NOT APPLICABLE route daily . FOLIC ACID (FOLVITE) 1 MG TABLET Take 1 (one) tablet (1,000 mcg total) by mouth daily . LEVOTHYROXINE (SYNTHROID, LEVOTHROID) 112 MCG TABLET Take 1 (one) tablet (112 mcg total) by mouth every morning . MELATONIN 3 MG TAB Take 1 (one) tablet (3 mg total) by mouth as needed . SEMAGLUTIDE (RYBELSUS) 14 MG TAB Take 1 (one) tablet (14 mg total) by mouth daily Take 1 tablet (14 mg) by oral route once daily in the morning 30 min before any food, drink or medication with no more than 4 oz plain water. . SENNA-DOCUSATE (SENNA-S) 8.6-50 MG Take 2 (two) tablets by mouth daily . Modified Medications No medications on file Discontinued Medications ALOGLIPTIN 25 MG TAB Take 0.5 (one-half) tablet (12.5 mg total) by mouth daily before lunch . METFORMIN (GLUCOPHAGE-XR) 500 MG 24 HR TABLET Take 1 (one) tablet (500 mg total) by mouth daily with breakfast . NALTREXONE (DEPADE, REVIA) 50 MG TABLET 1/4 tab po every day with breakfast for 2 weeks then 1/4 tab po with breakfast and 1/4 tab with lunch . 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 Adjusting dose with Carlos Floyd Checked recently , repeat next follow up Respiratory Asthma Mild intermittent , chronic , not using her inhaler Other Anxiety Mild major depression (HCC) Managed on Prozac With no concerns Relevant Medications traZODone (DESYREL) 50 MG tablet Insomnia - Primary Sleep hygiene measures discussed at length with patient Trial of trazodone given today Relevant Medications traZODone (DESYREL) 50 MG tablet Other Visit Diagnoses Encounter for screening for malignant neoplasm of breast, unspecified screening modality Relevant Orders Mammography Screening Daniel Bilateral Colon cancer screening Relevant Orders Ambulatory referral to Gastroenterology Return in about 2 months (around 03/19/2023) for Annual Exam. BHAVESH FAUST MD [facility] [facility] [address] [facility] [id number] Dept: [phone] documented in this encounter [facility] 12-15-2022 History of Presen t illness Narrative Diet: What do you usually have to eat for the following meals: Breakfast oikos triple 0 yogurt Lunch chicken salad Dinner chicken, veggie, yogurt Number of snacks per day: a lot Frequency of skipping meals per day if any: 0 If you are tracking; how many calories are you getting and how many grams of protein and carbohydrate are getting a day? What do you usually drink? Water, crystal light Do you drink alcohol? What type? Beer How many drinks per week? 0-1/month Physical Activity What are you currently doing as activity or exercise? Weights, walking How many times per week? 5 How long at each session? 30-60 mins Any limitations you are currently having affecting your activity or exercise? no Appetite: Is your appetite well controlled at this time? No - boredom Energy levels: Are your energy levels fairly good at this time? Yes Quality of Sleep: Are you sleeping well at this time? Yes How many hours of sleep per night? 6-7 Do you feel rested when you wake up in the morning? Yes Do you have sleep apnea and if you do are you currently treated? No Level of Stress: What is the level of stress in your life currently?- scale 1 to 10, 10 being the most stressed. 3 How is your general mood? ok Medications: If you are currently taking any medication for your weight, are you having any problems with them? No wegovy for 5 weeks Chief Complaint Patient presents with Obesity Weight Loss MI'KMAQ: Pt who is a Body mass index is 23.11 kg/m . BP 125/84 Pulse 66 Ht 5' 11 (1.803 m) Wt 75.2 kg (165 lb 11.2 oz) LMP 07/03/2018 (Approximate) SpO2 99% BMI 23.11 kg/m Patient's history of diet, exercise, sleep, stress and appetite control reviewed and confirmed with patient, please see the medical office manager's note. Patient here today for recheck through the [place] [facility]. Patient admits to an increase in hunger/cravings. Energy levels are fair. Sleep is reasonable. Diet and exercise protocols are difficult to maintain due to appetite. Medications were reviewed today. Stress levels are manageable currently. For the rest of the review of systems and exam see the EMR. States she has been struggling mostly with reward eating behavior tends to be late morning afternoon and evening between meals. Volume controls been fine. 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 She has been exercising vigorously. Problem List Items Addressed This Visit Other Iron deficiency Other Visit Diagnoses Atypical eating disorder - Primary Relevant Medications naltrexone (DEPADE, REVIA) 50 mg tablet Insulin resistance Relevant Medications alogliptin 25 mg Tab Dyslipidemia BMI 23.0-23.9, adult Plan: Work on macronutrient targets in her diet continue the exercise protocols. Her body composition analysis is to normal range with regards to fat mass. BMI is also well within normal range. We will see if she can continue to stay off the wegovy entirely. We will add some naltrexone for the reward eating behavior to see if that helps in conjunction with redirection techniques. Additionally we did give her prescription for alogliptin to help with set point if those techniques are not effective. Muscle mass is back in normal range however continue the current therapies. Recheck in 3 months unless she is worse. Live visit with body comp at that time This note was partially created using voice recognition software and is inherently subject to errors including those of syntax and sound-alike substitutions which may escape proofreading. In such instances, original meaning may be extrapolated by contextual derivation Medications reviewed with patient. The following portions of the patient's history were reviewed and updated as appropriate: allergies, current medications, past family history, past medical history, past social history, past surgical history and problem list . Review of Systems Constitutional: Negative for activity change, appetite change, fatigue and unexpected weight change. Respiratory: Negative for chest tightness, shortness of breath and wheezing. Cardiovascular: Negative for chest pain, palpitations and leg swelling. Gastrointestinal: Negative for constipation and diarrhea. Musculoskeletal: Negative for arthralgias, joint swelling and myalgias. Neurological: Negative for dizziness, light-headedness, numbness and headaches. Psychiatric/Behavioral: Negative for agitation, behavioral problems, decreased concentration, dysphoric mood and sleep disturbance. The patient is not nervous/anxious and is not hyperactive. Past Medical History: Diagnosis Date Arthritis Asthma Depression Disease of thyroid gland Lumbar back pain Social History Socioeconomic History Marital status: Single Tobacco Use Smoking status: Never Smokeless tobacco: Never Tobacco comments: 12-23-2021 Vaping Use Vaping Use: Never used Substance and Sexual Activity Alcohol use: Yes Comment: beer/ once a month Drug use: No Sexual activity: Not Currently Partners: Male Current Outpatient Medications Medication Sig Dispense Refill atorvastatin (LIPITOR) 10 MG tablet Take 1 (one) tablet (10 mg total) by mouth daily . 90 tablet 3 cetirizine (ZyrTEC) 10 MG tablet Take 1 tablet (10 mg total) by mouth daily. 30 tablet 11 FLUoxetine (PROZAC) 10 MG capsule Take 1 (one) capsule (10 mg total) by mouth daily . 30 capsule 5 folic acid (FOLVITE) 1 MG tablet Take 1 (one) tablet (1,000 mcg total) by mouth daily . levothyroxine (SYNTHROID, LEVOTHROID) 112 MCG tablet Take 1 (one) tablet (112 mcg total) by mouth every morning . 30 tablet 1 melatonin 3 mg Tab Take 1 (one) tablet (3 mg total) by mouth as needed . senna-docusate (SENNA-S) 8.6-50 mg Take 2 (two) tablets by mouth daily . 60 tablet 5 alogliptin 25 mg Tab Take 0.5 (one-half) tablet (12.5 mg total) by mouth daily before lunch . 15 tablet 1 ferrous fumarate-folic acid 324 mg (106 mg iron)-1 mg Tab Take 1 tablet by mouth Daily With Food Take with 500mg of vitamin c . 30 tablet 1 naltrexone (DEPADE, REVIA) 50 mg tablet 1/4 tab po every day with breakfast for 2 weeks then 1/4 tab po with breakfast and 1/4 tab with lunch . 15 tablet 1 semaglutide, weight loss, (Wegovy) 2.4 mg/0.75 mL Pen Inject 0.75 mL (2.4 mg total) under the skin every 7 days . (Patient not taking: Reported on 12/07/2022 .) 9 mL 0 No current facility-administered medications for this visit. BP 125/84 Pulse 66 Ht 5' 11 (1.803 m) Wt 75.2 kg (165 lb 11.2 oz) LMP 07/03/2018 (Approximate) SpO2 99% BMI 23.11 kg/m Physical Exam Vitals and nursing note reviewed. Constitutional: General: She is not in acute distress. Appearance: She is well-developed. She is not ill-appearing. Cardiovascular: Rate and Rhythm: Normal rate and regular rhythm. Heart sounds: Normal heart sounds, S1 normal and S2 normal. No S3 or S4 sounds. Pulmonary: Effort: Pulmonary effort is normal. No accessory muscle usage, respiratory distress or retractions. Breath sounds: Normal breath sounds. No wheezing, rhonchi or rales. Neurological: Mental Status: She is alert and oriented to person, place, and time. Psychiatric: Speech: Speech normal. Behavior: Behavior normal. Behavior is cooperative. Thought Content: Thought content normal. Judgment: Judgment normal. Problem List Items Addressed This Visit Other Iron deficiency Other Visit Diagnoses Atypical eating disorder - Primary Relevant Medications naltrexone (DEPADE, REVIA) 50 mg tablet Insulin resistance Relevant Medications alogliptin 25 mg Tab Dyslipidemia BMI 23.0-23.9, adult Continue the currently prescribed calorie load and composition. Return in about 3 months (around 03/06/2023). Counseling Time: minutes more than 50% of the time face to face discussing findings and coordinating care regarding medication management and education for disease processes and treatment protocol. documented in this encounter [facility] 12-14-2022 Telephone encount er Note [facility] 12/07AUG 28 Requested Prescriptions Pending Prescriptions Disp Refills levothyroxine (SYNTHROID, LEVOTHROID) 112 MCG tablet 30 tablet 1 Sig: Take 1 (one) tablet (112 mcg total) by mouth every morning . [facility] 12-14-2022 Miscellaneous Notes Formattin g of this note is different from the original. [facility] 12/07AUG 28 Requested Prescriptions Pending Prescriptions Disp Refills levothyroxine (SYNTHROID, LEVOTHROID) 112 MCG tablet 30 tablet 1 Sig: Take 1 (one) tablet (112 mcg total) by mouth every morning . documented in this encounter [facility] 12-07-2022 History of Presen t illness Narrative Chief Complaint Patient presents with Obesity Weight Loss MI'KMAQ: Pt who is a Body mass index is 23.11 kg/m . BP 125/84 Pulse 66 Ht 5' 11 (1.803 m) Wt 75.2 kg (165 lb 11.2 oz) LMP 07/03/2018 (Approximate) SpO2 99% BMI 23.11 kg/m Patient's history of diet, exercise, sleep, stress and appetite control reviewed and confirmed with patient, please see the medical office manager's note. Patient here today for recheck through the [place] [employer] [facility]. Patient admits to an increase in hunger/cravings. Energy levels are fair. Sleep is reasonable. Diet and exercise protocols are difficult to maintain due to appetite. Medications were reviewed today. Stress levels are manageable currently. For the rest of the review of systems and exam see the EMR. States she has been struggling mostly with reward eating behavior tends to be late morning afternoon and evening between meals. Volume controls been fine. 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 She has been exercising vigorously. Problem List Items Addressed This Visit Other Iron deficiency Other Visit Diagnoses Atypical eating disorder - Primary Relevant Medications naltrexone (DEPADE, REVIA) 50 mg tablet Insulin resistance Relevant Medications alogliptin 25 mg Tab Dyslipidemia BMI 23.0-23.9, adult Plan: Work on macronutrient targets in her diet continue the exercise protocols. Her body composition analysis is to normal range with regards to fat mass. BMI is also well within normal range. We will see if she can continue to stay off the wegovy entirely. We will add some naltrexone for the reward eating behavior to see if that helps in conjunction with redirection techniques. Additionally we did give her prescription for alogliptin to help with set point if those techniques are not effective. Muscle mass is back in normal range however continue the current therapies. Recheck in 3 months unless she is worse. Live visit with body comp at that time This note was partially created using voice recognition software and is inherently subject to errors including those of syntax and sound-alike substitutions which may escape proofreading. In such instances, original meaning may be extrapolated by contextual derivation Medications reviewed with patient. The following portions of the patient's history were reviewed and updated as appropriate: allergies, current medications, past family history, past medical history, past social history, past surgical history and problem list . Review of Systems Constitutional: Negative for activity change, appetite change, fatigue and unexpected weight change. Respiratory: Negative for chest tightness, shortness of breath and wheezing. Cardiovascular: Negative for chest pain, palpitations and leg swelling. Gastrointestinal: Negative for constipation and diarrhea. Musculoskeletal: Negative for arthralgias, joint swelling and myalgias. Neurological: Negative for dizziness, light-headedness, numbness and headaches. Psychiatric/Behavioral: Negative for agitation, behavioral problems, decreased concentration, dysphoric mood and sleep disturbance. The patient is not nervous/anxious and is not hyperactive. Past Medical History: Diagnosis Date Arthritis Asthma Depression Disease of thyroid gland Lumbar back pain Social History Socioeconomic History Marital status: Single Tobacco Use Smoking status: Never Smokeless tobacco: Never Tobacco comments: 12-23-2021 Vaping Use Vaping Use: Never used Substance and Sexual Activity Alcohol use: Yes Comment: beer/ once a month Drug use: No Sexual activity: Not Currently Partners: Male Current Outpatient Medications Medication Sig Dispense Refill atorvastatin (LIPITOR) 10 MG tablet Take 1 (one) tablet (10 mg total) by mouth daily . 90 tablet 3 cetirizine (ZyrTEC) 10 MG tablet Take 1 tablet (10 mg total) by mouth daily. 30 tablet 11 FLUoxetine (PROZAC) 10 MG capsule Take 1 (one) capsule (10 mg total) by mouth daily . 30 capsule 5 folic acid (FOLVITE) 1 MG tablet Take 1 (one) tablet (1,000 mcg total) by mouth daily . levothyroxine (SYNTHROID, LEVOTHROID) 112 MCG tablet Take 1 (one) tablet (112 mcg total) by mouth every morning . 30 tablet 1 melatonin 3 mg Tab Take 1 (one) tablet (3 mg total) by mouth as needed . senna-docusate (SENNA-S) 8.6-50 mg Take 2 (two) tablets by mouth daily . 60 tablet 5 alogliptin 25 mg Tab Take 0.5 (one-half) tablet (12.5 mg total) by mouth daily before lunch . 15 tablet 1 ferrous fumarate-folic acid 324 mg (106 mg iron)-1 mg Tab Take 1 tablet by mouth Daily With Food Take with 500mg of vitamin c . 30 tablet 1 naltrexone (DEPADE, REVIA) 50 mg tablet 1/4 tab po every day with breakfast for 2 weeks then 1/4 tab po with breakfast and 1/4 tab with lunch . 15 tablet 1 semaglutide, weight loss, (Wegovy) 2.4 mg/0.75 mL Pen Inject 0.75 mL (2.4 mg total) under the skin every 7 days . (Patient not taking: Reported on 12/07/2022 .) 9 mL 0 No current facility-administered medications for this visit. BP 125/84 Pulse 66 Ht 5' 11 (1.803 m) Wt 75.2 kg (165 lb 11.2 oz) LMP 07/03/2018 (Approximate) SpO2 99% BMI 23.11 kg/m Physical Exam Vitals and nursing note reviewed. Constitutional: General: She is not in acute distress. Appearance: She is well-developed. She is not ill-appearing. Cardiovascular: Rate and Rhythm: Normal rate and regular rhythm. Heart sounds: Normal heart sounds, S1 normal and S2 normal. No S3 or S4 sounds. Pulmonary: Effort: Pulmonary effort is normal. No accessory muscle usage, respiratory distress or retractions. Breath sounds: Normal breath sounds. No wheezing, rhonchi or rales. Neurological: Mental Status: She is alert and oriented to person, place, and time. Psychiatric: Speech: Speech normal. Behavior: Behavior normal. Behavior is cooperative. Thought Content: Thought content normal. Judgment: Judgment normal. Problem List Items Addressed This Visit Other Iron deficiency Other Visit Diagnoses Atypical eating disorder - Primary Relevant Medications naltrexone (DEPADE, REVIA) 50 mg tablet Insulin resistance Relevant Medications alogliptin 25 mg Tab Dyslipidemia BMI 23.0-23.9, adult Continue the currently prescribed calorie load and composition. Return in about 3 months (around 03/06/2023). Counseling Time: minutes more than 50% of the time face to face discussing findings and coordinating care regarding medication management and education for disease processes and treatment protocol. documented in this encounter [facility] 11-16-2022 Telephone encount er Note Patient is requesting Pharmacy change: [facility] mail order pharmacy and a 90 day supply refill Requested Prescriptions Pending Prescriptions Disp Refills semaglutide, weight loss, (Wegovy) 2.4 mg/0.75 mL Pen 9 mL 0 Sig: Inject 0.75 mL (2.4 mg total) under the skin every 7 days . [facility] 11-16-2022 Miscellaneous Notes Formattin g of this note is different from the original. Patient is requesting Pharmacy change: [facility] mail order pharmacy and a 90 day supply refill Requested Prescriptions Pending Prescriptions Disp Refills semaglutide, weight loss, (Wegovy) 2.4 mg/0.75 mL Pen 9 mL 0 Sig: Inject 0.75 mL (2.4 mg total) under the skin every 7 days . documented in this encounter [facility] 11-15-2022 Telephone encount er Note [facility] 09/0612/07/22 Requested Prescriptions Pending Prescriptions Disp Refills senna-docusate (SENNA-S) 8.6-50 mg 60 tablet 5 Sig: Take 2 (two) tablets by mouth daily . [facility] 11-15-2022 Miscellaneous Notes Formattin g of this note is different from the original. [facility] 09/0612/07/22 Requested Prescriptions Pending Prescriptions Disp Refills senna-docusate (SENNA-S) 8.6-50 mg 60 tablet 5 Sig: Take 2 (two) tablets by mouth daily . documented in this encounter [facility] 11-10-2022 Telephone encount er Note [facility] 09/0612/07/22 Requested Prescriptions Pending Prescriptions Disp Refills levothyroxine (SYNTHROID, LEVOTHROID) 112 MCG tablet 30 tablet 1 Sig: Take 1 (one) tablet (112 mcg total) by mouth every morning . [facility] 11-10-2022 Miscellaneous Notes Formattin g of this note is different from the original. [facility] 09/06 NOV 12/07/22 Requested Prescriptions Pending Prescriptions Disp Refills levothyroxine (SYNTHROID, LEVOTHROID) 112 MCG tablet 30 tablet 1 Sig: Take 1 (one) tablet (112 mcg total) by mouth every morning . documented in this encounter [facility] 10-12-2022 History of Presen t illness Narrative General Plastics Review of Systems: Do you have any of the following: Chills, Fatigue, Fever or Night Sweats: no. Ear pain or eye discharge: no. Hearing loss or visual changes: no. Sore throat or chronic cough: no. Shortness of breath: no. Chest pain, swelling, or heart palpitations: no. Abdominal pain: no. Constipation or diarrhea: no. Heartburn or Nausea: no. Rash or skin problems: no. Dizziness or numbness: no. Headaches or Migraines: no. Seizures: no. Joint pain, joint swelling or muscle weakness: no. Bruise or bleed easily: no. Any swollen lymph nodes: no. Have you used any nicotine products in the last 3 months? no. Do you use any cannabis, THC or marijuana containing products? no. Are you currently taking the medication Adipex? no. Subjective: Reema Ventura is an 52 y.o. female who presents for evaluation of Abdominoplasty done on 08/13/22. She denies any problems. She continues to wear compression garment. She is massaging her incisions a few times a day. Allergies Allergen Reactions Cat Dander Itching Sneeze Grass [*Seasonal] Dyspnea Molds & Smuts Rash Codeine Other reaction(s): Unknown Current Outpatient Medications Medication Sig Dispense Refill atorvastatin 10 MG tablet Take 10 mg by mouth daily. am Cetirizine HCl (ZYRTEC PO) Take by mouth daily. [facility] Purelax 17 GM/SCOOP Powder powder as needed. FLUoxetine 10 MG capsule Take 10 mg by mouth daily. fluticasone 50 MCG/ACT Suspension nasal spray 1 spray by Does Not Apply route daily. levothyroxine 112 MCG tablet Take 112 mcg by mouth. Tuesday, Tuesday, Tuesday; am Senexon-S 8.6-50 MG per tablet TAKE 2 (TWO) TABLETS BY MOUTH DAILY . oxyCODONE-acetaminophen 5-325 MG per tablet Take 1 tablet by mouth every 6 hours as needed for Moderate Pain (Use ONLY as needed for pain) for up to 3 days. 10 tablet 0 No current facility-administered medications for this visit. Past Medical History: Diagnosis Date Anemia Anxiety Arthritis Asthma Constipation Depression Dyslipidemia Eating disorder Hyperlipidemia Hypothyroidism Insulin resistance Iron malabsorption Vitamin D deficiency Past Surgical History: Procedure Laterality Date EXCISION EXCESSIVE SKIN SQ TISSUE ABDOMEN N/A 08/13/2022 Abdominoplasty with extended skin removal, muscle plication, and umbilical transposition 3.578 lbs, 1623 gms EXCISION EXCESSIVE SKIN SQ TISSUE ABDOMEN ADD-ON PX N/A 08/13/2022 Laterality: N/A; Surgeon: Angle Pina MD; Location: [facility] OR GASTRIC BYPASS 2007 TUBAL LIGATION 2000 History reviewed. No pertinent family history. Social History Socioeconomic History Marital status: Spouse name: Not on file Number of children: Not on file Years of education: Not on file Highest education level: Not on file Occupational History Not on file Tobacco Use Smoking status: Never Smokeless tobacco: Never Vaping Use Vaping Use: Never used Substance and Sexual Activity Alcohol use: Yes Drug use: Never Sexual activity: Not on file Other Topics Concern Not on file Social History Narrative Not on file Social Determinants of Health Financial Resource Strain: Not on file Food Insecurity: Not on file Transportation Needs: Not on file Physical Activity: Not on file Stress: Not on file Social Connections: Not on file Intimate Partner Violence: Not on file Housing Stability: Not on file Review of Systems Pertinent items are noted in HPI. General Plastics Review of Systems: Do you have any of the following: Chills, Fatigue, Fever or Night Sweats: no. Ear pain or eye discharge: no. Hearing loss or visual changes: no. Sore throat or chronic cough: no. Shortness of breath: no. Chest pain, swelling, or heart palpitations: no. Abdominal pain: no. Constipation or diarrhea: no. Heartburn or Nausea: no. Rash or skin problems: no. Dizziness or numbness: no. Headaches or Migraines: no. Seizures: no. Joint pain, joint swelling or muscle weakness: no. Bruise or bleed easily: no. Any swollen lymph nodes: no. Have you used any nicotine products in the last 3 months? no. Do you use any cannabis, THC or marijuana containing products? no. Are you currently taking the medication Adipex? no. Objective: BP 110/72 Pulse 73 Temp 97.3 F (36.3 C) (Temporal) Ht 1.803 m (5' 11 ) Wt 73.9 kg (163 lb) BMI 22.73 kg/m Smoking Status Never The abdominal incisions are healing satisfactorily. There is no evidence of significant adherence of the scar. She has a satisfactory amount of Aquaphor moisturizer on the incisions. I reviewed restrictions with exercise. She can begin to exercise with the exception of poor muscle exercises. She can begin doing these in end December/beginning of January. Assessment: Status/post abdominoplasty--- satisfactory postoperative course Plan: The pt is to call with any further problems or questions, otherwise I will see them back PRN. documented in this encounter [facility] 09-14-2022 History of Presen t illness Narrative General Plastics Review of Systems: Do you have any of the following: Chills, Fatigue, Fever or Night Sweats: no. Ear pain or eye discharge: no. Hearing loss or visual changes: no. Sore throat or chronic cough: no. Shortness of breath: no. Chest pain, swelling, or heart palpitations: no. Abdominal pain: no. Constipation or diarrhea: no. Heartburn or Nausea: no. Rash or skin problems: no. Dizziness or numbness: no. Headaches or Migraines: no. Seizures: no. Joint pain, joint swelling or muscle weakness: no. Bruise or bleed easily: no. Any swollen lymph nodes: no. Have you used any nicotine products in the last 3 months? no. Do you use any cannabis, THC or marijuana containing products? no. Are you currently taking the medication Adipex? no. Subjective: Reema Ventura is an 52 y.o. female who presents for evaluation of Abdominoplasty on 08/13/22. She complains of tightness but denies pain. Allergies Allergen Reactions Cat Dander Itching Sneeze Grass [*Seasonal] Dyspnea Molds & Smuts Rash Codeine Other reaction(s): Unknown Current Outpatient Medications Medication Sig Dispense Refill atorvastatin 10 MG tablet Take 10 mg by mouth daily. am Cetirizine HCl (ZYRTEC PO) Take by mouth daily. [employer] Purelax 17 GM/SCOOP Powder powder as needed. FLUoxetine 10 MG capsule Take 10 mg by mouth daily. fluticasone 50 MCG/ACT Suspension nasal spray 1 spray by Does Not Apply route daily. levothyroxine 112 MCG tablet Take 112 mcg by mouth. Tuesday, Tuesday, Tuesday; am levothyroxine 125 MCG tablet Take 125 mcg by mouth. Tuesday, , Tuesday, Tuesday; am Senexon-S 8.6-50 MG per tablet TAKE 2 (TWO) TABLETS BY MOUTH DAILY . oxyCODONE-acetaminophen 5-325 MG per tablet Take 1 tablet by mouth every 6 hours as needed for Moderate Pain (Use ONLY as needed for pain) for up to 3 days. 10 tablet 0 No current facility-administered medications for this visit. Past Medical History: Diagnosis Date Anemia Anxiety Arthritis Asthma Constipation Depression Dyslipidemia Eating disorder Hyperlipidemia Hypothyroidism Insulin resistance Iron malabsorption Vitamin D deficiency Past Surgical History: Procedure Laterality Date EXCISION EXCESSIVE SKIN SQ TISSUE ABDOMEN N/A 08/13/2022 Abdominoplasty with extended skin removal, muscle plication, and umbilical transposition 3.578 lbs, 1623 gms EXCISION EXCESSIVE SKIN SQ TISSUE ABDOMEN ADD-ON PX N/A 08/13/2022 Laterality: N/A; Surgeon: Angle Pina MD; Location: [facility] 2007 TUBAL LIGATION 2000 History reviewed. No pertinent family history. Social History Socioeconomic History Marital status: Spouse name: Not on file Number of children: Not on file Years of education: Not on file Highest education level: Not on file Occupational History Not on file Tobacco Use Smoking status: Never Smokeless tobacco: Never Vaping Use Vaping Use: Never used Substance and Sexual Activity Alcohol use: Yes Drug use: Never Sexual activity: Not on file Other Topics Concern Not on file Social History Narrative Not on file Social Determinants of Health Financial Resource Strain: Not on file Food Insecurity: Not on file Transportation Needs: Not on file Physical Activity: Not on file Stress: Not on file Social Connections: Not on file Intimate Partner Violence: Not on file Housing Stability: Not on file Review of Systems Pertinent items are noted in HPI. General Plastics Review of Systems: Do you have any of the following: Chills, Fatigue, Fever or Night Sweats: no. Ear pain or eye discharge: no. Hearing loss or visual changes: no. Sore throat or chronic cough: no. Shortness of breath: no. Chest pain, swelling, or heart palpitations: no. Abdominal pain: no. Constipation or diarrhea: no. Heartburn or Nausea: no. Rash or skin problems: no. Dizziness or numbness: no. Headaches or Migraines: no. Seizures: no. Joint pain, joint swelling or muscle weakness: no. Bruise or bleed easily: no. Any swollen lymph nodes: no. Have you used any nicotine products in the last 3 months? no. Do you use any cannabis, THC or marijuana containing products? no. Are you currently taking the medication Adipex? no. Objective: BP 121/76 Pulse 82 Temp 97.4 F (36.3 C) (Temporal) Ht 1.803 m (5' 11 ) Wt 74.4 kg (164 lb) BMI 22.87 kg/m Smoking Status Never Incision of the lower abdomen is well approximated. There is no evidence of infection. I showed her how to massage the incision with gentle pressure. We discussed when she did go back to work and I suggested a total of 6 weeks from the time of her surgery. Assessment: Status post abdominoplasty with satisfactory postoperative course Plan: Pt to RETURN in 1 month FOR RECHECK. They are encouraged to call in the interim with any problems or questions relating to this encounter. documented in this encounter [facility] 09-01-2022 History of Presen t illness Narrative General Plastics Review of Systems: Do you have any of the following: Chills, Fatigue, Fever or Night Sweats: no. Ear pain or eye discharge: no. Hearing loss or visual changes: no. Sore throat or chronic cough: no. Shortness of breath: no. Chest pain, swelling, or heart palpitations: no. Abdominal pain: no. Constipation or diarrhea: no. Heartburn or Nausea: no. Rash or skin problems: no. Dizziness or numbness: no. Headaches or Migraines: no. Seizures: no. Joint pain, joint swelling or muscle weakness: no. Bruise or bleed easily: no. Any swollen lymph nodes: no. Have you used any nicotine products in the last 3 months? no. Do you use any cannabis, THC or marijuana containing products? no. Are you currently taking the medication Adipex? no. Subjective: Reema Ventura is an 52 y.o. female who presents for evaluation of Abdominoplasty. She denies any problems.. Allergies Allergen Reactions Cat Dander Itching Sneeze Grass [*Seasonal] Dyspnea Molds & Smuts Rash Codeine Other reaction(s): Unknown Current Outpatient Medications Medication Sig Dispense Refill atorvastatin 10 MG tablet Take 10 mg by mouth daily. am Cetirizine HCl (ZYRTEC PO) Take by mouth daily. [facility] Purelax 17 GM/SCOOP Powder powder as needed. FLUoxetine 10 MG capsule Take 10 mg by mouth daily. fluticasone 50 MCG/ACT Suspension nasal spray 1 spray by Does Not Apply route daily. levothyroxine 112 MCG tablet Take 112 mcg by mouth. Tuesday, Tuesday, Tuesday; am levothyroxine 125 MCG tablet Take 125 mcg by mouth. Tuesday, , Tuesday, Tuesday; am Senexon-S 8.6-50 MG per tablet TAKE 2 (TWO) TABLETS BY MOUTH DAILY . oxyCODONE-acetaminophen 5-325 MG per tablet Take 1 tablet by mouth every 6 hours as needed for Moderate Pain (Use ONLY as needed for pain) for up to 3 days. 10 tablet 0 No current facility-administered medications for this visit. Past Medical History: Diagnosis Date Anemia Anxiety Arthritis Asthma Constipation Depression Dyslipidemia Eating disorder Hyperlipidemia Hypothyroidism Insulin resistance Iron malabsorption Vitamin D deficiency Past Surgical History: Procedure Laterality Date EXCISION EXCESSIVE SKIN SQ TISSUE ABDOMEN N/A 08/13/2022 Abdominoplasty with extended skin removal, muscle plication, and umbilical transposition 3.578 lbs, 1623 gms EXCISION EXCESSIVE SKIN SQ TISSUE ABDOMEN ADD-ON PX N/A 08/13/2022 Laterality: N/A; Surgeon: Angle Pina MD; Location: [facility] 2007 TUBAL LIGATION 2000 History reviewed. No pertinent family history. Social History Socioeconomic History Marital status: Spouse name: Not on file Number of children: Not on file Years of education: Not on file Highest education level: Not on file Occupational History Not on file Tobacco Use Smoking status: Never Smokeless tobacco: Never Vaping Use Vaping Use: Never used Substance and Sexual Activity Alcohol use: Yes Drug use: Never Sexual activity: Not on file Other Topics Concern Not on file Social History Narrative Not on file Social Determinants of Health Financial Resource Strain: Not on file Food Insecurity: Not on file Transportation Needs: Not on file Physical Activity: Not on file Stress: Not on file Social Connections: Not on file Intimate Partner Violence: Not on file Housing Stability: Not on file Review of Systems Pertinent items are noted in HPI. General Plastics Review of Systems: Do you have any of the following: Chills, Fatigue, Fever or Night Sweats: no. Ear pain or eye discharge: no. Hearing loss or visual changes: no. Sore throat or chronic cough: no. Shortness of breath: no. Chest pain, swelling, or heart palpitations: no. Abdominal pain: no. Constipation or diarrhea: no. Heartburn or Nausea: no. Rash or skin problems: no. Dizziness or numbness: no. Headaches or Migraines: no. Seizures: no. Joint pain, joint swelling or muscle weakness: no. Bruise or bleed easily: no. Any swollen lymph nodes: no. Have you used any nicotine products in the last 3 months? no. Do you use any cannabis, THC or marijuana containing products? no. Are you currently taking the medication Adipex? no. Objective: BP 120/76 Pulse 72 Temp 97.5 F (36.4 C) (Temporal) Ht 1.803 m (5' 11 ) Wt 76.7 kg (169 lb) BMI 23.57 kg/m Smoking Status Never Incision is well approximated. There is no overt seroma palpable areas At this point, she can switch to her spanx garment instead of the binder. I discussed that we will begin massaging the incision after her next visit. Assessment: Status post abdominoplasty--satisfactory postoperative course Plan: Pt to RETURN in 2 weeks FOR RECHECK. They are encouraged to call in the interim with any problems or questions relating to this encounter. documented in this encounter [facility] 08-25-2022 History of Presen t illness Narrative General Plastics Review of Systems: Do you have any of the following: Chills, Fatigue, Fever or Night Sweats: no. Ear pain or eye discharge: no. Hearing loss or visual changes: no. Sore throat or chronic cough: no. Shortness of breath: no. Chest pain, swelling, or heart palpitations: no. Abdominal pain: no. Constipation or diarrhea: no. Heartburn or Nausea: no. Rash or skin problems: no. Dizziness or numbness: no. Headaches or Migraines: no. Seizures: no. Joint pain, joint swelling or muscle weakness: no. Bruise or bleed easily: no. Any swollen lymph nodes: no. Have you used any nicotine products in the last 3 months? no. Do you use any cannabis, THC or marijuana containing products? no. Are you currently taking the medication Adipex? no. Subjective: Reema Ventura is an 52 y.o. female who presents for evaluation of Abdominoplasty on 08/13/22. She denies any pain or discomfort. Drains intact. Binder worn at all times. Allergies Allergen Reactions Cat Dander Itching Sneeze Grass [*Seasonal] Dyspnea Molds & Smuts Rash Codeine Other reaction(s): Unknown Current Outpatient Medications Medication Sig Dispense Refill atorvastatin 10 MG tablet Take 10 mg by mouth daily. am Cetirizine HCl (ZYRTEC PO) Take by mouth daily. [facility] Purelax 17 GM/SCOOP Powder powder as needed. FLUoxetine 10 MG capsule Take 10 mg by mouth daily. fluticasone 50 MCG/ACT Suspension nasal spray 1 spray by Does Not Apply route daily. levothyroxine 112 MCG tablet Take 112 mcg by mouth. Tuesday, Tuesday, Tuesday; am levothyroxine 125 MCG tablet Take 125 mcg by mouth. Tuesday, , Tuesday, Tuesday; am Senexon-S 8.6-50 MG per tablet TAKE 2 (TWO) TABLETS BY MOUTH DAILY . oxyCODONE-acetaminophen 5-325 MG per tablet Take 1 tablet by mouth every 6 hours as needed for Moderate Pain (Use ONLY as needed for pain) for up to 3 days. 10 tablet 0 No current facility-administered medications for this visit. Past Medical History: Diagnosis Date Anemia Anxiety Arthritis Asthma Constipation Depression Dyslipidemia Eating disorder Hyperlipidemia Hypothyroidism Insulin resistance Iron malabsorption Vitamin D deficiency Past Surgical History: Procedure Laterality Date EXCISION EXCESSIVE SKIN SQ TISSUE ABDOMEN N/A 08/13/2022 Abdominoplasty with extended skin removal, muscle plication, and umbilical transposition 3.578 lbs, 1623 gms EXCISION EXCESSIVE SKIN SQ TISSUE ABDOMEN ADD-ON PX N/A 08/13/2022 Laterality: N/A; Surgeon: Angle Pina MD; Location: [facility] 2006 TUBAL LIGATION 2000 History reviewed. No pertinent family history. Social History Socioeconomic History Marital status: Spouse name: Not on file Number of children: Not on file Years of education: Not on file Highest education level: Not on file Occupational History Not on file Tobacco Use Smoking status: Never Smokeless tobacco: Never Vaping Use Vaping Use: Never used Substance and Sexual Activity Alcohol use: Yes Drug use: Never Sexual activity: Not on file Other Topics Concern Not on file Social History Narrative Not on file Social Determinants of Health Financial Resource Strain: Not on file Food Insecurity: Not on file Transportation Needs: Not on file Physical Activity: Not on file Stress: Not on file Social Connections: Not on file Intimate Partner Violence: Not on file Housing Stability: Not on file Review of Systems Pertinent items are noted in HPI. General Plastics Review of Systems: Do you have any of the following: Chills, Fatigue, Fever or Night Sweats: no. Ear pain or eye discharge: no. Hearing loss or visual changes: no. Sore throat or chronic cough: no. Shortness of breath: no. Chest pain, swelling, or heart palpitations: no. Abdominal pain: no. Constipation or diarrhea: no. Heartburn or Nausea: no. Rash or skin problems: no. Dizziness or numbness: no. Headaches or Migraines: no. Seizures: no. Joint pain, joint swelling or muscle weakness: no. Bruise or bleed easily: no. Any swollen lymph nodes: no. Have you used any nicotine products in the last 3 months? no. Do you use any cannabis, THC or marijuana containing products? no. Are you currently taking the medication Adipex? no. Objective: BP 110/74 Pulse 93 Temp 99.4 F (37.4 C) (Temporal) Ht 1.803 m (5' 11 ) Wt 75.3 kg (166 lb) BMI 23.15 kg/m Smoking Status Never Abdominal incision is intact. She still having approximately 20 mL per WENCESLAO per 24 hours. The drainage is serous. I asked her to reduce her activity as this may be perpetuating the drainage. Periumbilical sutures are removed. Incision was redressed with Xeroform and ABDs. She is placed back in her binder. She is 2 weeks from her surgery so she can begin to shower, I will see her back in 1 weeks Assessment: Status post abdominoplasty Plan: Pt to RETURN in 1 week FOR RECHECK. They are encouraged to call in the interim with any problems or questions relating to this encounter. documented in this encounter [facility] 08-18-2022 History of Presen t illness Narrative General Plastics Review of Systems: Do you have any of the following: Chills, Fatigue, Fever or Night Sweats: no. Ear pain or eye discharge: no. Hearing loss or visual changes: no. Sore throat or chronic cough: no. Shortness of breath: no. Chest pain, swelling, or heart palpitations: no. Abdominal pain: no. Constipation or diarrhea: no. Heartburn or Nausea: no. Rash or skin problems: no. Dizziness or numbness: no. Headaches or Migraines: no. Seizures: no. Joint pain, joint swelling or muscle weakness: no. Bruise or bleed easily: no. Any swollen lymph nodes: no. Have you used any nicotine products in the last 3 months? no. Do you use any cannabis, THC or marijuana containing products? no. Are you currently taking the medication Adipex? no. Subjective: Reema Ventura is an 52 y.o. female who presents for evaluation of Abdominoplasty on 08/13/22. She states she is still a little sore especially when getting up and down but she has been up walking and it helps. Drain intact. Allergies Allergen Reactions Cat Dander Itching Sneeze Grass [*Seasonal] Dyspnea Molds & Smuts Rash Codeine Other reaction(s): Unknown Current Outpatient Medications Medication Sig Dispense Refill atorvastatin 10 MG tablet Take 10 mg by mouth daily. am Cetirizine HCl (ZYRTEC PO) Take by mouth daily. [facility] Purelax 17 GM/SCOOP Powder powder as needed. FLUoxetine 10 MG capsule Take 10 mg by mouth daily. fluticasone 50 MCG/ACT Suspension nasal spray 1 spray by Does Not Apply route daily. levothyroxine 112 MCG tablet Take 112 mcg by mouth. Tuesday, Tuesday, Tuesday; am levothyroxine 125 MCG tablet Take 125 mcg by mouth. Tuesday, , Tuesday, Tuesday; am oxyCODONE-acetaminophen 5-325 MG per tablet Take 1 tablet by mouth every 6 hours as needed for Moderate Pain (Use ONLY as needed for pain) for up to 3 days. 10 tablet 0 Senexon-S 8.6-50 MG per tablet TAKE 2 (TWO) TABLETS BY MOUTH DAILY . No current facility-administered medications for this visit. Past Medical History: Diagnosis Date Anemia Anxiety Arthritis Asthma Constipation Depression Dyslipidemia Eating disorder Hyperlipidemia Hypothyroidism Insulin resistance Iron malabsorption Vitamin D deficiency Past Surgical History: Procedure Laterality Date EXCISION EXCESSIVE SKIN SQ TISSUE ABDOMEN N/A 08/13/2022 Laterality: N/A; Surgeon: Angle Pina MD; Location: [facility] EXCISION EXCESSIVE SKIN SQ TISSUE ABDOMEN ADD-ON PX N/A 08/13/2022 Laterality: N/A; Surgeon: Angle Pina MD; Location: [facility] 2007 TUBAL LIGATION 2001 History reviewed. No pertinent family history. Social History Socioeconomic History Marital status: Spouse name: Not on file Number of children: Not on file Years of education: Not on file Highest education level: Not on file Occupational History Not on file Tobacco Use Smoking status: Never Smokeless tobacco: Never Vaping Use Vaping Use: Never used Substance and Sexual Activity Alcohol use: Yes Drug use: Never Sexual activity: Not on file Other Topics Concern Not on file Social History Narrative Not on file Social Determinants of Health Financial Resource Strain: Not on file Food Insecurity: Not on file Transportation Needs: Not on file Physical Activity: Not on file Stress: Not on file Social Connections: Not on file Intimate Partner Violence: Not on file Housing Stability: Not on file Review of Systems Pertinent items are noted in HPI. General Plastics Review of Systems: Do you have any of the following: Chills, Fatigue, Fever or Night Sweats: no. Ear pain or eye discharge: no. Hearing loss or visual changes: no. Sore throat or chronic cough: no. Shortness of breath: no. Chest pain, swelling, or heart palpitations: no. Abdominal pain: no. Constipation or diarrhea: no. Heartburn or Nausea: no. Rash or skin problems: no. Dizziness or numbness: no. Headaches or Migraines: no. Seizures: no. Joint pain, joint swelling or muscle weakness: no. Bruise or bleed easily: no. Any swollen lymph nodes: no. Have you used any nicotine products in the last 3 months? no. Do you use any cannabis, THC or marijuana containing products? no. Are you currently taking the medication Adipex? no. Objective: BP 119/75 Pulse 85 Temp 97.2 F (36.2 C) (Temporal) Ht 1.803 m (5' 11 ) Wt 76.2 kg (168 lb) BMI 23.43 kg/m Smoking Status Never The dressing was changed. Incision is intact. There is no evidence of infection. WENCESLAO drains have serous bloody drainage. The drains were stripped in the patient shown how to do the same. Restrictions were again reviewed with her. Assessment: Satisfactory postoperative course Plan: Pt to RETURN in One week FOR RECHECK. They are encouraged to call in the interim with any problems or questions relating to this encounter. documented in this encounter [facility] 07-27-2022 History of Presen t illness Narrative General Plastics Review of Systems: Do you have any of the following: Chills, Fatigue, Fever or Night Sweats: no. Ear pain or eye discharge: no. Hearing loss or visual changes: no. Sore throat or chronic cough: no. Shortness of breath: no. Chest pain, swelling, or heart palpitations: no. Abdominal pain: no. Constipation or diarrhea: no. Heartburn or Nausea: no. Rash or skin problems: no. Dizziness or numbness: no. Headaches or Migraines: no. Seizures: no. Joint pain, joint swelling or muscle weakness: no. Bruise or bleed easily: no. Any swollen lymph nodes: no. Have you used any nicotine products in the last 3 months? no. Do you use any cannabis, THC or marijuana containing products? no. Are you currently taking the medication Adipex? no. Subjective: Reema Ventura is an 52 y.o. female who presents for preoperative preparation for Abdominoplasty on 08/13/22. Pre and post op instructions reviewed and signed. Allergies Allergen Reactions Cat Dander Itching Sneeze Grass [*Seasonal] Dyspnea Molds & Smuts Rash Codeine Other reaction(s): Unknown Current Outpatient Medications Medication Sig Dispense Refill atorvastatin 10 MG tablet Take 10 mg by mouth daily. am Cetirizine HCl (ZYRTEC PO) Take by mouth daily. [facility] Purelax 17 GM/SCOOP Powder powder as needed. FLUoxetine 10 MG capsule Take 10 mg by mouth daily. fluticasone 50 MCG/ACT Suspension nasal spray 1 spray by Does Not Apply route daily. levothyroxine 112 MCG tablet Take 112 mcg by mouth. Tuesday, Tuesday, Tuesday; am levothyroxine 125 MCG tablet Take 125 mcg by mouth. Tuesday, , Tuesday, Tuesday; am Semaglutide-Weight Management (Wegovy) 2.4 MG/0.75ML Solution Auto-injector Inject 1 Dose under the skin every 7 days. 2.4mg; Tuesdays Senexon-S 8.6-50 MG per tablet TAKE 2 (TWO) TABLETS BY MOUTH DAILY . cephALEXin 500 MG capsule Take 1 capsule by mouth 2 times daily for 7 days. 14 capsule 0 oxyCODONE-acetaminophen 5-325 MG per tablet Take 1 tablet by mouth every 6 hours as needed for Moderate Pain (Use ONLY as needed for pain) for up to 3 days. 10 tablet 0 No current facility-administered medications for this visit. Past Medical History: Diagnosis Date Anemia Anxiety Arthritis Asthma Constipation Depression Dyslipidemia Eating disorder Hyperlipidemia Hypothyroidism Insulin resistance Iron malabsorption Vitamin D deficiency Past Surgical History: Procedure Laterality Date GASTRIC BYPASS 2007 TUBAL LIGATION 2000 History reviewed. No pertinent family history. Social History Socioeconomic History Marital status: Spouse name: Not on file Number of children: Not on file Years of education: Not on file Highest education level: Not on file Occupational History Not on file Tobacco Use Smoking status: Never Smoker Smokeless tobacco: Never Used Vaping Use Vaping Use: Never used Substance and Sexual Activity Alcohol use: Yes Drug use: Never Sexual activity: Not on file Other Topics Concern Not on file Social History Narrative Not on file Social Determinants of Health Financial Resource Strain: Not on file Food Insecurity: Not on file Transportation Needs: Not on file Physical Activity: Not on file Stress: Not on file Social Connections: Not on file Intimate Partner Violence: Not on file Housing Stability: Not on file Review of Systems Pertinent items are noted in HPI. General Plastics Review of Systems: Do you have any of the following: Chills, Fatigue, Fever or Night Sweats: no. Ear pain or eye discharge: no. Hearing loss or visual changes: no. Sore throat or chronic cough: no. Shortness of breath: no. Chest pain, swelling, or heart palpitations: no. Abdominal pain: no. Constipation or diarrhea: no. Heartburn or Nausea: no. Rash or skin problems: no. Dizziness or numbness: no. Headaches or Migraines: no. Seizures: no. Joint pain, joint swelling or muscle weakness: no. Bruise or bleed easily: no. Any swollen lymph nodes: no. Have you used any nicotine products in the last 3 months? no. Do you use any cannabis, THC or marijuana containing products? no. Are you currently taking the medication Adipex? no. Objective: BP 114/74 Pulse 71 Temp 99.8 F (37.7 C) (Temporal) Ht 1.803 m (5' 11 ) Wt 77.1 kg (170 lb) BMI 23.71 kg/m Smoking Status Never Smoker Patient with atrophic skin of the abdomen. She has a well-healed midline lower abdominal incision. No obvious evidence of hernia. The procedure of Abdominoplasty Was thoroughly reviewed with the patient. The reasonable expected outcome was reviewed. The expected Pre-, Intra-, and Post- Operative Course was reviewed. The Pre- and Post-Operative Instructions were reviewed in addition to the medications to avoid before surgery. The patient was given the following scripts (which were also reviewed): Keflex and Percocet Measurements and Sizing were performed as applicable. The Potential Risks and Complications were reviewed as was the Consent for Surgery. The RISKS, BENEFITS, POTENTIAL COMPLICATIONS, and ALTERNATIVES OF TREATMENT were reviewed. The POTENTIAL COMPLICATIONS were reviewed which include (but are not exclusive of) bleeding, infection, pain, numbness, assymmetry, scar tissue, skin necrosis, the need for further surgery, DVT, and even . The patient was given ample opportunity to ask questions. The patient voices understanding. The patient is encouraged to call with any further questions or problems encountered before or after the proposed procedure. Assessment: Patient for abdominoplasty Plan: We will proceed with surgery in the near future. She has obtained her medical clearance. documented in this encounter [facility] 07-20-2022 History of Presen t illness Narrative General Plastics Review of Systems: Do you have any of the following: Chills, Fatigue, Fever or Night Sweats: no. Ear pain or eye discharge: no. Hearing loss or visual changes: no. Sore throat or chronic cough: no. Shortness of breath: no. Chest pain, swelling, or heart palpitations: no. Abdominal pain: no. Constipation or diarrhea: no. Heartburn or Nausea: no. Rash or skin problems: no. Dizziness or numbness: no. Headaches or Migraines: no. Seizures: no. Joint pain, joint swelling or muscle weakness: no. Bruise or bleed easily: no. Any swollen lymph nodes: no. Have you used any nicotine products in the last 3 months? no. Do you use any cannabis, THC or marijuana containing products? no. Are you currently taking the medication Adipex? no. Subjective: Reema Ventura is an 52 y.o. female who presents for evaluation of loose abdominal skin and is scheduled for abdominoplasty. She continues to lose weight on her diet regimen. Allergies Allergen Reactions Cat Dander Itching Sneeze Molds & Smuts Rash Codeine Other reaction(s): Unknown Current Outpatient Medications Medication Sig Dispense Refill atorvastatin 10 MG tablet Take 10 mg by mouth daily. [facility] Purelax 17 GM/SCOOP Powder powder TAKE 17 GRAMS DIRECTED BY MOUTH ONCE DAILY levothyroxine 112 MCG tablet Take 112 mcg by mouth every 7 days. levothyroxine 125 MCG tablet Take 125 mcg by mouth daily. Semaglutide-Weight Management (Wegovy) 2.4 MG/0.75ML Solution Auto-injector Inject 1 Dose under the skin every 7 days. Senexon-S 8.6-50 MG per tablet TAKE 2 (TWO) TABLETS BY MOUTH DAILY . No current facility-administered medications for this visit. Past Medical History: Diagnosis Date Anemia Anxiety Arthritis Asthma Constipation Depression Dyslipidemia Eating disorder Hypothyroidism Insulin resistance Iron malabsorption Vitamin D deficiency Past Surgical History: Procedure Laterality Date GASTRIC BYPASS 2007 TUBAL LIGATION 2000 History reviewed. No pertinent family history. Social History Socioeconomic History Marital status: Spouse name: Not on file Number of children: Not on file Years of education: Not on file Highest education level: Not on file Occupational History Not on file Tobacco Use Smoking status: Never Smoker Smokeless tobacco: Never Used Substance and Sexual Activity Alcohol use: Yes Drug use: Never Sexual activity: Not on file Other Topics Concern Not on file Social History Narrative Not on file Social Determinants of Health Financial Resource Strain: Not on file Food Insecurity: Not on file Transportation Needs: Not on file Physical Activity: Not on file Stress: Not on file Social Connections: Not on file Intimate Partner Violence: Not on file Housing Stability: Not on file Review of Systems Pertinent items are noted in HPI. General Plastics Review of Systems: Do you have any of the following: Chills, Fatigue, Fever or Night Sweats: no. Ear pain or eye discharge: no. Hearing loss or visual changes: no. Sore throat or chronic cough: no. Shortness of breath: no. Chest pain, swelling, or heart palpitations: no. Abdominal pain: no. Constipation or diarrhea: no. Heartburn or Nausea: no. Rash or skin problems: no. Dizziness or numbness: no. Headaches or Migraines: no. Seizures: no. Joint pain, joint swelling or muscle weakness: no. Bruise or bleed easily: no. Any swollen lymph nodes: no. Have you used any nicotine products in the last 3 months? no. Do you use any cannabis, THC or marijuana containing products? no. Are you currently taking the medication Adipex? no. Objective: BP 124/75 Pulse 68 Temp 97.3 F (36.3 C) (Temporal) Ht 1.803 m (5' 11 ) Wt 78.5 kg (173 lb) BMI 24.13 kg/m Smoking Status Never Smoker Patient with atrophic skin of her abdomen. There is no palpable hernias. She has a scar below her umbilicus from her tubal ligation. The procedure of Abdominoplasty was thoroughly reviewed with the patient. The patient's goals and expectation for the surgery were reviewed, as well as the reasonable expected outcome. The expected pre-, intra-, and post- operative course was reviewed. The pt was given copies of Pre- and Post-Operative Instructions to review as well as a Consent specific to their procedure if available. The need for medical clearance was also reviewed with them. Assessment: Patient is scheduled for abdominoplasty next month Plan: She is to obtain her clearance and I will see her back for further preoperative preparation documented in this encounter [facility] 06-23-2022 Telephone encount er Note Insurance covers for a 90 day supply. Requested Prescriptions Pending Prescriptions Disp Refills semaglutide, weight loss, (Wegovy) 2.4 mg/0.75 mL Pen 9 mL 2 Sig: Inject 0.75 mL (2.4 mg total) under the skin every 7 days . [facility] 06-23-2022 Miscellaneous Notes Formattin g of this note is different from the original. Insurance covers for a 90 day supply. Requested Prescriptions Pending Prescriptions Disp Refills semaglutide, weight loss, (Wegovy) 2.4 mg/0.75 mL Pen 9 mL 2 Sig: Inject 0.75 mL (2.4 mg total) under the skin every 7 days . documented in this encounter [facility] 06-07-2022 Instructions Kvng Gonzalez MD - 06/07/2022 11:04 AM EDT Images from the original note were not included. Need bcaa mix with at least 2.5g to 4g leucine per serving Take within one hour of finishing workout documented in this encounter [facility] 06-07-2022 History of Presen t illness Narrative Diet: What do you usually have to eat for the following meals: Breakfast protein shake or yogurt Lunch salad with chicken Dinner chicken, veggie Number of snacks per day: protein shake, carrots & ranch Frequency of skipping meals per day if any: 0 If you are tracking; how many calories are you getting and how many grams of protein and carbohydrate are getting a day? What do you usually drink? Protein shake, water Do you drink alcohol? What type? Beer Wine Hard liquor Mixed Drinks How many drinks per week? Maybe 2/month Physical Activity What are you currently doing as activity or exercise? Cross fit, lifting weights, electric bike How many times per week? Most days How long at each session? 25 miles or 1 hour Any limitations you are currently having affecting your activity or exercise? Appetite: Is your appetite well controlled at this time? Yes Energy levels: Are your energy levels fairly good at this time? Yes Quality of Sleep: Are you sleeping well at this time? Yes How many hours of sleep per night? Do you feel rested when you wake up in the morning? Yes or No Do you have sleep apnea and if you do are you currently treated? Yes or No Level of Stress: What is the level of stress in your life currently?- scale 1 to 10, 10 being the most stressed. 4 How is your general mood? good Medications: If you are currently taking any medication for your weight, are you having any problems with them? No issues Chief Complaint Patient presents with Obesity Weight Loss MI'KMAQ: Pt who is a Body mass index is 24.38 kg/m . BP (!) 141/90 Pulse 74 Ht 5' 11 (1.803 m) Wt 79.3 kg (174 lb 12.8 oz) LMP 07/03/2018 (Approximate) SpO2 96% BMI 24.38 kg/m Patient's history of diet, exercise, sleep, stress and appetite control reviewed and confirmed with patient, please see the medical office manager's note. Patient here today for recheck through the [place] [facility]. Patient denies any increase in cravings or hunger. Energy levels are good. Sleep is excellent. Patient is able to adhere to the diet and exercise protocols as ordered. Medications were reviewed today and no problems noted. Stress levels are reasonably managed. For the rest of the review of systems and exam see the EMR. Problem List Items Addressed This Visit Digestive Iron malabsorption Endocrine Roland's thyroiditis Relevant Orders TSH (Completed) T4, Free (Completed) T3 (Completed) Other S/P bariatric surgery Anxiety Relevant Medications FLUoxetine (PROZAC) 10 MG capsule Other Visit Diagnoses Atypical eating disorder - Primary Relevant Medications FLUoxetine (PROZAC) 10 MG capsule Insulin resistance Dyslipidemia BMI 24.0-24.9, adult Overweight (BMI 25.0-29.9) Relevant Medications semaglutide, weight loss, (Wegovy) 2.4 mg/0.75 mL Pen Plan: Work on macronutrient targets in her diet regular exercise within the limits orthopedics. Continue wegovy for set point physiology. Prozac for reward eating behavior and mood. Work on muscle acquisition and strengthening recheck 12 weeks. This note was partially created using voice recognition software and is inherently subject to errors including those of syntax and sound-alike substitutions which may escape proofreading. In such instances, original meaning may be extrapolated by contextual derivation Medications reviewed with patient. The following portions of the patient's history were reviewed and updated as appropriate: allergies, current medications, past family history, past medical history, past social history, past surgical history and problem list . Review of Systems Constitutional: Negative for activity change, appetite change, fatigue and unexpected weight change. Respiratory: Negative for chest tightness, shortness of breath and wheezing. Cardiovascular: Negative for chest pain, palpitations and leg swelling. Gastrointestinal: Negative for constipation and diarrhea. Musculoskeletal: Negative for arthralgias, joint swelling and myalgias. Neurological: Negative for dizziness, light-headedness, numbness and headaches. Psychiatric/Behavioral: Negative for agitation, behavioral problems, decreased concentration, dysphoric mood and sleep disturbance. The patient is not nervous/anxious and is not hyperactive. Past Medical History: Diagnosis Date Arthritis Asthma Depression Disease of thyroid gland Lumbar back pain Social History Socioeconomic History Marital status: Single Tobacco Use Smoking status: Never Smokeless tobacco: Never Tobacco comments: 12-23-2021 Vaping Use Vaping Use: Never used Substance and Sexual Activity Alcohol use: Yes Comment: beer/ once a month Drug use: No Sexual activity: Not Currently Partners: Male Current Outpatient Medications Medication Sig Dispense Refill atorvastatin (LIPITOR) 10 MG tablet Take 1 (one) tablet (10 mg total) by mouth daily . 90 tablet 3 cetirizine (ZyrTEC) 10 MG tablet Take 1 tablet (10 mg total) by mouth daily. 30 tablet 11 folic acid (FOLVITE) 1 MG tablet Take 1,000 mcg by mouth daily . levothyroxine (SYNTHROID, LEVOTHROID) 112 MCG tablet Take 1 (one) tablet (112 mcg total) by mouth once a week . 4 tablet 3 levothyroxine (SYNTHROID, LEVOTHROID) 125 MCG tablet Take 1 (one) tablet (125 mcg total) by mouth every morning For 6 days a week and then 112mcg one day a week . 30 tablet 2 senna-docusate (SENNA-S) 8.6-50 mg Take 2 (two) tablets by mouth daily . 60 tablet 5 ferrous fumarate-folic acid 324 mg (106 mg iron)-1 mg Tab Take 1 tablet by mouth Daily With Food Take with 500mg of vitamin c . (Patient not taking: Reported on 04/07/2022 .) 30 tablet 1 FLUoxetine (PROZAC) 10 MG capsule Take 1 (one) capsule (10 mg total) by mouth daily . 30 capsule 5 melatonin 3 mg Tab Take 3 mg by mouth as needed. semaglutide, weight loss, (Wegovy) 2.4 mg/0.75 mL Pen Inject 0.75 mL (2.4 mg total) under the skin every 7 days . 3 mL 2 No current facility-administered medications for this visit. BP (!) 141/90 Pulse 74 Ht 5' 11 (1.803 m) Wt 79.3 kg (174 lb 12.8 oz) LMP 07/03/2018 (Approximate) SpO2 96% BMI 24.38 kg/m Physical Exam Vitals and nursing note reviewed. Constitutional: General: She is not in acute distress. Appearance: She is well-developed. She is not ill-appearing. Cardiovascular: Rate and Rhythm: Normal rate and regular rhythm. Heart sounds: Normal heart sounds, S1 normal and S2 normal. No S3 or S4 sounds. Pulmonary: Effort: Pulmonary effort is normal. No accessory muscle usage, respiratory distress or retractions. Breath sounds: Normal breath sounds. No wheezing, rhonchi or rales. Neurological: Mental Status: She is alert and oriented to person, place, and time. Psychiatric: Speech: Speech normal. Behavior: Behavior normal. Behavior is cooperative. Thought Content: Thought content normal. Judgment: Judgment normal. Problem List Items Addressed This Visit Digestive Iron malabsorption Endocrine Roland's thyroiditis Relevant Orders TSH (Completed) T4, Free (Completed) T3 (Completed) Other S/P bariatric surgery Anxiety Relevant Medications FLUoxetine (PROZAC) 10 MG capsule Other Visit Diagnoses Atypical eating disorder - Primary Relevant Medications FLUoxetine (PROZAC) 10 MG capsule Insulin resistance Dyslipidemia BMI 24.0-24.9, adult Overweight (BMI 25.0-29.9) Relevant Medications semaglutide, weight loss, (Wegovy) 2.4 mg/0.75 mL Pen Continue the currently prescribed calorie load and composition. Return in about 3 months (around 09/07/2022) for Recheck. Counseling Time: minutes more than 50% of the time face to face discussing findings and coordinating care regarding medication management and education for disease processes and treatment protocol. documented in this encounter [facility] 04-27-2022 History of Presen t illness Narrative General Plastics Review of Systems: Do you have any of the following: Chills, Fatigue, Fever or Night Sweats: no. Ear pain or eye discharge: no. Hearing loss or visual changes: no. Sore throat or chronic cough: no. Shortness of breath: no. Chest pain, swelling, or heart palpitations: no. Abdominal pain: no. Constipation or diarrhea: yes Heartburn or Nausea: no. Rash or skin problems: no. Dizziness or numbness: no. Headaches or Migraines: no. Seizures: no. Joint pain, joint swelling or muscle weakness: no. Bruise or bleed easily: no. Any swollen lymph nodes: no. Have you used any nicotine products in the last 3 months? no. Do you use any cannabis, THC or marijuana containing products? no. Are you currently taking the medication Adipex? no. Subjective: Reema Ventura is an 52 y.o. female who presents for evaluation to discuss a panniculectomy. She had gastric bypass in 2006. She denies any rashes under her abdominal fold area but can break out a little bit here and there. Allergies Allergen Reactions Cat Dander Itching Sneeze Molds & Smuts Rash Codeine Other reaction(s): Unknown Current Outpatient Medications Medication Sig Dispense Refill atorvastatin 10 MG tablet Take 10 mg by mouth daily. [facility] Purelax 17 GM/SCOOP Powder powder TAKE 17 GRAMS DIRECTED BY MOUTH ONCE DAILY levothyroxine 112 MCG tablet Take 112 mcg by mouth every 7 days. levothyroxine 125 MCG tablet Take 125 mcg by mouth daily. Semaglutide-Weight Management (Wegovy) 2.4 MG/0.75ML Solution Auto-injector Inject 1 Dose under the skin every 7 days. Senexon-S 8.6-50 MG per tablet TAKE 2 (TWO) TABLETS BY MOUTH DAILY . No current facility-administered medications for this visit. Past Medical History: Diagnosis Date Anemia Anxiety Arthritis Asthma Constipation Depression Dyslipidemia Eating disorder Hypothyroidism Insulin resistance Iron malabsorption Vitamin D deficiency Past Surgical History: Procedure Laterality Date GASTRIC BYPASS 2006 TUBAL LIGATION 2000 History reviewed. No pertinent family history. Social History Socioeconomic History Marital status: Spouse name: Not on file Number of children: Not on file Years of education: Not on file Highest education level: Not on file Occupational History Not on file Tobacco Use Smoking status: Never Smoker Smokeless tobacco: Never Used Substance and Sexual Activity Alcohol use: Yes Drug use: Never Sexual activity: Not on file Other Topics Concern Not on file Social History Narrative Not on file Social Determinants of Health Financial Resource Strain: Not on file Food Insecurity: Not on file Transportation Needs: Not on file Physical Activity: Not on file Stress: Not on file Social Connections: Not on file Intimate Partner Violence: Not on file Housing Stability: Not on file Review of Systems Pertinent items are noted in HPI. General Plastics Review of Systems: Do you have any of the following: Chills, Fatigue, Fever or Night Sweats: no. Ear pain or eye discharge: no. Hearing loss or visual changes: no. Sore throat or chronic cough: no. Shortness of breath: no. Chest pain, swelling, or heart palpitations: no. Abdominal pain: no. Constipation or diarrhea: yes Heartburn or Nausea: no. Rash or skin problems: no. Dizziness or numbness: no. Headaches or Migraines: no. Seizures: no. Joint pain, joint swelling or muscle weakness: no. Bruise or bleed easily: no. Any swollen lymph nodes: no. Have you used any nicotine products in the last 3 months? no. Do you use any cannabis, THC or marijuana containing products? no. Are you currently taking the medication Adipex? no. Objective: BP 102/73 Pulse 85 Temp 97.2 F (36.2 C) (Temporal) Ht 1.803 m (5' 11 ) Wt 81.6 kg (180 lb) BMI 25.10 kg/m Smoking Status Never Smoker Patient with a moderate panniculus of the lower abdomen. The underlying tissue was moist. She has evidence of solar damaged skin. The procedure of panniculectomy was thoroughly reviewed with the patient. The patient's goals and expectation for the surgery were reviewed, as well as the reasonable expected outcome. The expected pre-, intra-, and post- operative course was reviewed. I spent 25 minutes total time with the patient. Assessment: Patient for consideration of panniculectomy Plan: Pt to Obtain Further Documentation to Support the Need for the Proposed Procedure. We will then submit all the obtained info to the insurance company to obtain pre-authorization. documented in this encounter [facility] 04-12-2022 History of Presen t illness Narrative Chief Complaint Patient presents with Obesity Weight Loss Patient Start time: Stop time: Pt who is a Body mass index is 24.83 kg/m . Ht 5' 11 (1.803 m) Wt 80.7 kg (178 lb) LMP 07/03/2018 (Approximate) BMI 24.83 kg/m Patient's history of diet, exercise, sleep, stress and appetite control reviewed and confirmed with patient, please see the medical office manager's note. This is a telemedicine encounter. This visit has been fully reviewed with the patient and verbal consent has been obtained. MI'KMAQ: Patient here today for recheck through the [place] [facility]. Patient denies any increase in cravings or hunger. Energy levels are good. Sleep is excellent. Patient is able to adhere to the diet and exercise protocols as ordered. Medications were reviewed today and no problems noted. Stress levels are reasonably managed. For the rest of the review of systems and exam see the EMR. She has noticed a little increase in anxiety and agitation over the last month. ASSESSMENT: 1. Atypical eating disorder 2. Insulin resistance 3. Dyslipidemia 4. Iron malabsorption 5. S/P bariatric surgery 6. Constipation, unspecified constipation type senna-docusate (SENNA-S) 8.6-50 mg 7. Anxiety FLUoxetine (PROZAC) 10 MG capsule 8. Vitamin D deficiency Vitamin D, Total, 25-OH 9. BMI 24.0-24.9, adult Plan: Work on macronutrient targets in her diet regular exercise within the limits orthopedics will take her wegovy up to the maintenance dose. To help with set point and improved stability to her weight. We will continue the senna S for constipation. Tendencies. When to wean off the Wellbutrin was were afraid that is causing her agitation and anxiety escalation. She is afraid to be without anything for moods so we will try trial of Prozac to see if that is workable she has failed multiple other meds including Lexapro Celexa Wellbutrin and Zoloft in the past. Follow vitamin d levels, iron is to goal. Make her next visit live to get a body composition done. Have her work on muscle acquisition at the gym recheck 8 wks. This note was partially created using voice recognition software and is inherently subject to errors including those of syntax and sound-alike substitutions which may escape proofreading. In such instances, original meaning may be extrapolated by contextual derivation Medications reviewed with patient. The following portions of the patient's history were reviewed and updated as appropriate: allergies, current medications, past family history, past medical history, past social history, past surgical history and problem list . Review of Systems Constitutional: Positive for activity change. Negative for appetite change, fatigue and unexpected weight change. Respiratory: Negative for chest tightness, shortness of breath and wheezing. Cardiovascular: Negative for chest pain, palpitations and leg swelling. Gastrointestinal: Negative for constipation and diarrhea. Musculoskeletal: Negative for arthralgias, joint swelling and myalgias. Neurological: Negative for dizziness, light-headedness, numbness and headaches. Psychiatric/Behavioral: Positive for agitation. Negative for behavioral problems, decreased concentration, dysphoric mood and sleep disturbance. The patient is nervous/anxious. The patient is not hyperactive. Physical Exam Vitals and nursing note reviewed. Constitutional: General: She is not in acute distress. Appearance: She is well-developed. Neurological: Mental Status: She is alert and oriented to person, place, and time. Past Medical History: Diagnosis Date Arthritis Asthma Depression Disease of thyroid gland Lumbar back pain Social History Socioeconomic History Marital status: Single Tobacco Use Smoking status: Never Smokeless tobacco: Never Tobacco comments: 12-23-2021 Vaping Use Vaping Use: Never used Substance and Sexual Activity Alcohol use: Yes Comment: beer/ once a month Drug use: No Sexual activity: Not Currently Partners: Male Current Outpatient Medications Medication Sig Dispense Refill atorvastatin (LIPITOR) 10 MG tablet Take 1 (one) tablet (10 mg total) by mouth daily . 90 tablet 3 cetirizine (ZyrTEC) 10 MG tablet Take 1 tablet (10 mg total) by mouth daily. 30 tablet 11 ferrous fumarate-folic acid 324 mg (106 mg iron)-1 mg Tab Take 1 tablet by mouth Daily With Food Take with 500mg of vitamin c . (Patient not taking: Reported on 04/07/2022 .) 30 tablet 1 FLUoxetine (PROZAC) 10 MG capsule Take 1 (one) capsule (10 mg total) by mouth daily . 30 capsule 1 folic acid (FOLVITE) 1 MG tablet Take 1,000 mcg by mouth daily . levothyroxine (SYNTHROID, LEVOTHROID) 112 MCG tablet Take 1 (one) tablet (112 mcg total) by mouth once a week . 4 tablet 3 levothyroxine (SYNTHROID, LEVOTHROID) 125 MCG tablet Take 1 (one) tablet (125 mcg total) by mouth every morning For 6 days a week and then 112mcg one day a week . 30 tablet 2 melatonin 3 mg Tab Take 3 mg by mouth as needed. semaglutide, weight loss, (Wegovy) 2.4 mg/0.75 mL Pen Inject 0.75 mL (2.4 mg total) under the skin every 7 days . 3 mL 1 senna-docusate (SENNA-S) 8.6-50 mg Take 2 (two) tablets by mouth daily . 60 tablet 5 No current facility-administered medications for this visit. Problem List Items Addressed This Visit Digestive Iron malabsorption Other S/P bariatric surgery Vitamin D deficiency Relevant Orders Vitamin D, Total, 25-OH Anxiety Relevant Medications FLUoxetine (PROZAC) 10 MG capsule Other Visit Diagnoses Atypical eating disorder - Primary Relevant Medications FLUoxetine (PROZAC) 10 MG capsule Insulin resistance Dyslipidemia Constipation, unspecified constipation type Relevant Medications senna-docusate (SENNA-S) 8.6-50 mg BMI 24.0-24.9, adult Continue the currently prescribed calorie load and composition. Return in about 2 months (around 06/13/2022) for live with body comp. Counseling Time: minutes more than 50% of the time face to face discussing findings and coordinating care regarding medication management and education for disease processes and treatment protocol. Provider Location: [facility] [address] [facility] [id number] Patient Location: [address] [place] [id number] [facility] [address] [facility] [id number] Virtual Visit [facility] 04/13/22 Kvng Gonzalez MD Provider Location: Patient Location Medical Secretary: None Patient Location: home Patient: Reema Ventura Date of : 1970 (52 y.o. female) PCP: Ana M Osorio CNP I instructed patient to contact me promptly with additional concerns. Virtual Visit Consent Statement: I discussed risks, benefits and alternatives of telemedicine consultation with the patient (and any accompanying persons) including the risks that the patient s personal health details and medical records will be discussed over interactive video/audio/telecommunication technology, may be recorded, and that there are inherent diagnostic limitations compared to [id number] evaluations. They elected to proceed with the telemedicine consultation. Breakfast oatmeal and fruit, morning snack protein drink. Lunch salad with chicken afternoon snack carrots and celery dinner grilled chicken, a vegetable. Drinking 64 oz a day in water I have been walking 3-4 miles 3 times a week or more, I haven t been to the gym in several weeks just haven t felt like it. documented in this encounter [facility] 03-08-2022 History of Presen t illness Narrative My breakfast is usually egg bites and fresh fruit, Protein shake for my morning snack, lunch is grilled chicken and veggies, afternoon snack carrots or beef jerky, dinner -chicken or steak , veggies . I have been walking 3-4 miles a day. I haven t worked out in 3 weeks due to not having a lot of energy. I did have my first iron infusions last Tuesday and I feel great. I went to [place] for 3 days and I didn t get tired, and I walked over 35,000 steps a day . Chief Complaint Patient presents with Obesity Weight Loss Patient Start time: Stop time: Pt who is a Body mass index is 26.08 kg/m . Ht 5' 11 (1.803 m) Wt 84.8 kg (187 lb) LMP 07/03/2018 (Approximate) BMI 26.08 kg/m Patient's history of diet, exercise, sleep, stress and appetite control reviewed and confirmed with patient, please see the medical office manager's note. This is a telemedicine encounter. This visit has been fully reviewed with the patient and verbal consent has been obtained. MI'KMAQ: Patient here today for recheck through the [facility]. Patient denies any increase in cravings or hunger. Energy levels are good. Sleep is excellent. Patient is able to adhere to the diet and exercise protocols as ordered. Medications were reviewed today and no problems noted. Stress levels are reasonably managed. For the rest of the review of systems and exam see the EMR. States the iron infusions it helped quite a bit. Unfortunately she recently went to [place] to visit her son and contracted COVID so she is currently on quarantine. ASSESSMENT: 1. Atypical eating disorder buPROPion (WELLBUTRIN) 75 MG tablet 2. Insulin resistance 3. Dyslipidemia semaglutide, weight loss, (Wegovy) 1.7 mg/0.75 mL Pen 4. Iron malabsorption 5. S/P bariatric surgery 6. Roland's thyroiditis levothyroxine (SYNTHROID, LEVOTHROID) 125 MCG tablet levothyroxine (SYNTHROID, LEVOTHROID) 112 MCG tablet 7. Overweight (BMI 25.0-29.9) semaglutide, weight loss, (Wegovy) 1.7 mg/0.75 mL Pen 8. BMI 26.0-26.9,adult Plan: Work on macronutrient targets in her diet regular exercise within the limits of orthopedics when she clears quarantine. We will continue her thyroid the current dosing she is on the high end of the normal range so I think is reasonable continue that. We will continue her iron infusions until they are finished the full course we will continue Wellbutrin the current dosing. We will get a stabilizer wegovy at this dose for now given her COVID is if she develops GI side effects and will be clear if it is due to the COVID infection or the change in wegovy dosing. We will proceed from there we will reassess here in the office in 4 weeks and see how she is doing sooner if she is worse. This note was partially created using voice recognition software and is inherently subject to errors including those of syntax and sound-alike substitutions which may escape proofreading. In such instances, original meaning may be extrapolated by contextual derivation Medications reviewed with patient. The following portions of the patient's history were reviewed and updated as appropriate: allergies, current medications, past family history, past medical history, past social history, past surgical history and problem list . Review of Systems Constitutional: Negative for activity change, appetite change, fatigue and unexpected weight change. Respiratory: Negative for chest tightness, shortness of breath and wheezing. Cardiovascular: Negative for chest pain, palpitations and leg swelling. Gastrointestinal: Negative for constipation and diarrhea. Musculoskeletal: Negative for arthralgias, joint swelling and myalgias. Neurological: Negative for dizziness, light-headedness, numbness and headaches. Psychiatric/Behavioral: Negative for agitation, behavioral problems, decreased concentration, dysphoric mood and sleep disturbance. The patient is not nervous/anxious and is not hyperactive. Physical Exam Vitals and nursing note reviewed. Constitutional: General: She is not in acute distress. Appearance: She is well-developed. Neurological: Mental Status: She is alert and oriented to person, place, and time. Past Medical History: Diagnosis Date Arthritis Asthma Depression Disease of thyroid gland Lumbar back pain Social History Socioeconomic History Marital status: Single Tobacco Use Smoking status: Never Smokeless tobacco: Never Tobacco comments: 12-23-2021 Vaping Use Vaping Use: Never used Substance and Sexual Activity Alcohol use: Yes Comment: beer/ once a month Drug use: No Sexual activity: Not Currently Partners: Male Current Outpatient Medications Medication Sig Dispense Refill atorvastatin (LIPITOR) 10 MG tablet Take 1 (one) tablet (10 mg total) by mouth daily . 90 tablet 3 buPROPion (WELLBUTRIN) 75 MG tablet Take 1 (one) tablet (75 mg total) by mouth 2 (two) times a day Start with one in am and one in the afternoon . 60 tablet 1 cetirizine (ZyrTEC) 10 MG tablet Take 1 tablet (10 mg total) by mouth daily. 30 tablet 11 ferrous fumarate-folic acid 324 mg (106 mg iron)-1 mg Tab Take 1 tablet by mouth Daily With Food Take with 500mg of vitamin c . (Patient not taking: Reported on 03/01/2022 .) 30 tablet 1 folic acid (FOLVITE) 1 MG tablet Take 1,000 mcg by mouth daily . levothyroxine (SYNTHROID, LEVOTHROID) 112 MCG tablet Take 1 (one) tablet (112 mcg total) by mouth once a week . 4 tablet 3 levothyroxine (SYNTHROID, LEVOTHROID) 125 MCG tablet Take 1 (one) tablet (125 mcg total) by mouth every morning For 6 days a week and then 112mcg one day a week . 30 tablet 2 melatonin 3 mg Tab Take 3 mg by mouth as needed. semaglutide, weight loss, (Wegovy) 1.7 mg/0.75 mL Pen Inject 0.75 mL (1.7 mg total) under the skin every 7 days . 3 mL 0 senna-docusate (SENNA-S) 8.6-50 mg Take 2 (two) tablets by mouth daily . (Patient not taking: Reported on 03/01/2022 .) 60 tablet 1 senna-docusate (SENNA-S) 8.6-50 mg Take 1 (one) tablet by mouth daily . 30 tablet 2 No current facility-administered medications for this visit. Problem List Items Addressed This Visit Digestive Iron malabsorption Endocrine Roland's thyroiditis Relevant Medications levothyroxine (SYNTHROID, LEVOTHROID) 125 MCG tablet levothyroxine (SYNTHROID, LEVOTHROID) 112 MCG tablet Other S/P bariatric surgery Other Visit Diagnoses Atypical eating disorder - Primary Relevant Medications buPROPion (WELLBUTRIN) 75 MG tablet Insulin resistance Dyslipidemia Relevant Medications semaglutide, weight loss, (Wegovy) 1.7 mg/0.75 mL Pen Overweight (BMI 25.0-29.9) Relevant Medications semaglutide, weight loss, (Wegovy) 1.7 mg/0.75 mL Pen BMI 26.0-26.9,adult Continue the currently prescribed calorie load and composition. No follow-ups on file. Counseling Time: minutes more than 50% of the time face to face discussing findings and coordinating care regarding medication management and education for disease processes and treatment protocol. Provider Location: [facility] [address] [facility] [id number] Patient Location: [address] [place] [id number] [facility] [address] [facility] [id number] Virtual Visit [facility] 03/08/22 Kvng Gonzalez MD Provider Location: Patient Location Medical Secretary: None Patient Location: home Patient: Reema Ventura Date of : 1970 (52 y.o. female) PCP: Ana M Osorio CNP I instructed patient to contact me promptly with additional concerns. Virtual Visit Consent Statement: I discussed risks, benefits and alternatives of telemedicine consultation with the patient (and any accompanying persons) including the risks that the patient s personal health details and medical records will be discussed over interactive video/audio/telecommunication technology, may be recorded, and that there are inherent diagnostic limitations compared to [id number] evaluations. They elected to proceed with the telemedicine consultation. documented in this encounter [facility] 03-01-2022 History of Presen t illness Narrative Patient denies any issues or side effects during wait period after treatment completion. documented in this encounter [facility] 02-12-2022 Telephone encount er Note Pharmacy did not receive prescription Requested Prescriptions Pending Prescriptions Disp Refills ferrous fumarate-folic acid 324 mg (106 mg iron)-1 mg Tab 30 tablet 1 Sig: Take 1 tablet by mouth Daily With Food Take with 500mg of vitamin c . [facility] 02-12-2022 Miscellaneous Notes Formattin g of this note is different from the original. Pharmacy did not receive prescription Requested Prescriptions Pending Prescriptions Disp Refills ferrous fumarate-folic acid 324 mg (106 mg iron)-1 mg Tab 30 tablet 1 Sig: Take 1 tablet by mouth Daily With Food Take with 500mg of vitamin c . documented in this encounter [facility] 02-03-2022 History of Presen t illness Narrative Diet: What do you usually have to eat for the following meals: Breakfast omelette, toast, banana Lunch turkey & cheese with 1 slice of bread Dinner steak, green beans Number of snacks per day: 2- protein shake, apple, skinny cow ice cream Frequency of skipping meals per day if any: 0 If you are tracking; how many calories are you getting and how many grams of protein and carbohydrate are getting a day? 1400 kcals What do you usually drink? Water,crystal light Do you drink alcohol? No Physical Activity What are you currently doing as activity or exercise? Swimming, weights How many times per week? 5-6 How long at each session? About 60 mins Any limitations you are currently having affecting your activity or exercise? Appetite: Is your appetite well controlled at this time? Yes or No Energy levels: Are your energy levels fairly good at this time? Kind of tired - related to thyroid medication change?? Quality of Sleep: Are you sleeping well at this time? Yes or No How many hours of sleep per night? Do you feel rested when you wake up in the morning? Yes or No Do you have sleep apnea and if you do are you currently treated? Meet with sleep doc next week Level of Stress: What is the level of stress in your life currently?- scale 1 to 10, 10 being the most stressed. 4 How is your general mood? Good with meds Medications: If you are currently taking any medication for your weight, are you having any problems with them? Yes or No issues Most recent weight: 195 Most recent Blood Pressure: Chief Complaint Patient presents with Obesity Weight Loss Patient Start time: Stop time: Pt who is a Body mass index is 27.2 kg/m . Ht 5' 11 (1.803 m) Wt 88.5 kg (195 lb) Comment: per pt LMP 07/03/2018 (Approximate) BMI 27.20 kg/m Patient's history of diet, exercise, sleep, stress and appetite control reviewed and confirmed with patient, please see the medical office manager's note. This is a telemedicine encounter. This visit has been fully reviewed with the patient and verbal consent has been obtained. MI'KMAQ: Patient here today for recheck through the [place] [facility] [facility]. Patient denies any increase in cravings or hunger. Energy levels are poor. Sleep is not to goal. Sticking to the diet but having trouble with the exercise protocols due to fatigue. Medications were reviewed today. Stress levels are fair. For the rest of the review of systems and exam see the EMR. ASSESSMENT: 1. Atypical eating disorder buPROPion (WELLBUTRIN) 75 MG tablet 2. Insulin resistance 3. Dyslipidemia semaglutide, weight loss, (Wegovy) 1.7 mg/0.75 mL Pen 4. Iron malabsorption 5. S/P bariatric surgery 6. Constipation, unspecified constipation type 7. Roland's thyroiditis levothyroxine (SYNTHROID, LEVOTHROID) 125 MCG tablet levothyroxine (SYNTHROID, LEVOTHROID) 112 MCG tablet T4, Free T3 TSH 8. Iron deficiency ferrous fumarate-folic acid 324 mg (106 mg iron)-1 mg Tab senna-docusate (SENNA-S) 8.6-50 mg CBC Iron and TIBC Ferritin Occult Blood Stool Immunoassay (Send Out) 9. Anemia, unspecified type 10. Intestinal malabsorption, unspecified type Vitamin D, Total, 25-OH Tissue Transglutaminase, IgA Celiac Associated HLA_DQ Typing 11. BMI 27.0-27.9,adult 12. Overweight (BMI 25.0-29.9) semaglutide, weight loss, (Wegovy) 1.7 mg/0.75 mL Pen Plan: Reviewed lab findings with her here today she has a fairly substantial iron deficiency and bordering on recurrent anemia. We will try to add some oral supplementation more than likely she is not going to absorb it given the fact that she has a iron malabsorption related to her gastric bypass. We will try to submit for IV iron as she failed liquid oral iron before.To stabilize levels. We adjust her thyroid replacement down a notch. We will continue to escalate wegovy for set point physiology. As tolerated we will check stools for blood. As well as screening for celiac disease given the iron deficiency to rule out other causes recheck here in the office in 4 weeks sooner if needed. This note was partially created using voice recognition software and is inherently subject to errors including those of syntax and sound-alike substitutions which may escape proofreading. In such instances, original meaning may be extrapolated by contextual derivation Medications reviewed with patient. The following portions of the patient's history were reviewed and updated as appropriate: allergies, current medications, past family history, past medical history, past social history, past surgical history and problem list . Review of Systems Constitutional: Positive for fatigue. Negative for activity change, appetite change and unexpected weight change. Respiratory: Negative for chest tightness, shortness of breath and wheezing. Cardiovascular: Negative for chest pain, palpitations and leg swelling. Gastrointestinal: Negative for constipation and diarrhea. Musculoskeletal: Negative for arthralgias, joint swelling and myalgias. Neurological: Negative for dizziness, light-headedness, numbness and headaches. Psychiatric/Behavioral: Negative for agitation, behavioral problems, decreased concentration, dysphoric mood and sleep disturbance. The patient is not nervous/anxious and is not hyperactive. Physical Exam Vitals and nursing note reviewed. Constitutional: General: She is not in acute distress. Appearance: She is well-developed. Neurological: Mental Status: She is alert and oriented to person, place, and time. Past Medical History: Diagnosis Date Arthritis Asthma Depression Disease of thyroid gland Lumbar back pain Social History Socioeconomic History Marital status: Single Tobacco Use Smoking status: Never Smoker Smokeless tobacco: Never Used Tobacco comment: 12-23-2021 Vaping Use Vaping Use: Never used Substance and Sexual Activity Alcohol use: Yes Comment: beer/ once a month Drug use: No Sexual activity: Not Currently Partners: Male Current Outpatient Medications Medication Sig Dispense Refill atorvastatin (LIPITOR) 10 MG tablet Take 1 (one) tablet (10 mg total) by mouth daily . 90 tablet 3 buPROPion (WELLBUTRIN) 75 MG tablet Take 1 (one) tablet (75 mg total) by mouth 2 (two) times a day Start with one in am and one in the afternoon . 60 tablet 1 cetirizine (ZyrTEC) 10 MG tablet Take 1 tablet (10 mg total) by mouth daily. 30 tablet 11 ferrous fumarate-folic acid 324 mg (106 mg iron)-1 mg Tab Take 1 tablet by mouth Daily With Food Take with 500mg of vitamin c . 30 tablet 1 levothyroxine (SYNTHROID, LEVOTHROID) 112 MCG tablet Take 1 (one) tablet (112 mcg total) by mouth once a week . 4 tablet 1 levothyroxine (SYNTHROID, LEVOTHROID) 125 MCG tablet Take 1 (one) tablet (125 mcg total) by mouth every morning For 6 days a week and then 112mcg one day a week . 30 tablet 1 melatonin 3 mg Tab Take 3 mg by mouth as needed. semaglutide, weight loss, (Wegovy) 1 mg/0.5 mL Pen Inject 0.5 mL (1 mg total) under the skin every 7 days . 2 mL 0 semaglutide, weight loss, (Wegovy) 1.7 mg/0.75 mL Pen Inject 0.75 mL (1.7 mg total) under the skin every 7 days . 3 mL 0 senna-docusate (SENNA-S) 8.6-50 mg Take 2 (two) tablets by mouth daily . 60 tablet 1 senna-docusate (SENNA-S) 8.6-50 mg Take 1 (one) tablet by mouth daily . 30 tablet 2 No current facility-administered medications for this visit. Problem List Items Addressed This Visit Digestive Iron malabsorption Endocrine Roland's thyroiditis Relevant Medications levothyroxine (SYNTHROID, LEVOTHROID) 125 MCG tablet levothyroxine (SYNTHROID, LEVOTHROID) 112 MCG tablet Other Relevant Orders T4, Free T3 TSH Other S/P bariatric surgery Iron deficiency Relevant Medications ferrous fumarate-folic acid 324 mg (106 mg iron)-1 mg Tab senna-docusate (SENNA-S) 8.6-50 mg Other Relevant Orders CBC Iron and TIBC Ferritin Occult Blood Stool Immunoassay (Send Out) Anemia Relevant Medications ferrous fumarate-folic acid 324 mg (106 mg iron)-1 mg Tab Other Visit Diagnoses Atypical eating disorder - Primary Relevant Medications buPROPion (WELLBUTRIN) 75 MG tablet Insulin resistance Dyslipidemia Relevant Medications semaglutide, weight loss, (Wegovy) 1.7 mg/0.75 mL Pen Constipation, unspecified constipation type Intestinal malabsorption, unspecified type Relevant Orders Vitamin D, Total, 25-OH Tissue Transglutaminase, IgA Celiac Associated HLA_DQ Typing BMI 27.0-27.9,adult Overweight (BMI 25.0-29.9) Relevant Medications semaglutide, weight loss, (Wegovy) 1.7 mg/0.75 mL Pen Continue the currently prescribed calorie load and composition. Return in about 4 weeks (around 2022) for Recheck. Counseling Time: minutes more than 50% of the time face to face discussing findings and coordinating care regarding medication management and education for disease processes and treatment protocol. Provider Location: [facility] [address] [facility] [id number] Patient Location: [address] [place] [id number] [facility] [address] [facility] [address] Virtual Visit [facility] 02/03/22 Kvng Gonzalez MD Provider Location: Patient Location Medical Secretary: None Patient Location: home Patient: Reema Ventura Date of : 1970 (51 y.o. female) PCP: Ana M Osorio CNP I instructed patient to contact me promptly with additional concerns. Virtual Visit Consent Statement: I discussed risks, benefits and alternatives of telemedicine consultation with the patient (and any accompanying persons) including the risks that the patient s personal health details and medical records will be discussed over interactive video/audio/telecommunication technology, may be recorded, and that there are inherent diagnostic limitations compared to [id number] evaluations. They elected to proceed with the telemedicine consultation. documented in this encounter [facility] 02-01-2022 Telephone encount er Note RECEIVED FAX FROM PHARMACY. REQUESTING REFILL ON ATORVASTATIN. LAST OV 09/14/21. NO FUTURE VISITS SCHEDULED AT THIS TIME. LAST LIPID PANEL 08/17/21. [facility] 02-01-2022 Miscellaneous Notes Formattin g of this note might be different from the original. RECEIVED FAX FROM PHARMACY. REQUESTING REFILL ON ATORVASTATIN. LAST OV 09/14/21. NO FUTURE VISITS SCHEDULED AT THIS TIME. LAST LIPID PANEL 08/17/21. documented in this encounter [facility] 01-25-2022 Telephone encount er Note Patient called to request a refill on wegovy. Her next appointment is 02/03/2022 and she is due for another injection this . She took her last injection last and was requesting a refill so she can stay on her weekly scheduled injections. I called patient back and left a detailed message on her personal voice mail that a new script was sent to her [facility] pharmacy on 01/19/2022. Advised patient to call her pharmacy to see if they have it ready for her to rock picker. If there are any questions or concerns asked patient to call us back. [facility] 01-25-2022 Miscellaneous Notes Formattin g of this note might be different from the original. Patient called to request a refill on wegovy. Her next appointment is 02/03/2022 and she is due for another injection this . She took her last injection last and was requesting a refill so she can stay on her weekly scheduled injections. I called patient back and left a detailed message on her personal voice mail that a new script was sent to her [facility] pharmacy on 01/19/2022. Advised patient to call her pharmacy to see if they have it ready for her to rock picker. If there are any questions or concerns asked patient to call us back. documented in this encounter [facility] 01-22-2022 Telephone encount er Note VIJAYA: 12/30: 02/03 Patient is okay to go to the next dose. Requested Prescriptions Pending Prescriptions Disp Refills semaglutide, weight loss, (Wegovy) 1.7 mg/0.75 mL Pen 3 mL 0 Sig: Inject 0.75 mL (1.7 mg total) under the skin every 7 days . [facility] 01-22-2022 Miscellaneous Notes Formattin g of this note is different from the original. VIJAYA: 12/30: 02/03 Patient is okay to go to the next dose. Requested Prescriptions Pending Prescriptions Disp Refills semaglutide, weight loss, (Wegovy) 1.7 mg/0.75 mL Pen 3 mL 0 Sig: Inject 0.75 mL (1.7 mg total) under the skin every 7 days . documented in this encounter [facility] 12-30-2021 History of Presen t illness Narrative Breakfast Oatmeal with berries lunch salad protein shake for afternoon snack Dinner grilled chicken and veggies. Sleep is okay, I saw a sleep doctor last week , I am doing a sleep study ( waiting on approval from my insurance). Medication s Wellbutrin 75 mg, cholesterol meds, vitamin d, . Not currently taking the liquid iron as it upsets my stomach. I would like to look into Wagovy I am exercising 5 days a week, HIIT cardio class 3 days a week at 6:00 am -6:45 am, Tuesday 5 am weight lifting 30 minutes, 5:45am Lap Swim 30 minutes. Weight is 202 blood pressure not sure. Chief Complaint Patient presents with Obesity Weight Loss Patient Start time: Stop time: Pt who is a Body mass index is 28.17 kg/m . Ht 5' 11 (1.803 m) Wt 91.6 kg (202 lb) Comment: per pt LMP 07/03/2018 (Approximate) BMI 28.17 kg/m Patient's history of diet, exercise, sleep, stress and appetite control reviewed and confirmed with patient, please see the medical office manager's note. This is a telemedicine encounter. This visit has been fully reviewed with the patient and verbal consent has been obtained. MI'KMAQ: Patient here today for recheck through the [facility] [facility]. Patient denies any increase in cravings or hunger. Energy levels are good. Sleep is excellent. Patient is able to adhere to the diet and exercise protocols as ordered. Medications were reviewed today and no problems noted. Stress levels are reasonably managed. For the rest of the review of systems and exam see the EMR. However weight loss has been slow. ASSESSMENT: 1. Atypical eating disorder 2. Insulin resistance semaglutide, weight loss, (Wegovy) 0.25 mg/0.5 mL Pen 3. Dyslipidemia 4. Iron deficiency 5. Constipation, unspecified constipation type senna-docusate (SENNA-S) 8.6-50 mg 6. Overweight (BMI 25.0-29.9) semaglutide, weight loss, (Wegovy) 0.25 mg/0.5 mL Pen 7. BMI 28.0-28.9,adult 8. Roland's thyroiditis levothyroxine (SYNTHROID, LEVOTHROID) 125 MCG tablet 9. Vitamin D deficiency ergocalciferol (ERGOCALCIFEROL) 1,250 mcg (50,000 unit) capsule Vitamin D, Total, 25-OH Plan: Patient struggling with set point physiology. We will start wegovy for the set point component. Supplement D thyroid replacements. Discontinue her iron due to GI upset accelerated her bowel regimen for constipation.Recheck here in the office in 4 weeks and see how she is progressing sooner if she is worse. This note was partially created using voice recognition software and is inherently subject to errors including those of syntax and sound-alike substitutions which may escape proofreading. In such instances, original meaning may be extrapolated by contextual derivation Medications reviewed with patient. The following portions of the patient's history were reviewed and updated as appropriate: allergies, current medications, past family history, past medical history, past social history, past surgical history and problem list . Review of Systems Constitutional: Negative for activity change, appetite change, fatigue and unexpected weight change. Respiratory: Negative for chest tightness, shortness of breath and wheezing. Cardiovascular: Negative for chest pain, palpitations and leg swelling. Gastrointestinal: Positive for constipation. Negative for diarrhea. Musculoskeletal: Negative for arthralgias, joint swelling and myalgias. Neurological: Negative for dizziness, light-headedness, numbness and headaches. Psychiatric/Behavioral: Negative for agitation, behavioral problems, decreased concentration, dysphoric mood and sleep disturbance. The patient is not nervous/anxious and is not hyperactive. Physical Exam Vitals and nursing note reviewed. Constitutional: General: She is not in acute distress. Appearance: She is well-developed. Neurological: Mental Status: She is alert and oriented to person, place, and time. Past Medical History: Diagnosis Date Arthritis Asthma Depression Disease of thyroid gland Lumbar back pain Social History Socioeconomic History Marital status: Single Tobacco Use Smoking status: Never Smoker Smokeless tobacco: Never Used Tobacco comment: 12-23-2021 Vaping Use Vaping Use: Never used Substance and Sexual Activity Alcohol use: Yes Comment: beer/ once a month Drug use: No Sexual activity: Not Currently Partners: Male Social Determinants of Health Food Insecurity: No Food Insecurity Worried About Running Out of Food in the Last Year: Never true Ran Out of Food in the Last Year: Never true Social Connections: Unknown Frequency of Social Gatherings with Friends and Family: Twice a week Current Outpatient Medications Medication Sig Dispense Refill atorvastatin (LIPITOR) 10 MG tablet Take 1 (one) tablet (10 mg total) by mouth daily . 30 tablet 11 buPROPion (WELLBUTRIN) 75 MG tablet Take 1 (one) tablet (75 mg total) by mouth 2 (two) times a day Start with one in am and one in the afternoon . 60 tablet 1 cetirizine (ZyrTEC) 10 MG tablet Take 1 tablet (10 mg total) by mouth daily. 30 tablet 11 citalopram (CELEXA) 20 MG tablet Take 0.5 (one-half) tablet (10 mg total) by mouth daily . 90 tablet 3 ergocalciferol (ERGOCALCIFEROL) 1,250 mcg (50,000 unit) capsule Take 1 (one) capsule (50,000 Units total) by mouth once a week . 13 capsule 1 escitalopram oxalate (LEXAPRO) 5 MG tablet Take 1 (one) tablet (5 mg total) by mouth nightly . 30 tablet 1 levothyroxine (SYNTHROID, LEVOTHROID) 125 MCG tablet Take 1 (one) tablet (125 mcg total) by mouth every morning . 30 tablet 1 melatonin 3 mg Tab Take 3 mg by mouth as needed. polyethylene glycol (MIRALAX) 17 gram powder Take 17 (seventeen) g by mouth daily . 30 packet 1 semaglutide, weight loss, (Wegovy) 0.25 mg/0.5 mL Pen Inject 0.5 mL (0.25 mg total) under the skin every 7 days Reasons: weight loss management for overweight person with bmi 27 to 29 and weight-related comorbidity, insulin resistance and dyslipidemia. 2 mL 0 senna-docusate (SENNA-S) 8.6-50 mg Take 2 (two) tablets by mouth daily . 60 tablet 1 No current facility-administered medications for this visit. Problem List Items Addressed This Visit Endocrine Roland's thyroiditis Relevant Medications levothyroxine (SYNTHROID, LEVOTHROID) 125 MCG tablet Other Vitamin D deficiency Relevant Medications ergocalciferol (ERGOCALCIFEROL) 1,250 mcg (50,000 unit) capsule Other Relevant Orders Vitamin D, Total, 25-OH Iron deficiency Other Visit Diagnoses Atypical eating disorder - Primary Insulin resistance Relevant Medications semaglutide, weight loss, (Wegovy) 0.25 mg/0.5 mL Pen Dyslipidemia Constipation, unspecified constipation type Relevant Medications senna-docusate (SENNA-S) 8.6-50 mg Overweight (BMI 25.0-29.9) Relevant Medications semaglutide, weight loss, (Wegovy) 0.25 mg/0.5 mL Pen BMI 28.0-28.9,adult Continue the currently prescribed calorie load and composition. Return in about 4 weeks (around 01/27/2022) for Recheck. Counseling Time: minutes more than 50% of the time face to face discussing findings and coordinating care regarding medication management and education for disease processes and treatment protocol. Provider Location: [facility] [address] [address] Patient Location: [address] [place], [place] [id number] [facility] [address] [facility] [id number] Virtual Visit [facility] 12/30/21 Kvng Gonzalez MD Provider Location: Patient Location Medical Secretary: None Patient Location: home Patient: Reema Ventura Date of : 1970 (51 y.o. female) PCP: Ana M Osorio CNP I instructed patient to contact me promptly with additional concerns. Virtual Visit Consent Statement: I discussed risks, benefits and alternatives of telemedicine consultation with the patient (and any accompanying persons) including the risks that the patient s personal health details and medical records will be discussed over interactive video/audio/telecommunication technology, may be recorded, and that there are inherent diagnostic limitations compared to [id number] evaluations. They elected to proceed with the telemedicine consultation. documented in this encounter [facility] 11-27-2021 History of Presen t illness Narrative Breakfast 1/2 oatmilk will oat milk, fernando seeds milled, blueberries Lunch. Protein shake fitlife coffee 30 grams protein cheese stick Dinner chicken breast 4 oz broccoli cauliflower rice Snack. Ecuadorean Yogurt blueberries, cheese stick or popcorn No skipping meals. I drink 50 to 80 oz of water a day I feel like my energy has declined since I started taking it. I feel like I am more agitated at times and I have a headache in the morning after taking the Wellbutrin. I have had a hard time sleeping the last 2 weeks . I do have a appointment December 23 for a sleep study assessment . I am on topamax 25 mg. It s ok . Chief Complaint Patient presents with Obesity Weight Loss Patient Start time: Stop time: Pt who is a Body mass index is 28.31 kg/m . BP 129/81 Ht 5' 11 (1.803 m) Wt 92.1 kg (203 lb) LMP 07/03/2018 (Approximate) BMI 28.31 kg/m Patient's history of diet, exercise, sleep, stress and appetite control reviewed and confirmed with patient, please see the medical office manager's note. This is a telemedicine encounter. This visit has been fully reviewed with the patient and verbal consent has been obtained. MI'KMAQ: Patient here today for recheck through the [facility]. Patient denies any increase in cravings or hunger. Energy levels are good. Sleep is excellent. Patient is able to adhere to the diet and exercise protocols as ordered. Medications were reviewed today and no problems noted. Stress levels are reasonably managed. For the rest of the review of systems and exam see the EMR. She has noticed a little bit of headache and agitation with the Wellbutrin but for the most part is been manageable. She feels like her reward cravings are better with the current tools. ASSESSMENT: 1. Atypical eating disorder 2. Insulin resistance 3. Dyslipidemia 4. Iron deficiency ferrous sulfate 220 mg (44 mg iron)/5 mL elixir CBC Iron and TIBC Ferritin 5. S/P bariatric surgery 6. Roland's thyroiditis levothyroxine (SYNTHROID, LEVOTHROID) 125 MCG tablet TSH T4, Free 7. Sleep disorder 8. Overweight (BMI 25.0-29.9) 9. BMI 28.0-28.9,adult Plan: Work on macronutrient targets in her diet regular exercise within the limits of orthopedics. She has an upcoming sleep study will await the findings of that test. Thyroids are slightly oversupplemented we will dial back her dosage and follow her levels make sure that is getting to goal range. We will have her take her Wellbutrin with food and see if that helps a little bit with some of the headache symptomatology. If not we may need to decrease the dose. Continue Topamax for reward eating and volume controls. She is iron deficient so we will replace that with an iron elixir given she is status post bariatric surgery. I will see if the numbers improve if not we may need to consider iron infusions. Continue her other replacements at the current levels. Continue work on exercise and muscle acquisition and strengthening. Recheck in 4 weeks to make sure she still tracking in the right direction. This note was partially created using voice recognition software and is inherently subject to errors including those of syntax and sound-alike substitutions which may escape proofreading. In such instances, original meaning may be extrapolated by contextual derivation Medications reviewed with patient. The following portions of the patient's history were reviewed and updated as appropriate: allergies, current medications, past family history, past medical history, past social history, past surgical history and problem list . Review of Systems Constitutional: Positive for fatigue. Negative for activity change, appetite change and unexpected weight change. Respiratory: Negative for chest tightness, shortness of breath and wheezing. Cardiovascular: Negative for chest pain, palpitations and leg swelling. Gastrointestinal: Negative for constipation and diarrhea. Musculoskeletal: Negative for arthralgias, joint swelling and myalgias. Neurological: Negative for dizziness, light-headedness, numbness and headaches. Psychiatric/Behavioral: Negative for agitation, behavioral problems, decreased concentration, dysphoric mood and sleep disturbance. The patient is not nervous/anxious and is not hyperactive. Physical Exam Vitals and nursing note reviewed. Constitutional: General: She is not in acute distress. Appearance: She is well-developed and well-nourished. Neurological: Mental Status: She is alert and oriented to person, place, and time. Past Medical History: Diagnosis Date Arthritis Asthma Depression Disease of thyroid gland Lumbar back pain Social History Socioeconomic History Marital status: Single Tobacco Use Smoking status: Never Smoker Smokeless tobacco: Never Used Vaping Use Vaping Use: Never used Substance and Sexual Activity Alcohol use: Yes Comment: beer/ once a month Drug use: No Sexual activity: Not Currently Partners: Male Social Determinants of Health Food Insecurity: No Food Insecurity Worried About Running Out of Food in the Last Year: Never true Ran Out of Food in the Last Year: Never true Social Connections: Unknown Frequency of Social Gatherings with Friends and Family: Twice a week Current Outpatient Medications Medication Sig Dispense Refill atorvastatin (LIPITOR) 10 MG tablet Take 1 (one) tablet (10 mg total) by mouth daily . 30 tablet 11 buPROPion (WELLBUTRIN SR) 100 MG 12 hr tablet Take 1 (one) tablet (100 mg total) by mouth every morning . 30 tablet 1 cetirizine (ZyrTEC) 10 MG tablet Take 1 tablet (10 mg total) by mouth daily. (Patient not taking: Reported on 11/13/2021 .) 30 tablet 11 citalopram (CELEXA) 20 MG tablet Take 0.5 (one-half) tablet (10 mg total) by mouth daily . 90 tablet 3 ergocalciferol (ERGOCALCIFEROL) 1,250 mcg (50,000 unit) capsule Take 1 (one) capsule (50,000 Units total) by mouth once a week . 13 capsule 1 ferrous sulfate 220 mg (44 mg iron)/5 mL elixir Take 5 mL (220 mg total) by mouth daily With 500mg vitamin c . 150 mL 1 levothyroxine (SYNTHROID, LEVOTHROID) 125 MCG tablet Take 1 (one) tablet (125 mcg total) by mouth every morning . 30 tablet 1 melatonin 3 mg Tab Take 3 mg by mouth as needed. semaglutide (Ozempic) 0.25 mg or 0.5 mg(2 mg/1.5 mL) Pen Inject 0.25 (one-quarter) mg under the skin every 7 days For 2 weeks and then increase to 0.5 mg weekly. . (Patient not taking: Reported on 11/13/2021 .) 2 mL 11 topiramate (TOPAMAX) 25 MG tablet Take 1 (one) tablet (25 mg total) by mouth 2 (two) times a day One with lunch and one with dinner . 60 tablet 1 No current facility-administered medications for this visit. Problem List Items Addressed This Visit Endocrine Roland's thyroiditis Relevant Medications levothyroxine (SYNTHROID, LEVOTHROID) 125 MCG tablet Other Relevant Orders TSH T4, Free Other S/P bariatric surgery Iron deficiency Relevant Medications ferrous sulfate 220 mg (44 mg iron)/5 mL elixir Other Relevant Orders CBC Iron and TIBC Ferritin Other Visit Diagnoses Atypical eating disorder - Primary Relevant Medications citalopram (CELEXA) 20 MG tablet Insulin resistance Dyslipidemia Sleep disorder Overweight (BMI 25.0-29.9) BMI 28.0-28.9,adult Continue the currently prescribed calorie load and composition. Return in about 4 weeks (around 12/25/2021) for Recheck. Counseling Time: minutes more than 50% of the time face to face discussing findings and coordinating care regarding medication management and education for disease processes and treatment protocol. Provider Location: [facility] [address] [facility] [id number] Patient Location: [address] [place] [address] WEIGHT TREATMENT [address] [facility] [id number] Virtual Visit [facility] 11/27/21 Kvng Gonzalez MD Provider Location: Patient Location Medical Secretary: None Patient Location: home Patient: Reema Ventura Date of : 1970 (51 y.o. female) PCP: Ana M Osorio CNP I instructed patient to contact me promptly with additional concerns. Virtual Visit Consent Statement: I discussed risks, benefits and alternatives of telemedicine consultation with the patient (and any accompanying persons) including the risks that the patient s personal health details and medical records will be discussed over interactive video/audio/telecommunication technology, may be recorded, and that there are inherent diagnostic limitations compared to [id number] evaluations. They elected to proceed with the telemedicine consultation. documented in this encounter [facility] 11-13-2021 History of Presen t illness Narrative Medical Weight Management Nutrition Visit Reema Ventura is here for enrollment in Medical Weight Management Program, Rx 1200 farhat 120g protein 60g carb protein first 6 mini meal set s/p bypass Height: (P) 5' 10.98 (1.803 m) Current weight: (P) 95.8 kg (211 lb 3.2 oz) Body mass index is 29.47 kg/m (pended). BMI Classification: Overweight (25.0-29.9) Wt hx: 240 lb at time of gastric bypass 2006. Lowest wt 140 lb, now back to 211 lb. Past Medical History: Diagnosis Date Arthritis Asthma Depression Disease of thyroid gland Lumbar back pain Past Surgical History: Procedure Laterality Date ANKLE SURGERY Left 09/04/2018 Left Ankle OS Trigonum excision-Dr Meza ANKLE SURGERY Left 06/18/2019 /ZOROASTRIANISM - GASTRIC BYPASS 2007 TENDON REPAIR HAND/FINGER Left 12/19/2020 Procedure: Left index finger extensor tendon repair percutaneous pinning; Surgeon: Ananya Madrigal MD; Location: Main OR; Service: Orthopedic TONSILLECTOMY TUBAL LIGATION 2000 Subjective: Live with 20 yo daughter, (22 yo son graduated [employer] and he just started as a culinary chef at [employer].) 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 Current Diet: Breakfast oatmeal with oat milk, berries, honey, peanut butter or protein shake Premier with coffee or Body Fortress or Orgain Lunch salad with protein, or birds eye frozen veggie pasta or tuna and low fat mobley and celery or protein shake Dinner chicken breast, steak, tuna steak veggies, sometimes a starch I am trying new recipes especially for vegetables.. Number of snacks per day: worse time is in the evening. Frequency of skipping meals per day if any: not usually If you are tracking; how many calories are you getting and how many grams of protein and carbohydrate are getting a day? Yes. fitbit or myfitness pal What do you usually drink? Water-not sure how much-just got a smart water bottle [place] Spark-with an marilyn to remind to drink. , Tea, Pop, Juice, Energy Drinks, Coffee, other crystal lite Do you drink alcohol? What type? Beer Wine Hard liquor Mixed Drinks How many drinks per week? 1 a month Assessment of Diet: excessive calorie intake at times Exercise Assessment: Patient is exercising regularly now, recently joined a gym. Crossfit How many times per week? 4 How long at each session? 35-45 min Intervention: Dedra perez of [facility] Medical Weight Management Program: *Meal Plan *Adequate Water minimum 64 oz, encourage 80-100 oz. *Commercial High Protein Beverage Guidelines: minimum 20 g protein per serving, max 15 g carbs per serving. *Exercise-Prescribed by Dr Gonzalez. *Benefits of keeping a daily food/exercise diary *Weekly weigh-ins *Core Concepts Class *Weekly ZOOM-based classes-monthly fee *How psychologists help with weight management. * Adequate sleep. *Stress reduction. Weight is a complex issue - genetic, metabolic, microbiomic, environmental, behavioral and psychosocial. Nutrition Education: Personalized meal plan with 1200 farhat 120g protein 60g carb protein first 6 mini meal set s/p bypass. Food Groups-Types of foods, servings sizes of food in each food group. Sources of protein. High protein supplements Importance of protein in weight management. Discussed the variety of high protein supplement brands and flavors 25-30 grams protein may be needed at a meal to provide sufficient leucine for muscle anabolism. Eat protein at each eating occasion. For better protein absorption to divide protein intake into meals and snacks instead of having one big protein heavy meal. Importance of vegetables and different ways to prepare them. Encouraged keeping a food and exercise diary. Examples given. Nutrition Counseling: Normalize eating: How to recognize hunger and fullness, mindful eating techniques Nutrition recommendations were reviewed with patient and example meals were provided. Patient was advised to drink adequate beverages from non calorie sources in addition to meal replacement beverages. Meal Plan: 1200 calories with 120 g protein, 60 g carbs, 53 g fat -includes 2 protein supplements Per day: 8 oz meat or meat substitutes 3 carb choices (starch or fruit or milk/yogurt) 4 vegetables 4 fats 2 protein supplements Time Food List Sample Menu Breakfast 2 oz meat 1 carb choice (starch/fruit/milk) 1 fat 2 eggs or 1/2 C. cottage cheese 1 whole grain toast or 1/2-1 fruit 1 tsp margarine or 2 Tbsp avocado Snack 1 oz meat 1 veg Light string cheese carrots Lunch 2 oz meat 1 carb choice (starch/fruit/milk) 1-2 veg 1 fat 2 oz taco seasoned chicken C. corn, C black beans 2 C. raw veggies 2 Tbsp sour cream C. salsa=free Snack Protein shake Protein shake Supper 3 oz meat 1 carb choice (starch/fruit/milk) 2 veg 2 fat 3 oz lean hamburger 3 oz baked potato C. mushrooms, C. onions sauteed in water or broth 2 tsp margarine Snack Protein shake Protein shake Meal plan is 20% carbs, 40% protein and 40% fat. Or swap the evening protein shake with breakfast. Recipe ideas: Try [employer] then click special diets then low carb or special diets then freezer meals. Try [employer] then click browse recipes then click dietary needs then click low carb. Handouts Given: [facility] Medical Weight Management Handout How Psychologists Help with Weight Management Mindful Eating Food Group Lists Protein Supplement List Personal Meal Plan Goals Addressed This Visit's Progress Good Nutrition 11/13/21 Log food using [employer] pal. Drink 64 oz of water a day, starting 11/14/21. Note: Losing more than 2 pounds a week on a regular basis may cause you to lose muscle mass. Some people who have a smaller amount of weight to lose may only lose pound or less a week. A gradual weight loss of 1 to 2 pounds a week helps you lose fat, not muscle. In the early stages, you may lose more weight since it may be largely water weight. Try not to binge, but even if you slip, forgive yourself and get back to following healthy habits. Remember, it takes time to form new healthy eating habits. Monitoring/Evaluation: Patient verbalized understanding yes Barriers to learning: no Level of motivation: good Expected compliance: good Support person attended: no Follow up: prn The patient was encouraged to send a [email or web address] message with any questions or concerns. Abbi Aguirre RDN, LD, CDCES documented in this encounter [facility] 11-13-2021 History of Presen t illness Narrative Diet: What do you usually have to eat for the following meals: Breakfast, oatmeal, oat milk, berries, honey, PB, protein shake Lunch salad, birds eye, Dinner chicken breast, veggies, steak, tuna steak Number of snacks per day: worse time is in the evening. Frequency of skipping meals per day if any: not usually If you are tracking; how many calories are you getting and how many grams of protein and carbohydrate are getting a day? Yes. fitbit What do you usually drink? Water, Tea, Pop, Juice, Energy Drinks, Coffee, other crystal lite Do you drink alcohol? What type? Beer Wine Hard liquor Mixed Drinks How many drinks per week? 1 a month Physical Activity What are you currently doing as activity or exercise? Crossfit How many times per week? 4 How long at each session? 35-45 min Any limitations you are currently having affecting your activity or exercise? Appetite: Is your appetite well controlled at this time? Yes or No Energy levels: Are your energy levels fairly good at this time? Yes or No Quality of Sleep: Are you sleeping well at this time? Yes or No How many hours of sleep per night? 12+ Do you feel rested when you wake up in the morning? Yes or No Do you have sleep apnea and if you do are you currently treated? Yes or No maybe. Level of Stress: What is the level of stress in your life currently?- scale 1 to 10, 10 being the most stressed. 5 How is your general mood? Depressed? Anxious? Or OK? Medications: If you are currently taking any medication for your weight, are you having any problems with them? Yes or No Most recent weight: Most recent Blood Pressure: Chief Complaint Patient presents with Weight Gain MI'KMAQ: Patient here today for consultation through the [facility]. Patient is a 51 y.o. [1]female states she struggled with her weight since she was 23. She has had progressive weight gain since then. She tried a variety different diets including cabbage soup, Curless, meal replacements, paired foods, weight watchers without going success. She ended up having gastric bypass in 2006 at the [facility] with improvement in her weight but she just has not been able to continue to get it to move. Struggles with cravings typically before bed mostly boredom eating behavior behavior. Struggles little bit with stress eating at times. Tends to have a sweet tooth. Volume controls been fine. She exercises regularly as the gym 5 to 7 days a week working with weights treadmill and low impact on the bike. She does have a history of some left ankle surgery x2 which does limit some of the high-impact activities. From a sports history she played volleyball in high school and was a swimmer mostly I am and short distances such as 100 200 free. As struggle with depression which is reasonably well controlled currently on citalopram her current Wall Depression Inventory scoring is 2. She has some hyperlipidemia history and vitamin D deficiency. She also has a history of hypothyroidism. Sleeps pretty reasonable she wakes up tired however. She does snore she does not stop breathing she does have some restless leg symptomatology [place] Sleepiness Scale is 3. Reviewed her medications here today. Past medical family social history full review of system reviewed detail please see EMR and intake questionnaires. Impression: Weight gain multifactorial predominantly set point physiology with concomitant reward eating behavior. Status post gastric bypass for the rest the diagnoses please see list below Problem List Items Addressed This Visit Endocrine Roland's thyroiditis Relevant Orders T3 (Completed) T4, Free (Completed) TSH (Completed) Other S/P bariatric surgery Relevant Orders Ambulatory referral to Nutrition Services Vitamin D deficiency Relevant Orders Vitamin D, Total, 25-OH (Completed) Iron deficiency Relevant Orders Ferritin (Completed) Iron and TIBC (Completed) History of anemia Other Visit Diagnoses Weight gain - Primary Relevant Orders CBC and Differential (Completed) Comprehensive Metabolic Panel (Completed) Insulin, Total (Completed) Atypical eating disorder BMI 29.0-29.9,adult Relevant Orders Ambulatory referral to Nutrition Services Postoperative intestinal malabsorption Relevant Orders Folate (Completed) Ferritin (Completed) Magnesium Level (Completed) Uric Acid (Completed) Vitamin B12 (Completed) Vitamin B6 (Completed) Vitamin D, Total, 25-OH (Completed) Calcium, Ionized (Completed) Copper, Serum (Completed) Zinc (Completed) Vitamin B1, Whole Blood (Completed) Vitamin A (Completed) Selenium, Blood (Completed) PTH, Intact (Completed) Dyslipidemia Relevant Orders Lipoprotein NMR (Completed) Plan: 1200 farhat 120 g protein 60 g carb spread over 6 mini meal set status post gastric bypass. Walking program along with slow switch to fast which progression with benchmarking for muscle acquisition and strengthening at the gym. Labs to evaluate malabsorption's. Monitor her sleep and look at potentially getting a sleep study to evaluate for sleep apnea as she has a history of it prior to her bypass and some consistent periodic limb movement symptoms. Will use [id number] techniques for reward and sleep. We will get medication options to help with some of the reward eating behavior. However reassess here in the office in 2 weeks and see how she is progressing sooner if she is worse. This note was partially created using voice recognition software and is inherently subject to errors including those of syntax and sound-alike substitutions which may escape proofreading. In such instances, original meaning may be extrapolated by contextual derivation Review of Systems - see the sheet Diet and exercise history reviewed in detail please see the sheet The following portions of the patient's history were reviewed and updated as appropriate: allergies, current medications, past family history, past medical history, past social history, past surgical history and problem list See the sheet. Review of Systems Constitutional: Positive for activity change, appetite change, fatigue and unexpected weight change. Negative for chills, diaphoresis and fever. HENT: Negative for congestion, ear pain, facial swelling, postnasal drip, rhinorrhea, sinus pressure, sinus pain, sneezing, sore throat, tinnitus, trouble swallowing and voice change. Eyes: Negative for photophobia, pain, redness, itching and visual disturbance. Respiratory: Positive for wheezing. Negative for apnea, cough, choking, chest tightness and shortness of breath. Cardiovascular: Negative for chest pain, palpitations and leg swelling. Gastrointestinal: Negative for abdominal distention, abdominal pain, blood in stool, constipation, diarrhea, nausea and vomiting. Endocrine: Negative for cold intolerance, heat intolerance, polydipsia and polyuria. Genitourinary: Positive for menstrual problem. Negative for difficulty urinating, dysuria, enuresis, frequency, hematuria and urgency. Musculoskeletal: Positive for back pain. Negative for arthralgias, gait problem, joint swelling, myalgias and neck pain. Skin: Negative for color change and rash. Allergic/Immunologic: Negative for food allergies. Neurological: Negative for dizziness, tremors, syncope, speech difficulty, light-headedness, numbness and headaches. Hematological: Negative for adenopathy. Does not bruise/bleed easily. Psychiatric/Behavioral: Positive for sleep disturbance. Negative for agitation, confusion, decreased concentration, dysphoric mood and suicidal ideas. The patient is not nervous/anxious and is not hyperactive. Past Medical History: Diagnosis Date Arthritis Asthma Depression Disease of thyroid gland Lumbar back pain Social History Socioeconomic History Marital status: Single Tobacco Use Smoking status: Never Smoker Smokeless tobacco: Never Used Vaping Use Vaping Use: Never used Substance and Sexual Activity Alcohol use: Yes Comment: beer/ once a month Drug use: No Sexual activity: Not Currently Partners: Male Social Determinants of Health Food Insecurity: No Food Insecurity Worried About Running Out of Food in the Last Year: Never true Ran Out of Food in the Last Year: Never true Social Connections: Unknown Frequency of Social Gatherings with Friends and Family: Twice a week Current Outpatient Medications Medication Sig Dispense Refill atorvastatin (LIPITOR) 10 MG tablet Take 1 (one) tablet (10 mg total) by mouth daily . 30 tablet 11 ergocalciferol (ERGOCALCIFEROL) 1,250 mcg (50,000 unit) capsule Take 1 (one) capsule (50,000 Units total) by mouth once a week . 13 capsule 1 buPROPion (WELLBUTRIN) 75 MG tablet Take 1 (one) tablet (75 mg total) by mouth 2 (two) times a day Start with one in am and one in the afternoon . 60 tablet 1 cetirizine (ZyrTEC) 10 MG tablet Take 1 tablet (10 mg total) by mouth daily. (Patient not taking: Reported on 11/13/2021 .) 30 tablet 11 citalopram (CELEXA) 20 MG tablet Take 0.5 (one-half) tablet (10 mg total) by mouth daily . 90 tablet 3 escitalopram oxalate (LEXAPRO) 5 MG tablet Take 1 (one) tablet (5 mg total) by mouth nightly . 30 tablet 1 ferrous sulfate 220 mg (44 mg iron)/5 mL elixir Take 5 mL (220 mg total) by mouth daily With 500mg vitamin c . 150 mL 1 levothyroxine (SYNTHROID, LEVOTHROID) 125 MCG tablet Take 1 (one) tablet (125 mcg total) by mouth every morning . 30 tablet 1 melatonin 3 mg Tab Take 3 mg by mouth as needed. semaglutide (Ozempic) 0.25 mg or 0.5 mg(2 mg/1.5 mL) Pen Inject 0.25 (one-quarter) mg under the skin every 7 days For 2 weeks and then increase to 0.5 mg weekly. . (Patient not taking: Reported on 11/13/2021 .) 2 mL 11 topiramate (TOPAMAX) 25 MG tablet Take 1 (one) tablet (25 mg total) by mouth 2 (two) times a day One with lunch and one with dinner . 60 tablet 1 No current facility-administered medications for this visit. BP 129/81 Pulse 67 Ht 5' 10.98 (1.803 m) Wt 95.8 kg (211 lb 4.8 oz) LMP 07/03/2018 (Approximate) SpO2 98% BMI 29.48 kg/m Physical Exam Vitals and nursing note reviewed. Constitutional: General: She is not in acute distress. Appearance: She is well-developed. She is not diaphoretic. HENT: Head: Normocephalic and atraumatic. Comments: mallampati 3 Right Ear: External ear normal. No drainage, swelling or tenderness. Tympanic membrane is not injected, perforated, erythematous or bulging. Left Ear: External ear normal. No drainage, swelling or tenderness. Tympanic membrane is not injected, perforated, erythematous or bulging. Nose: Nose normal. No mucosal edema or rhinorrhea. Mouth/Throat: Pharynx: No oropharyngeal exudate or posterior oropharyngeal erythema. Tonsils: No tonsillar abscesses. Eyes: General: Lids are normal. No scleral icterus. Right eye: No discharge. Left eye: No discharge. Conjunctiva/sclera: Conjunctivae normal. Pupils: Pupils are equal, round, and reactive to light. Neck: Thyroid: No thyroid mass or thyromegaly. Vascular: No carotid bruit or JVD. Trachea: No tracheal deviation. Cardiovascular: Rate and Rhythm: Normal rate and regular rhythm. Pulses: Normal pulses. Carotid pulses are 2+ on the right side and 2+ on the left side. Radial pulses are 2+ on the right side and 2+ on the left side. Femoral pulses are 2+ on the right side and 2+ on the left side. Dorsalis pedis pulses are 2+ on the right side and 2+ on the left side. Posterior tibial pulses are 2+ on the right side and 2+ on the left side. Heart sounds: Normal heart sounds, S1 normal and S2 normal. No murmur heard. No friction rub. No gallop. No S3 or S4 sounds. Pulmonary: Effort: Pulmonary effort is normal. No respiratory distress. Breath sounds: Normal breath sounds. No wheezing or rales. Abdominal: General: Bowel sounds are normal. There is distension. Palpations: Abdomen is soft. There is no mass. Tenderness: There is no abdominal tenderness. There is no guarding or rebound. Hernia: No hernia is present. Musculoskeletal: General: No tenderness. Normal range of motion. Cervical back: Normal range of motion and neck supple. No spinous process tenderness or muscular tenderness. Lymphadenopathy: Head: Right side of head: No submental, submandibular, preauricular, posterior auricular or occipital adenopathy. Left side of head: No submental, submandibular, preauricular, posterior auricular or occipital adenopathy. Cervical: No cervical adenopathy. Skin: General: Skin is warm and dry. Findings: No erythema, petechiae or rash. Neurological: Mental Status: She is alert and oriented to person, place, and time. Cranial Nerves: No cranial nerve deficit. Sensory: No sensory deficit. Motor: No atrophy or abnormal muscle tone. Coordination: Coordination normal. Gait: Gait normal. Deep Tendon Reflexes: Reflexes normal. Reflex Scores: Bicep reflexes are 2+ on the right side and 2+ on the left side. Brachioradialis reflexes are 2+ on the right side and 2+ on the left side. Patellar reflexes are 2+ on the right side and 2+ on the left side. Psychiatric: Speech: Speech normal. Behavior: Behavior normal. Thought Content: Thought content normal. Judgment: Judgment normal. Problem List Items Addressed This Visit Endocrine Roland's thyroiditis Relevant Orders T3 (Completed) T4, Free (Completed) TSH (Completed) Other S/P bariatric surgery Relevant Orders Ambulatory referral to Nutrition Services Vitamin D deficiency Relevant Orders Vitamin D, Total, 25-OH (Completed) Iron deficiency Relevant Orders Ferritin (Completed) Iron and TIBC (Completed) History of anemia Other Visit Diagnoses Weight gain - Primary Relevant Orders CBC and Differential (Completed) Comprehensive Metabolic Panel (Completed) Insulin, Total (Completed) Atypical eating disorder BMI 29.0-29.9,adult Relevant Orders Ambulatory referral to Nutrition Services Postoperative intestinal malabsorption Relevant Orders Folate (Completed) Ferritin (Completed) Magnesium Level (Completed) Uric Acid (Completed) Vitamin B12 (Completed) Vitamin B6 (Completed) Vitamin D, Total, 25-OH (Completed) Calcium, Ionized (Completed) Copper, Serum (Completed) Zinc (Completed) Vitamin B1, Whole Blood (Completed) Vitamin A (Completed) Selenium, Blood (Completed) PTH, Intact (Completed) Dyslipidemia Relevant Orders Lipoprotein NMR (Completed) Return in 2 weeks (on 11/27/2021) for Recheck. Diet Discussed 1200 farhat 120g protein 60g carb protein first 6 mini meal set Exercise Prescription Discussedslow twitch to fast twitch progression and walking program and written personalized exercise regimen provided to patient at visit with appropriate modifications as warranted Counselor/Therapist Refer ton/a Behavioral Lifestyle [id number] and [id number] for reward and sleep and follow up with sleep medicine for repeat study and changes to eating patterns and macronutrient composition as well as activity levels discussed in detail Medicationswellbutrin and topamax and consider wegovy resubmission later Side Effects Discussedin detail Counseling Time: 48 minutes more than 50% of the time face to face discussing findings and coordinating care RE:diet exercise and meds documented in this encounter [facility] 10-06-2021 History of Presen t illness Narrative RECEIVED PA DETERMINATION. OZEMPIC DENIED. DENIAL DOCUMENTATION SCANNED INTO CHART. PA INITIATED FOR OZEMPIC THROUGH COVER MY MEDS. documented in this encounter [facility] 09-29-2021 History of Presen t illness Narrative PA INITIATED FOR OZEMPIC THROUGH COVER MY MEDS. documented in this encounter [facility] 09-29-2021 History of Presen t illness Narrative PA INITIATED FOR OZEMPIC THROUGH COVER MY MEDS. documented in this encounter [facility] 09-23-2021 History of Presen t illness Narrative RECEIVED RESPONSE FROM INSURANCE REGARDING PA ON WEGOVY. PA DENIED. DOCUMENTATION LOOKING FOR BMI 30 OR >. LAST CALCULATED BMI ON 08/17/21 WAS 29.7 AND PT HAD LOST 3 POUNDS SINCE THAT TIME SO BMI WOULD BE LESS THAN THAT. DOCUMENTATION SCANNED INTO CHART. ERIC JAMES INITIATED documented in this encounter [facility] 09-18-2021 Miscellaneous Notes RECEIVED FAX REQUEST FROM PHARMACY. REQUESTING REFILL ON CITALOPRAM. LAST OV 09/14/21. 10/14/21. documented in this encounter [facility] 09-14-2021 History of Presen t illness Narrative ERIC JAMES INITIATED documented in this encounter [facility] 09-14-2021 Instructions Ana M Osorio CNP - 09/14/2021 7:55 AM EST Problem List Items Addressed This Visit Other Overweight with body mass index (BMI) of 29 to 29.9 in adult - Primary Look into the Mediterranean or DASH. Eat meat, vegetables, nuts and seeds, some fruit, very little starch and absolutely no sugar. If you can grow it or kill it, then that's what you should be eating..... Chicken, turkey, fish pork, beef, ALL vegetables and fruit. More than 1/2 of your food in a day should be vegetables. If it is processed or you can not pronounce the ingredients, do not eat it! Shop the outside perimeter of the grocery store. Listen to your body, if you are hungry all the time you may need to increase your intake of healthy veggies and small healthy snacks. Eat whole, healthy foods and you won't need to count calories. Increase your activity level; the more you move your body the healthier you will be and the better you will feel! Relevant Medications semaglutide, weight loss, (WEGOVY) 0.5 mg/0.5 mL Pen If any referrals were placed at the time of your visit please allow 2 weeks for processing. If you haven't heard from anyone within 2 weeks please contact my office so we can look into the status of your referral. If you were given any labs today please ensure they are completed according to the directions given. Once labs are completed please allow 1-2 weeks for us to receive the results, review them, and let you know what steps, if any, are needed next. If you haven't heard from us after that please call to inquire. If labs were ordered to be done PRIOR to your next visit we will discuss the results at the time of your office visit. If any procedures or imaging studies were ordered that must be prior authorized please give us 2 weeks to get them approved. Once approved someone should call you to schedule them or give you a date and time that they were scheduled for. If you haven't heard anything within 2 weeks of the office visit please call the office so we can look into their status. Customer Service/Billing Questions: [phone] MyChart Assistance: [phone] or [phone] Financial Assistance: [phone] or [phone] documented in this encounter [facility] 09-14-2021 Miscellaneous Notes Associated Problem(s): Overweight with body mass index (BMI) of 29 to 29.9 in adult Look into the Mediterranean or DASH. Eat meat, vegetables, nuts and seeds, some fruit, very little starch and absolutely no sugar. If you can grow it or kill it, then that's what you should be eating..... Chicken, turkey, fish pork, beef, ALL vegetables and fruit. More than 1/2 of your food in a day should be vegetables. If it is processed or you can not pronounce the ingredients, do not eat it! Shop the outside perimeter of the grocery store. Listen to your body, if you are hungry all the time you may need to increase your intake of healthy veggies and small healthy snacks. Eat whole, healthy foods and you won't need to count calories. Increase your activity level; the more you move your body the healthier you will be and the better you will feel! documented in this encounter [facility] 09-14-2021 History of Presen t illness Narrative Images from the original note were not included. Subjective Patient ID: Reema Ventura is a 51 y.o. female. Patient is here today for a routine obesity followup. She was started on Adipex one month ago. She states this medication is giving her energy to do her workouts in the AM. She has been going to the gym 3-4 days per week consistently the past 3 weeks. She states it has not affected her appetite much. She has noticed her anxiety has been increased and she states she is not sleeping well. She states she feels like she is sleeping very lightly and never gets into a deep sleep. Talked about other weight loss options including Wegovy and Saxenda. Patient is interested in these options, she states she has called her insurance and is able to use their online coupon if needed. Talked about Mediterranean or DASH diet. Also talked about going to weight loss clinic in [place] if needed for follow up, she is agreeable to this plan. The following were reviewed and updated as appropriate for today's visit: allergies, current medications, past family history, past medical history, past social history, past surgical history and problem list. Patient's Medications New Prescriptions SEMAGLUTIDE, WEIGHT LOSS, (WEGOVY) 0.5 MG/0.5 ML PEN Inject 0.5 mL (0.5 mg total) under the skin every 7 days . Previous Medications ATORVASTATIN (LIPITOR) 10 MG TABLET Take 1 (one) tablet (10 mg total) by mouth daily . CETIRIZINE (ZYRTEC) 10 MG TABLET Take 1 tablet (10 mg total) by mouth daily. CITALOPRAM (CELEXA) 20 MG TABLET Take 1 (one) tablet (20 mg total) by mouth daily . ERGOCALCIFEROL (ERGOCALCIFEROL) 1,250 MCG (50,000 UNIT) CAPSULE Take 1 (one) capsule (50,000 Units total) by mouth once a week . LEVOTHYROXINE (SYNTHROID, LEVOTHROID) 137 MCG TABLET Take 1 (one) tablet (137 mcg total) by mouth daily . MELATONIN 3 MG TAB Take 3 mg by mouth as needed. Modified Medications No medications on file Discontinued Medications PHENTERMINE (ADIPEX-P) 37.5 MG TABLET Take 1 (one) tablet (37.5 mg total) by mouth every morning . Review of Systems Review of Systems Constitutional: Negative for activity change and fatigue. HENT: Negative for hearing loss. Eyes: Negative for visual disturbance. Respiratory: Negative for cough, chest tightness and shortness of breath. Cardiovascular: Negative for chest pain and palpitations. Musculoskeletal: Negative for gait problem. Skin: Negative. Neurological: Negative for dizziness, weakness, light-headedness and headaches. Psychiatric/Behavioral: Positive for decreased concentration and sleep disturbance. Negative for agitation. The patient is nervous/anxious. Vitals: 09/14/21 0731 BP: 138/88 BP Location: Right arm Patient Position: Sitting BP Cuff Size: Adult Pulse: 88 Resp: 18 Temp: 98.2 F (36.8 C) TempSrc: Oral SpO2: 96% Weight: 95.4 kg (210 lb 6.4 oz) Body mass index is 29.34 kg/m . Physical Exam Physical Exam Constitutional: Appearance: She is well-developed and well-nourished. She is obese. HENT: Right Ear: External ear normal. Left Ear: External ear normal. Nose: Nose normal. Mouth/Throat: Mouth: Oropharynx is clear and moist and mucous membranes are normal. Eyes: General: Lids are normal. Extraocular Movements: EOM normal. Conjunctiva/sclera: Conjunctivae normal. Cardiovascular: Rate and Rhythm: Normal rate and regular rhythm. Heart sounds: Normal heart sounds. No murmur heard. Pulmonary: Effort: Pulmonary effort is normal. Breath sounds: Normal breath sounds. Musculoskeletal: Cervical back: Normal range of motion. Comments: Normal gait Skin: General: Skin is warm and dry. Neurological: Mental Status: She is alert and oriented to person, place, and time. GCS: GCS eye subscore is 4. GCS verbal subscore is 5. GCS motor subscore is 6. Psychiatric: Mood and Affect: Mood and affect normal. Speech: Speech normal. Behavior: Behavior normal. OARRS/Edilia Report Received and Assessed: 08/17/2021 Date controlled substance agreement signed: 08/17/2021 Date of last drug screen: 08/17/2021 Functional Assessment: Weight loss medication Assessment/Plan Problem List Items Addressed This Visit Other Overweight with body mass index (BMI) of 29 to 29.9 in adult - Primary Look into the Mediterranean or DASH. Eat meat, vegetables, nuts and seeds, some fruit, very little starch and absolutely no sugar. If you can grow it or kill it, then that's what you should be eating..... Chicken, turkey, fish pork, beef, ALL vegetables and fruit. More than 1/2 of your food in a day should be vegetables. If it is processed or you can not pronounce the ingredients, do not eat it! Shop the outside perimeter of the grocery store. Listen to your body, if you are hungry all the time you may need to increase your intake of healthy veggies and small healthy snacks. Eat whole, healthy foods and you won't need to count calories. Increase your activity level; the more you move your body the healthier you will be and the better you will feel! Relevant Medications semaglutide, weight loss, (WEGOVY) 0.5 mg/0.5 mL Pen Preventative Goals Goals Blood Pressure < 130/80 High blood pressure makes your heart work too hard. It can cause heart attack, stroke and kidney disease. HEMOGLOBIN A1C < 7.0 Blood sugar levels outside the normal range may be an indicator of diabetes. For any new medications prescribed today, patient was educated about indications for the medication, how to take the medication and potential side effects of the medications. Ana M Osorio CNP documented in this encounter [facility] 08-17-2021 Miscellaneous Notes Associated Problem(s): Overweight with body mass index (BMI) of 29 to 29.9 in adult We will start Adipex today. Weight today is 213 pounds. Patient was advised of risks and benefits of controlled substance and verbalized understanding. OARRS performed 08/17/2021. Controlled medication contract on file. No suspicious behavior, concerning or suspicious history given at this visit. Recommended therapeutic lifestyle changes including healthy diet starting with a 500 calorie deficit/day and 30-60 min of exercise at least 3 times/week to help with weight loss. Patient can advance exercise regiment as tolerated. Types of exercise include strength training (cross fit, BIANCA, weight lifting) or aerobic exercise(/brisk walk/jogging/running) or a combination of both. documented in this encounter [facility] 08-17-2021 Instructions Agustina Flores MD - 08/17/2021 7:22 AM EDT Problem List Items Addressed This Visit Other Overweight with body mass index (BMI) of 29 to 29.9 in adult We will start Adipex today. Weight today is 213 pounds. Patient was advised of risks and benefits of controlled substance and verbalized understanding. OARRS performed 08/17/2021. Controlled medication contract on file. No suspicious behavior, concerning or suspicious history given at this visit. Recommended therapeutic lifestyle changes including healthy diet starting with a 500 calorie deficit/day and 30-60 min of exercise at least 3 times/week to help with weight loss. Patient can advance exercise regiment as tolerated. Types of exercise include strength training (cross fit, BIANCA, weight lifting) or aerobic exercise(/brisk walk/jogging/running) or a combination of both. Other Visit Diagnoses Weight gain - Primary Relevant Medications phentermine (ADIPEX-P) 37.5 mg tablet Other Relevant Orders Drugs of Abuse Screen, Urine Lipid Panel If any referrals were placed at the time of your visit please allow 2 weeks for processing. If you haven't heard from anyone within 2 weeks please contact my office so we can look into the status of your referral. If you were given any labs today please ensure they are completed according to the directions given. Most normal results will be available through [employer] however if abnormal, you will be notified. Please allow 48-72 hours for review, and let you know what steps, if any, are needed next. If you haven't heard from us after that please call to inquire. If labs were ordered to be done PRIOR to your next visit we will discuss the results at the time of your office visit. If any procedures or imaging studies were ordered that must be prior authorized please give us 2 weeks to get them approved. Once approved someone should call you to schedule them or give you a date and time that they were scheduled for. If you haven't heard anything within 2 weeks of the office visit please call the office so we can look into their status. Customer Service/Billing Questions: [phone] MyChart Assistance: [phone] or [phone] Financial Assistance: [phone] or [phone] documented in this encounter [facility] 08-17-2021 History of Presen t illness Narrative Subjective Patient ID: Reema Ventura is a 51 y.o. female. Chief Complaint Patient presents with Weight Gain HPI Patient is a very pleasant 51-year-old female with past medical history of hypothyroidism, anxiety, hypertension and is status post bariatric surgery in 2007. Overweight- BMI 29.7. She presents today for weight gain. She states since her bariatric surgery she has slowly started to gain weight back. Since December 2020 she has lost 8 pounds. She has recently joined a gym. She states that she tries to eat proteins as well but does not have a strict diet. She has tried Contrave in the past but she states she did not find it successful. And she discontinued use. We had extensive discussion about Adipex, wegovy and Saxenda, risks versus benefits of these medications as well. At this time patient would prefer Adipex as this is covered by her insurance. We also had extensive discussion about therapeutic lifestyle changes including healthy diet starting with a 500 calorie deficit/day and 30-60 min of exercise at least 3 times/week to help with weight loss. Patient can advance exercise regiment as tolerated. Types of exercise include strength training (cross fit, BIANCA, weight lifting) or aerobic exercise(/brisk walk/jogging/running) or a combination of both. All pertinent positives and negatives are documented in ROS Patient's medications, allergies, past medical history, surgical history history, family history, social history were reviewed. Spent more than 10 minutes with patient, coordinating patient care, including reviewing charts and counseling patient. Patient Active Problem List Diagnosis Hypothyroidism (acquired) S/P bariatric surgery Vitamin D deficiency Iron deficiency Asthma Arthritis Lumbar back pain Pain of left thumb Anemia Bursitis of hip, right Hypertension Overweight with body mass index (BMI) of 29 to 29.9 in adult Arthritis of carpometacarpal (CMC) joint of left thumb Osteoarthritis of carpometacarpal (CMC) joint of right thumb Sciatica Preoperative evaluation to rule out surgical contraindication Anxiety Frontal sinusitis Cough Laceration of left index finger with tendon involvement Menopausal syndrome History of anemia Roland's thyroiditis COVID-19 virus infection Past Surgical History: Procedure Laterality Date ANKLE SURGERY Left 09/04/2018 Left Ankle OS Trigonum excision-Dr Meza ANKLE SURGERY Left 06/18/2019 /ZOROASTRIANISM - GASTRIC BYPASS 2007 TENDON REPAIR HAND/FINGER Left 12/19/2020 Procedure: Left index finger extensor tendon repair percutaneous pinning; Surgeon: Ananya Madrigal MD; Location: Main OR; Service: Orthopedic TONSILLECTOMY TUBAL LIGATION 2000 Family History Problem Relation Age of Onset Hypertension Mother Heart disease Mother Cancer Mother Stroke Mother Clotting disorder Mother Hypertension Father Diabetes Father Heart disease Father Cancer Father Stroke Father Clotting disorder Father Social History Tobacco Use Smoking status: Never Smoker Smokeless tobacco: Never Used Vaping Use Vaping Use: Never used Substance Use Topics Alcohol use: Yes Comment: beer/ once a month Drug use: No Allergies Allergen Reactions Cats Claw (Uncaria [Cat's Claw (Uncaria Tomentosa)] Itching Sneeze Grass Pollen Mold Codeine Phosphate Unknown Outpatient Medications as of 08/17/2021 Medication Sig atorvastatin (LIPITOR) 10 MG tablet Take 1 (one) tablet (10 mg total) by mouth daily . cetirizine (ZyrTEC) 10 MG tablet Take 1 tablet (10 mg total) by mouth daily. citalopram (CELEXA) 20 MG tablet Take 1 (one) tablet (20 mg total) by mouth daily . ergocalciferol (ERGOCALCIFEROL) 1,250 mcg (50,000 unit) capsule Take 1 (one) capsule (50,000 Units total) by mouth once a week . fluticasone (FLONASE) 50 mcg/actuation nasal spray Instill 1 spray into each nostril 2 (two) times a day. (Patient taking differently: Instill 1 spray into each nostril daily as needed .) levothyroxine (SYNTHROID, LEVOTHROID) 137 MCG tablet Take 1 (one) tablet (137 mcg total) by mouth daily . melatonin 3 mg Tab Take 3 mg by mouth as needed. cephALEXin (KEFLEX) 500 MG capsule Take 1 (one) capsule (500 mg total) by mouth 2 (two) times a day . Review of Systems Constitutional: Negative for appetite change, fatigue, fever and unexpected weight change. Eyes: Negative for visual disturbance. Respiratory: Negative for cough, shortness of breath and wheezing. Cardiovascular: Negative for chest pain and palpitations. Gastrointestinal: Negative for abdominal pain, constipation and diarrhea. Neurological: Negative for dizziness, weakness, light-headedness and headaches. Objective Vitals: 08/17/21 0704 BP: 130/80 BP Location: Right arm Patient Position: Sitting BP Cuff Size: X-large Adult Pulse: 81 Resp: 16 Temp: 98.7 F (37.1 C) TempSrc: Temporal SpO2: 97% Weight: 96.6 kg (213 lb) Height: 5' 11 Estimated body mass index is 29.71 kg/m as calculated from the following: Height as of this encounter: 5' 11 . Weight as of this encounter: 96.6 kg (213 lb). Physical Exam Vitals and nursing note reviewed. Constitutional: Appearance: Normal appearance. HENT: Head: Normocephalic and atraumatic. Mouth/Throat: Mouth: Mucous membranes are moist. Eyes: Extraocular Movements: Extraocular movements intact. Cardiovascular: Rate and Rhythm: Normal rate and regular rhythm. Heart sounds: Normal heart sounds. Pulmonary: Effort: Pulmonary effort is normal. Breath sounds: Normal breath sounds. Abdominal: General: Abdomen is flat. There is no distension. Palpations: Abdomen is soft. Musculoskeletal: General: Normal range of motion. Skin: General: Skin is warm. Neurological: General: No focal deficit present. Mental Status: She is alert and oriented to person, place, and time. Mental status is at baseline. Psychiatric: Attention and Perception: Attention and perception normal. Mood and Affect: Mood normal. Speech: Speech normal. Behavior: Behavior normal. Thought Content: Thought content normal. Cognition and Memory: Cognition and memory normal. Judgment: Judgment normal. Assessment/Plan: Problem List Items Addressed This Visit Other Overweight with body mass index (BMI) of 29 to 29.9 in adult We will start Adipex today. Weight today is 213 pounds. Patient was advised of risks and benefits of controlled substance and verbalized understanding. OARRS performed 08/17/2021. Controlled medication contract on file. No suspicious behavior, concerning or suspicious history given at this visit. Recommended therapeutic lifestyle changes including healthy diet starting with a 500 calorie deficit/day and 30-60 min of exercise at least 3 times/week to help with weight loss. Patient can advance exercise regiment as tolerated. Types of exercise include strength training (cross fit, BIANCA, weight lifting) or aerobic exercise(/brisk walk/jogging/running) or a combination of both. Other Visit Diagnoses Weight gain - Primary Relevant Medications phentermine (ADIPEX-P) 37.5 mg tablet Other Relevant Orders Drugs of Abuse Screen, Urine Lipid Panel Return in about 4 weeks (around 09/14/2021) for Follow Up weight loss. For any new medications prescribed today, patient was educated about indications for the medication, how to take the medication and potential side effects of the medications. Agustina Flores MD documented in this encounter [facility] 06-23-2021 Miscellaneous Notes Associated Problem(s): COVID-19 virus infection Symptoms are typical for Covid infection, needs further confirmation with testing for work purposes. Patient has already been quarantining and should remain in quarantine and isolation for total of 10 days which would be till 29 June. I urged patient to continue to keep up with good hydration and Tylenol on as-needed basis. Keep up the good work with hand hygiene, mask at home and isolating from her family members. We will had to urgent care to get rapid test locally in [place], since it is offered through [facility] in the ER at that time. Patient is already improving and will enough not to offer monoclonal antibody infusion. documented in this encounter [facility] 06-23-2021 History of Presen t illness Narrative Video Visit Via Phone Call [facility] [address] [facility] [address] [facility] [id number] Video Visit [facility] 06/23/2021 Bhavesh Faust MD Provider Location: [address] [place], [place] Patient Location Medical Secretary: None Patient Location: Patient's Home Patient: Reema Ventura Date of : 1970 (51 y.o. female) PCP: Ana M Osorio CNP I discussed risks, benefits and alternatives of a video visit telemedicine consultation with the patient (and any accompanying persons) including the risks that the patient's personal health details and medical records will be discussed over real-time, synchronous, interactive audio technology, the visit will not be recorded without the express consent of both the provider and the patient, and that there are inherent diagnostic limitations compared to [id number] evaluations. We elected to proceed with the video visit telemedicine consultation. HPI Reema Ventura is a 51-year-old female presenting today via video visit for Covid symptoms. PMH of hypothyroidism, arthritis, vitamin D deficiency, hypertension, asthma, low back pain with sciatica. Symptoms started on Tuesday/4 days ago with congestion, sore throat, cough , body aches,, subjectively feeling hot, no thermometer at home and feeling fatigued. Talking to her boss at work, mentioned that she should be specifically tested for Covid with rapid test and not a regular PCR test. Has been checking through [facility] didn't which offer the rapid, wondering about availabilities through [facility]. Feeling a bit better today , still lingering headache and congestion. Has been isolating from her daughter and boyfriend who is living with her. Of note patient had the vaccination completed in January with [facility]. The following portions of the patient's history were reviewed and updated as appropriate: allergies, current medications, past family history, past medical history, past social history, past surgical history and problem list. Review of Systems Patient's Medications New Prescriptions No medications on file Previous Medications ATORVASTATIN (LIPITOR) 10 MG TABLET Take 1 (one) tablet (10 mg total) by mouth daily . CETIRIZINE (ZYRTEC) 10 MG TABLET Take 1 tablet (10 mg total) by mouth daily. CITALOPRAM (CELEXA) 20 MG TABLET Take 1 (one) tablet (20 mg total) by mouth daily . COMPOUNDED MEDICATION COMPOUNDED MEDICATION Progesterone 225 mg (clear, dye-free) Take 1 capsule PO @ HS ERGOCALCIFEROL (ERGOCALCIFEROL) 1,250 MCG (50,000 UNIT) CAPSULE Take 1 (one) capsule (50,000 Units total) by mouth once a week . FLUTICASONE (FLONASE) 50 MCG/ACTUATION NASAL SPRAY Instill 1 spray into each nostril 2 (two) times a day. LEVOTHYROXINE (SYNTHROID, LEVOTHROID) 137 MCG TABLET Take 1 (one) tablet (137 mcg total) by mouth daily . MELATONIN 3 MG TAB Take 3 mg by mouth as needed. Modified Medications No medications on file Discontinued Medications No medications on file Assessment/Plan: Problem List Items Addressed This Visit Other COVID-19 virus infection - Primary Symptoms are typical for Covid infection, needs further confirmation with testing for work purposes. Patient has already been quarantining and should remain in quarantine and isolation for total of 10 days which would be till 29 June. I urged patient to continue to keep up with good hydration and Tylenol on as-needed basis. Keep up the good work with hand hygiene, mask at home and isolating from her family members. We will had to urgent care to get rapid test locally in [place], since it is offered through [facility] in the ER at that time. Patient is already improving and will enough not to offer monoclonal antibody infusion. BHAVESH FAUST MD Family Medicine Physician [facility] [place] [phone] documented in this encounter [facility] 05-18-2021 Miscellaneous Notes Refill requested on pended medication. Last OV 12/26/20. No future appointments scheduled. documented in this encounter [facility] 01-30-2008 History of Presen t illness Narrative Patient visits Nutrition Therapy today for post-op weight loss surgery (RNYGB) 9 month follow-up. PROGRESS: 37 year old Body mass index is 24.78 kg/(m^2). Goals: Continue to lose #1-2 per week. Intervention: 1. Increase your calcium citrate with vitamin D (500-600mg in afternoon and 500-600mg with dinner). Continue with all other vitamin/mineral supplments in the am 2. Continue with eating protein first at every meal with a goal of 60 grams per day. Three small meals and 2 smaller snacks 3. Continue with your 6-8 cups of calorie-free, caffeine-free, no carbonation beverages-water, decaf coffee/decaf tea, skim milk 4. Continue with your physical activity-minimum of 60-90 minutes a day, 5 times per week-walking, epical and weight training Follow-up: 3 months to access adherence to goals RESPONSE: met Actions to fulfill goals: Walking 90 minutes, 3-4 times a week. Switched to viactive chews-twice a day in divided dose. Continue with all other vitamin/mineral supplments. Fluids remain consistent. Continues with three meals a day and only 1 smaller snack. Continues with a protein shake on ocassion for a meal replacement. ASSESSMENT: Weight loss of #14 past 3 months. 78% loss of excess body weight. Thyroid medication was increased past 1 month. Continues to meet both protein and fluid needs daily. Patient is following all post-op diet guidelines. Patient has obesity related to excess energy intake as evidence by BMI (24.78) ACTION, PLAN OF CARE AND RATIONALE: Diet Instruction and Counseling provided to Patient Goal: Continue to lose #1-2 per week. Intervention: 1. Switch back to the citracal with vitamin D (500-600mg in the afternoon and 500-600mg at dinner) Continue with all other vitamin/mineral supplments 2. Continue with your 8 cups of calorie-free, caffeine-free, no carbonation beverages-water, decaf coffee/decaf tea, skim milk 3. Continue with eating protein first at every meal with a goal of 60 grams per day. Three small meals and 1 smaller snacks 4. Continue with eating protein first at every meal with a goal of 60 grams per day 5. Continue with your physical activity-minimum of 90 minutes a day, 4 times per week-walking, add arm weight or leg weight Patient weight goal:#155 Follow-up: 3 months to access adherence to goals EDUCATIONAL MATERIALS: None this visit REVISIONS IN DIAGNOSIS: Diagnosis: has not changed. Likihood of Adherence: High Need for followup: 3 months to assess adherence to goals Referred/Supervised by: Lisa/Lias Consult Billing Type: Re-assess/15 minutes Number of Increments: 2 CRISTOBAL Poole PROGRESS: 37 year old Body mass index is 24.78 kg/(m^2). Goals: RESPONSE: CHANGES IN TREATMENT: Actions to fulfill goals: CLINICAL IMPRESSIONS: ASSESSMENT: ACTION, PLAN OF CARE AND RATIONALE: EDUCATIONAL MATERIALS: REVISIONS IN DIAGNOSIS: Diagnosis: Likihood of Adherence: Need for followup: Referred/Supervised by: Consult Billing Type: Number of Increments: CRISTOBAL Poole PROGRESS: 37 year old Body mass index is 24.78 kg/(m^2). Goals: RESPONSE: CHANGES IN TREATMENT: Actions to fulfill goals: CLINICAL IMPRESSIONS: ASSESSMENT: ACTION, PLAN OF CARE AND RATIONALE: EDUCATIONAL MATERIALS: REVISIONS IN DIAGNOSIS: Diagnosis: Likihood of Adherence: Need for followup: Referred/Supervised by: Consult Billing Type: Number of Increments: CRISTOBAL Poole documented in this encounter documented in this encounter Evaluation note* Diagnosis COVID-19 virus infection- Primary documented in this encounter [facility] note* Diagnosis Overweight with body mass index (BMI) of 29 to 29.9 in adult- Primary [facility] Diagnosis Overweight with body mass index (BMI) of 29 to 29.9 in adult- Primary [facility] Diagnosis S/P bariatric surgery BMI 29.0-29.9,adult [facility]* Diagnosis Daytime sleepiness- Primary Snoring Other dyspnea and respiratory abnormality [facility] Diagnosis Atypical eating disorder- Primary Insulin resistance Other abnormal glucose Dyslipidemia Other and unspecified hyperlipidemia Iron deficiency Disorders of iron metabolism S/P bariatric surgery Roland's thyroiditis Chronic lymphocytic thyroiditis Sleep disorder Unspecified sleep disturbance Overweight (BMI 25.0-29.9) Overweight BMI 28.0-28.9,adult [facility]* Diagnosis Atypical eating disorder- Primary [facility]* Diagnosis Weight gain- Primary Other symptoms concerning nutrition, metabolism, and development Atypical eating disorder BMI 29.0-29.9,adult S/P bariatric surgery Postoperative intestinal malabsorption Dyslipidemia Other and unspecified hyperlipidemia History of anemia Personal history of diseases of blood and blood-forming organs Roland's thyroiditis Chronic lymphocytic thyroiditis Vitamin D deficiency Iron deficiency Disorders of iron metabolism [facility] Diagnosis Constipation, unspecified constipation type- Primary [facility]* Diagnosis Daytime sleepiness Snoring Other dyspnea and respiratory abnormality [facility]* Diagnosis Atypical eating disorder- Primary Insulin resistance Other abnormal glucose Dyslipidemia Other and unspecified hyperlipidemia Iron deficiency Disorders of iron metabolism Constipation, unspecified constipation type Overweight (BMI 25.0-29.9) Overweight BMI 28.0-28.9,adult Roland's thyroiditis Chronic lymphocytic thyroiditis Vitamin D deficiency [facility] Diagnosis IVETTE (obstructive sleep apnea) Obstructive sleep apnea (adult) (pediatric) [facility] Diagnosis Hyperlipidemia LDL goal <100 Other and unspecified hyperlipidemia [facility] Diagnosis Atypical eating disorder- Primary Insulin resistance Other abnormal glucose Dyslipidemia Other and unspecified hyperlipidemia Iron malabsorption Other specified intestinal malabsorption S/P bariatric surgery Constipation, unspecified constipation type Roland's thyroiditis Chronic lymphocytic thyroiditis Iron deficiency Disorders of iron metabolism Anemia, unspecified type Intestinal malabsorption, unspecified type BMI 27.0-27.9,adult Overweight (BMI 25.0-29.9) Overweight [facility] Diagnosis Iron deficiency Disorders of iron metabolism [facility] Diagnosis Roland's thyroiditis- Primary Chronic lymphocytic thyroiditis Iron malabsorption Other specified intestinal malabsorption Iron deficiency anemia, unspecified iron deficiency anemia type Iron deficiency Disorders of iron metabolism Intestinal malabsorption, unspecified type [facility]* Diagnosis Atypical eating disorder- Primary Insulin resistance Other abnormal glucose Dyslipidemia Other and unspecified hyperlipidemia Iron malabsorption Other specified intestinal malabsorption S/P bariatric surgery Roland's thyroiditis Chronic lymphocytic thyroiditis Overweight (BMI 25.0-29.9) Overweight BMI 26.0-26.9,adult [facility]* Diagnosis Iron malabsorption- Primary Other specified intestinal malabsorption Iron deficiency anemia, unspecified iron deficiency anemia type Iron deficiency Disorders of iron metabolism [facility]* Diagnosis Iron malabsorption- Primary Other specified intestinal malabsorption Iron deficiency anemia, unspecified iron deficiency anemia type Iron deficiency Disorders of iron metabolism [facility]* Diagnosis Iron malabsorption- Primary Other specified intestinal malabsorption Iron deficiency anemia, unspecified iron deficiency anemia type Iron deficiency Disorders of iron metabolism [facility]* Diagnosis Iron malabsorption- Primary Other specified intestinal malabsorption Iron deficiency anemia, unspecified iron deficiency anemia type Iron deficiency Disorders of iron metabolism Intestinal malabsorption, unspecified type [facility]* Diagnosis Atypical eating disorder- Primary Insulin resistance Other abnormal glucose Dyslipidemia Other and unspecified hyperlipidemia Iron malabsorption Other specified intestinal malabsorption S/P bariatric surgery Constipation, unspecified constipation type Anxiety Anxiety state, unspecified Vitamin D deficiency BMI 24.0-24.9, adult [facility]* Diagnosis Localized adiposity- Primary Atrophic skin Other specified hypertrophic and atrophic condition of skin [facility] Diagnosis Atypical eating disorder- Primary Insulin resistance Other abnormal glucose Dyslipidemia Other and unspecified hyperlipidemia Iron malabsorption Other specified intestinal malabsorption S/P bariatric surgery Roland's thyroiditis Chronic lymphocytic thyroiditis BMI 24.0-24.9, adult Anxiety Anxiety state, unspecified Overweight (BMI 25.0-29.9) Overweight [facility]* Diagnosis Roland's thyroiditis- Primary Chronic lymphocytic thyroiditis [facility]* Diagnosis Roland's thyroiditis Chronic lymphocytic thyroiditis [facility] Diagnosis Overweight (BMI 25.0-29.9) Overweight [facility] Diagnosis Localized adiposity- Primary Atrophic skin Other specified hypertrophic and atrophic condition of skin Localized adiposity Atrophic skin Other specified hypertrophic and atrophic condition of skin [facility] Diagnosis S/P abdominoplasty- Primary Other postprocedural status Atrophic skin Other specified hypertrophic and atrophic condition of skin Localized adiposity Localized adiposity Atrophic skin Other specified hypertrophic and atrophic condition of skin [facility] Diagnosis Roland's thyroiditis Chronic lymphocytic thyroiditis [facility] Diagnosis S/P abdominoplasty- Primary Other postprocedural status documented in this encounter [facility] note* Diagnosis S/P abdominoplasty- Primary Other postprocedural status documented in this encounter [facility] note* Diagnosis S/P abdominoplasty- Primary Other postprocedural status documented in this encounter [facility] note* Diagnosis Roland's thyroiditis Chronic lymphocytic thyroiditis [facility] Diagnosis Constipation, unspecified constipation type [facility] Diagnosis Overweight (BMI 25.0-29.9) Overweight [facility] Diagnosis Iron deficiency- Primary Disorders of iron metabolism Dyslipidemia Other and unspecified hyperlipidemia [facility] Diagnosis Atypical eating disorder- Primary Insulin resistance Other abnormal glucose Iron deficiency Disorders of iron metabolism Dyslipidemia Other and unspecified hyperlipidemia BMI 23.0-23.9, adult [facility] Diagnosis Roland's thyroiditis Chronic lymphocytic [facility] Atypical eating disorder- Primary Insulin resistance Other abnormal glucose Iron deficiency Disorders of iron metabolism Dyslipidemia Other and unspecified hyperlipidemia BMI 23.0-23.9, adult [facility] Insulin resistance- Primary Other abnormal glucose [facility] Diagnosis Insomnia, unspecified type- Primary Roland's thyroiditis Chronic lymphocytic thyroiditis Mild intermittent asthma without complication Anxiety Anxiety state, unspecified Iron malabsorption Other specified intestinal malabsorption Mild major depression (HCC) Major depressive disorder, single episode, mild Encounter for screening for malignant neoplasm of breast, unspecified screening modality [facility] Diagnosis Insomnia, unspecified type- Primary Roland's thyroiditis Chronic lymphocytic thyroiditis Mild intermittent asthma without complication Anxiety Anxiety state, unspecified Iron malabsorption Other specified intestinal malabsorption Mild major depression (HCC) Major depressive disorder, single episode, mild Encounter for screening for malignant neoplasm of breast, unspecified screening modality Breast nodule Other (abnormal) findings on radiological examination of breast [facility] Diagnosis Overweight (BMI 25.0-29.9) [facility] Diagnosis Overweight (BMI 25.0-29.9) [facility] Diagnosis Insulin resistance- Primary Other abnormal glucose Atypical eating disorder Iron deficiency Disorders of iron metabolism Dyslipidemia Other and unspecified hyperlipidemia Overweight (BMI 25.0-29.9) Overweight BMI 26.0-26.9,adult [facility] Diagnosis Roland's thyroiditis Chronic lymphocytic thyroiditis [facility] Diagnosis Hypothyroidism, unspecified type- Primary [facility] Diagnosis Encounter for screening for malignant neoplasm of colon Other specified congenital malformations of intestine Unspecified asthma, uncomplicated Disorder of thyroid, unspecified [facility]* Diagnosis Insomnia, unspecified type [facility] Diagnosis Insulin resistance- Primary Other abnormal glucose Atypical eating disorder S/P bariatric surgery Overweight (BMI 25.0-29.9) Overweight BMI 27.0-27.9,adult Iron deficiency Disorders of iron metabolism Iron malabsorption Other specified intestinal malabsorption [facility] Diagnosis Atypical eating disorder- Primary [facility] Diagnosis Atypical eating disorder [facility] Diagnosis Atypical eating disorder- Primary Insulin resistance Other abnormal glucose S/P bariatric surgery Iron deficiency Disorders of iron metabolism Iron malabsorption Other specified intestinal malabsorption Dyslipidemia Other and unspecified hyperlipidemia Overweight (BMI 25.0-29.9) Overweight BMI 27.0-27.9,adult Hypothyroidism (acquired) Unspecified hypothy[facility] Encounter for screening for malignant neoplasm of breast, unspecified screening modality Encounter for immunization Overweight with body mass index (BMI) of 29 to 29.9 in adult Vitamin D deficiency Mild major depression (HCC) Major depressive disorder, single episode, mild [facility] Diagnosis Vitamin D deficiency- Primary Vitamin B12 deficiency Other B-complex deficiencies [facility]ructions * Patient Instructions - Alberto Pedersen MD - 02/20/2018 8:25 AM EDT Formatting of this note may be different from the original. Problem List Items Addressed This Visit Cardiovascular and Mediastinum Hypertension Outstanding decrease in BP as well as some weight loss since last seen. 104/72. Will go ahead and reduce the Losartan to 1/2 of the 50 mg of the 25 mg per day. If the home reading start to go above 130/80 go back to the full 50 mg Tablet. Relevant Medications losartan (COZAAR) 50 MG tablet Other Lumbar back pain Will rewrite the script for the Medical or therapeutic mssage therapy up to once a week for 50 weeks as indicated. Overweight (BMI 25.0-29.9) Initial: One tablet (naltrexone 8 mg/bupropion 90 mg) once daily in the morning for 1 week; at week2, increase to 1 tablet twice daily administered in the morning and evening and continue for 1 week; at week 3, increase to 2 tablets in the morning and 1 tablet in the evening and continue for 1 week; at week 4, increase to 2 tablets twice daily administered in the morning and evening and continuefor the remainder of the treatment course. Will increase the dose of the medication and rewrite the script accordingly in this encounter* Patient Instructions - Alberto Pedersen MD - 11/21/2017 8:57 AM EST Formatting of this note may be different from the original. High Blood Pressure: Care Instructions Your Care Instructions If your blood pressure is usually above 140/90, you have high blood pressure, or hypertension. Thatmeans the top number is 140 or higher or the bottom number is 90 or higher, or both. Despite what a lot of people think, high blood pressure usually doesn't cause headaches or make youfeel dizzy or lightheaded. It usually has no symptoms. But it does increase your risk for heart attack, stroke, and kidney or eye damage. The higher your blood pressure, the more your risk increases. Your doctor will give you a goal for your blood pressure. Your goal will be based on your health and your age. An example of a goal is to keep your blood pressure below 140/90. Lifestyle changes, such as eating healthy and being active, are always important to help lower blood pressure. You might also take medicine to reach your blood pressure goal. Follow-up care is a bacon part of your treatment and safety. Be sure to make and go to all appointments, and call your doctor if you are having problems. It's also a good idea to know your test resultsand keep a list of the medicines you take. How can you care for yourself at home? Medical treatment If you stop taking your medicine, your blood pressure will go back up. You may take one or more types of medicine to lower your blood pressure. Be safe with medicines. Take your medicine exactly as prescribed. Call your doctor if you think you are having a problem with your medicine. Talk to your doctor before you start taking aspirin every day. Aspirin can help certain people lower their risk of a heart attack or stroke. But taking aspirin isn't right for everyone, because it can cause serious bleeding. See your doctor regularly. You may need to see the doctor more often at first or until your blood pressure comes down. If you are taking blood pressure medicine, talk to your doctor before you take decongestants or anti-inflammatory medicine, such as ibuprofen. Some of these medicines can raise blood pressure. Learn how to check your blood pressure at home. Lifestyle changes Stay at a healthy weight. This is especially important if you put on weight around the waist. Losing even 10 pounds can help you lower your blood pressure. If your doctor recommends it, get more exercise. Walking is a good choice. Bit by bit, increase theamount you walk every day. Try for at least 30 minutes on most days of the week. You also may want to swim, bike, or do other activities. Avoid or limit alcohol. Talk to your doctor about whether you can drink any alcohol. Try to limit how much sodium you eat to less than 2,300 milligrams (mg) a day. Your doctor may ask you to try to eat less than 1,500 mg a day. Eat plenty of fruits (such as bananas and oranges), vegetables, legumes, whole grains, and low-fat dairy products. Lower the amount of saturated fat in your diet. Saturated fat is found in animal products such as milk, cheese, and meat. Limiting these foods may help you lose weight and also lower your risk for heart disease. Do not smoke. Smoking increases your risk for heart attack and stroke. If you need help quitting, talk to your doctor about stop-smoking programs and medicines. These can increase your chances of quitting for good. When should you call for help? Call 911 anytime you think you may need emergency care. This may mean having symptoms that suggest that your blood pressure is causing a serious heart or blood vessel problem. Your blood pressure maybe over 180/110. For example, call 911 if: You have symptoms of a heart attack. These may include: Chest pain or pressure, or a strange feeling in the chest. Sweating. Shortness of breath. Nausea or vomiting. Pain, pressure, or a strange feeling in the back, neck, jaw, or upper belly or in one or both shoulders or arms. Lightheadedness or sudden weakness. A fast or irregular heartbeat. You have symptoms of a stroke. These may include: Sudden numbness, tingling, weakness, or loss of movement in your face, arm, or leg, especially on only one side of your body. Sudden vision changes. Sudden trouble speaking. Sudden confusion or trouble understanding simple statements. Sudden problems with walking or balance. A sudden, severe headache that is different from past headaches. You have severe back or belly pain. Do not wait until your blood pressure comes down on its own. Get help right away. Call your doctor now or seek immediate care if: Your blood pressure is much higher than normal (such as 180/110 or higher), but you don't have symptoms. You think high blood pressure is causing symptoms, such as: Severe headache. Blurry vision. Watch closely for changes in your health, and be sure to contact your doctor if: Your blood pressure measures 140/90 or higher at least 2 times. That means the top number is 140 orhigher or the bottom number is 90 or higher, or both. You think you may be having side effects from your blood pressure medicine. Your blood pressure is usually normal, but it goes above normal at least 2 times. Where can you learn more? Log into your personal health record on [email or web address].[email or web address] and enter X567 in the Education box to learn more about High Blood Pressure: Care Instructions. Current as of: May 31, 2016 Content Version: 11.2 2625-3310 [facility]. Care instructions adapted under license by your healthcare professional. If you have questions about a medical condition or this instruction, always ask your healthcare professional. [facility] disclaims any warranty or liability for your use of this information. DASH Diet: Care Instructions Your Care Instructions The DASH diet is an eating plan that can help lower your blood pressure. DASH stands for Dietary Approaches to Stop Hypertension. Hypertension is high blood pressure. The DASH diet focuses on eating foods that are high in calcium, potassium, and magnesium. These nutrients can lower blood pressure. The foods that are highest in these nutrients are fruits, vegetables, low-fat dairy products, nuts, seeds, and legumes. But taking calcium, potassium, and magnesium supplements instead of eating foods that are high in those nutrients does not have the same effect. The DASH diet also includes whole grains, fish, and poultry. The DASH diet is one of several lifestyle changes your doctor may recommend to lower your high blood pressure. Your doctor may also want you to decrease the amount of sodium in your diet. Lowering sodium while following the DASH diet can lower blood pressure even further than just the DASH diet alone. Follow-up care is a bacon part of your treatment and safety. Be sure to make and go to all appointments, and call your doctor if you are having problems. It's also a good idea to know your test resultsand keep a list of the medicines you take. How can you care for yourself at home? Following the DASH diet Eat 4 to 5 servings of fruit each day. A serving is 1 medium-sized piece of fruit, cup chopped or canned fruit, 1/4 cup dried fruit, or 4 ounces ( cup) of fruit juice. Choose fruit more often than fruit juice. Eat 4 to 5 servings of vegetables each day. A serving is 1 cup of lettuce or raw leafy vegetables, cup of chopped or cooked vegetables, or 4 ounces ( cup) of vegetable juice. Choose vegetables more often than vegetable juice. Get 2 to 3 servings of low-fat and fat-free dairy each day. A serving is 8 ounces of milk, 1 cup ofyogurt, or 1 ounces of cheese. Eat 6 to 8 servings of grains each day. A serving is 1 slice of bread, 1 ounce of dry cereal, or cup of cooked rice, pasta, or cooked cereal. Try to choose whole-grain products as much as possible. Limit lean meat, poultry, and fish to 2 servings each day. A serving is 3 ounces, about the size ofa deck of cards. Eat 4 to 5 servings of nuts, seeds, and legumes (cooked dried beans, lentils, and split peas) each week. A serving is 1/3 cup of nuts, 2 tablespoons of seeds, or cup of cooked beans or peas. Limit fats and oils to 2 to 3 servings each day. A serving is 1 teaspoon of vegetable oil or 2 tablespoons of salad dressing. Limit sweets and added sugars to 5 servings or less a week. A serving is 1 tablespoon jelly or jam,cup sorbet, or 1 cup of lemonade. Eat less than 2,300 milligrams (mg) of sodium a day. If you limit your sodium to 1,500 mg a day, you can lower your blood pressure even more. Tips for success Start small. Do not try to make dramatic changes to your diet all at once. You might feel that you are missing out on your favorite foods and then be more likely to not follow the plan. Make small changes, and stick with them. Once those changes become habit, add a few more changes. Try some of the following: Make it a goal to eat a fruit or vegetable at every meal and at snacks. This will make it easy to get the recommended amount of fruits and vegetables each day. Try yogurt topped with fruit and nuts for a snack or healthy dessert. Add lettuce, tomato, cucumber, and onion to sandwiches. Combine a ready-made pizza crust with low-fat mozzarella cheese and lots of vegetable toppings. Tryusing tomatoes, squash, spinach, broccoli, carrots, cauliflower, and onions. Have a variety of cut-up vegetables with a low-fat dip as an appetizer instead of chips and dip. Sprinkle sunflower seeds or chopped almonds over salads. Or try adding chopped walnuts or almonds to cooked vegetables. Try some vegetarian meals using beans and peas. Add garbanzo or kidney beans to salads. Make burritos and tacos with mashed donaldson beans or black beans. Where can you learn more? Log into your personal health record on [email or web address]://[email or web address].Talknote and enter H967 in the Education box to learn more about DASH Diet: Care Instructions. Current as of: January 14, 2016 Content Version: 11.2 3692-8743 [facility]. Care instructions adapted under license by your healthcare professional. If you have questions about a medical condition or this instruction, always ask your healthcare professional. [facility] disclaims any warranty or liability for your use of this information. High Blood Pressure: Care Instructions Your Care Instructions If your blood pressure is usually above 140/90, you have high blood pressure, or hypertension. Thatmeans the top number is 140 or higher or the bottom number is 90 or higher, or both. Despite what a lot of people think, high blood pressure usually doesn't cause headaches or make youfeel dizzy or lightheaded. It usually has no symptoms. But it does increase your risk for heart attack, stroke, and kidney or eye damage. The higher your blood pressure, the more your risk increases. Your doctor will give you a goal for your blood pressure. Your goal will be based on your health and your age. An example of a goal is to keep your blood pressure below 140/90. Lifestyle changes, such as eating healthy and being active, are always important to help lower blood pressure. You might also take medicine to reach your blood pressure goal. Follow-up care is a bacon part of your treatment and safety. Be sure to make and go to all appointments, and call your doctor if you are having problems. It's also a good idea to know your test resultsand keep a list of the medicines you take. How can you care for yourself at home? Medical treatment If you stop taking your medicine, your blood pressure will go back up. You may take one or more types of medicine to lower your blood pressure. Be safe with medicines. Take your medicine exactly as prescribed. Call your doctor if you think you are having a problem with your medicine. Talk to your doctor before you start taking aspirin every day. Aspirin can help certain people lower their risk of a heart attack or stroke. But taking aspirin isn't right for everyone, because it can cause serious bleeding. See your doctor regularly. You may need to see the doctor more often at first or until your blood pressure comes down. If you are taking blood pressure medicine, talk to your doctor before you take decongestants or anti-inflammatory medicine, such as ibuprofen. Some of these medicines can raise blood pressure. Learn how to check your blood pressure at home. Lifestyle changes Stay at a healthy weight. This is especially important if you put on weight around the waist. Losing even 10 pounds can help you lower your blood pressure. If your doctor recommends it, get more exercise. Walking is a good choice. Bit by bit, increase theamount you walk every day. Try for at least 30 minutes on most days of the week. You also may want to swim, bike, or do other activities. Avoid or limit alcohol. Talk to your doctor about whether you can drink any alcohol. Try to limit how much sodium you eat to less than 2,300 milligrams (mg) a day. Your doctor may ask you to try to eat less than 1,500 mg a day. Eat plenty of fruits (such as bananas and oranges), vegetables, legumes, whole grains, and low-fat dairy products. Lower the amount of saturated fat in your diet. Saturated fat is found in animal products such as milk, cheese, and meat. Limiting these foods may help you lose weight and also lower your risk for heart disease. Do not smoke. Smoking increases your risk for heart attack and stroke. If you need help quitting, talk to your doctor about stop-smoking programs and medicines. These can increase your chances of quitting for good. When should you call for help? Call 911 anytime you think you may need emergency care. This may mean having symptoms that suggest that your blood pressure is causing a serious heart or blood vessel problem. Your blood pressure maybe over 180/110. For example, call 911 if: You have symptoms of a heart attack. These may include: Chest pain or pressure, or a strange feeling in the chest. Sweating. Shortness of breath. Nausea or vomiting. Pain, pressure, or a strange feeling in the back, neck, jaw, or upper belly or in one or both shoulders or arms. Lightheadedness or sudden weakness. A fast or irregular heartbeat. You have symptoms of a stroke. These may include: Sudden numbness, tingling, weakness, or loss of movement in your face, arm, or leg, especially on only one side of your body. Sudden vision changes. Sudden trouble speaking. Sudden confusion or trouble understanding simple statements. Sudden problems with walking or balance. A sudden, severe headache that is different from past headaches. You have severe back or belly pain. Do not wait until your blood pressure comes down on its own. Get help right away. Call your doctor now or seek immediate care if: Your blood pressure is much higher than normal (such as 180/110 or higher), but you don't have symptoms. You think high blood pressure is causing symptoms, such as: Severe headache. Blurry vision. Watch closely for changes in your health, and be sure to contact your doctor if: Your blood pressure measures 140/90 or higher at least 2 times. That means the top number is 140 orhigher or the bottom number is 90 or higher, or both. You think you may be having side effects from your blood pressure medicine. Your blood pressure is usually normal, but it goes above normal at least 2 times. Where can you learn more? Log into your personal health record on [email or web address] and enter X567 in the Education box to learn more about High Blood Pressure: Care Instructions. Current as of: May 31, 2016 Content Version: 11.2 3849-7649 [facility]. Care instructions adapted under license by your healthcare professional. If you have questions about a medical condition or this instruction, always ask your healthcare professional. [facility] disclaims any warranty or liability for your use of this information. Problem List Items Addressed This Visit Cardiovascular and Mediastinum Hypertension Losartan 50 mg once a day. DASH diet. Goal BP < 130/80. Other Overweight (BMI 25.0-29.9) Start with 1 tablet in am and after 1 week increase to one tablet twice a day. Pain of left thumb Injected the left thumb with 20 mg of Kenalog an daoubt 3 ml of Marcaine 0.25%. Relevant Medications triamcinolone acetonide (KENALOG-40) injection 20 mg (Start on 11/21/2017 10:00 AM) bupivacaine (PF) (MARCAINE) 0.25 % (2.5 mg/mL) injection 7.5 mg (Start on 11/21/2017 10:00 AM) in this encounter* Patient Instructions - Alberto Pedersen MD - 05/16/2017 4:56 PM EDT Formatting of this note may be different from the original. Problem List Items Addressed This Visit Endocrine Hypothyroidism (acquired) Relevant Medications triamcinolone acetonide (KENALOG-40) injection 20 mg (Start on 05/16/2017 5:45 PM) Other Relevant Orders TSH with Reflex Free T4 Other Vitamin D deficiency Relevant Orders Vitamin D 1,25 Dihydroxy Basic Metabolic Panel Iron deficiency - Primary Continue the excellent 4 per day and you will not need the infusion. Resume the B12 injections monthly. Relevant Medications ferrous sulfate 325 (65 FE) MG tablet Other Relevant Orders CBC and Differential Pain of left thumb INjeciton today with 20 mg of kenalog and 2 cc of Lidocaine. Relevant Medications triamcinolone acetonide (KENALOG-40) injection 20 mg (Start on 05/16/2017 5:45 PM) lidocaine 10 mg/mL (1 %) injection 2 mL (Start on 05/16/2017 5:45 PM) in this encounter* Patient Instructions - Alberto Pedersen MD - 05/19/2018 9:03 AM EDT Formatting of this note may be different from the original. Problem List Items Addressed This Visit Musculoskeletal and Integument Arthritis of carpometacarpal (CMC) joint of left thumb Injected the left thumb with 0.5 ml of Kenalog or 20 mg with 3 cc of 1% Lidocaine for adequate effect. 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 Osteoarthritis of carpometacarpal (CMC) joint of right thumb Injected the right thumb with 0.5 ml of Kenalog or 20 mg with 3 cc of 1% Lidocaine for adequate effect. in this encounter* Patient Instructions* Alberto Pedersen MD - 12/12/2018 8:34 AM EST Problem List Items Addressed This Visit Nervous and Auditory Sciatica YOu hip and buttock pain are related to the nerve of the sciatic and most lieky related to inflammation related to the bladder infection. Genitourinary Cystitis Need ot increase water intake and will treat the infection with Bactrim. Relevant Medications sulfamethoxazole-trimethoprim (BACTRIM,SEPTRA) 400-80 mg per tablet fluconazole (DIFLUCAN) 150 MG tablet Other Obesity, Class I, BMI 30-34.9 Lorcaserin 10 mg twice a day and then re evaluate in 12 weeks Relevant Medications lorcaserin 10 mg Tab Other Visit Diagnoses Urinary tract infection with hematuria, site unspecified - Primary Relevant Medications sulfamethoxazole-trimethoprim (BACTRIM,SEPTRA) 400-80 mg per tablet Other Relevant Orders Urine Aerobic Culture Arthralgia of hip, unspecified laterality Relevant Orders POC Urinalysis Dipstick (Completed) in this encounter* Patient Instructions* Ana M Osorio CNP - 03/15/2019 4:00 PM EDT Problem List Items Addressed This Visit Endocrine Hypothyroidism (acquired) Last TSH was 2.40, this is within normal range, will refill. Relevant Medications levothyroxine (SYNTHROID, LEVOTHROID) 112 MCG tablet Musculoskeletal and Integument Arthritis of carpometacarpal (CMC) joint of left thumb You have been getting joint injections for over 10 years. I think we need to do xrays of your handsand if it comes back with arthritis I am sending you to a specialist for possible thumb joint replacements. Will order Meloxicam once a day, take at bedtime. Do not take Ibuprofen or other NSAIDS while on this medication. Take it with food. Relevant Orders XR Hand Left 3+ Views (Standard) Osteoarthritis of carpometacarpal (CMC) joint of right thumb You have been getting joint injections for over 10 years. I think we need to do xrays of your handsand if it comes back with arthritis I am sending you to a specialist for possible thumb joint replacements. Relevant Orders XR Hand Right 3+ Views (Standard) Other Obesity, Class I, BMI 30-34.9 Eat meat, vegetables, nuts and seeds, some fruit, very little starch and absolutely no sugar. If you can grow it or kill it, then that's what you should be eating..... Chicken, turkey, fish pork, beef, ALL vegetables and fruit. If it is processed or you can not pronounce the ingredients, do not eat it! Shop the outside perimeter of the grocery store. Listen to your body, if you are hungry all the time you may need to increase your intake of healthyveggies and small healthy snacks. Eat whole, healthy foods and you won't need to count calories. Increase your activity level; the more you move your body the healthier you will be and the better you will feel! Diet and Exercise is not a fad, it really works! documented in this encounter* Patient Instructions* Ana M Osorio CNP - 05/21/2019 9:31 AM EDT Problem List Items Addressed This Visit Other Preoperative evaluation to rule out surgical contraindication - Primary According to RCRI patient is low risk for surgery. Continue medications as prescribed. Anxiety Go back to 20 mg of Celexa daily. I am going to add Buspar 10 mg twice daily to help take the edge off and help with anxiety symptoms. You have a lot on your plate right now, let me know if this medication is not helping or symptoms get worse. If any referrals were placed at the time of your visit please allow 2 weeks for processing. If you haven't heard from anyone within 2 weeks please contact my office so we can look into the status of your referral. If you were given any labs today please ensure they are completed according to the directions given. Once labs are completed please allow 1-2 weeks for us to receive the results, review them, and letyou know what steps, if any, are needed next. If you haven't heard from us after that please call to inquire. If labs were ordered to be done PRIOR to your next visit we will discuss the results at the time ofyour office visit. If any procedures or imaging studies were ordered that must be prior authorized please give us 2 weeks to get them approved. Once approved someone should call you to schedule them or give you a date and time that they were scheduled for. If you haven't heard anything within 2 weeks of the office visit please call the office so we can look into their status. documented in this encounter* Patient Instructions* Ana M Osorio CNP - 05/20/2020 1:40 PM EDT Problem List Items Addressed This Visit Respiratory Frontal sinusitis - Primary Relevant Medications amoxicillin-clavulanate (AUGMENTIN) 875-125 mg per tablet methylPREDNISolone (MEDROL DOSEPACK) 4 mg tablet If any referrals were placed at the time of your visit please allow 2 weeks for processing. If you haven't heard from anyone within 2 weeks please contact my office so we can look into the status of your referral. If you were given any labs today please ensure they are completed according to the directions given. Once labs are completed please allow 1-2 weeks for us to receive the results, review them, and letyou know what steps, if any, are needed next. If you haven't heard from us after that please call to inquire. If labs were ordered to be done PRIOR to your next visit we will discuss the results at the time ofyour office visit. If any procedures or imaging studies were ordered that must be prior authorized please give us 2 weeks to get them approved. Once approved someone should call you to schedule them or give you a date and time that they were scheduled for. If you haven't heard anything within 2 weeks of the office visit please call the office so we can look into their status. Customer Service/Billing Questions: [phone] MyChart Assistance: [phone] or [phone] Financial Assistance: [phone] or [phone] As of October 29, 2019 my schedule will be changing: Tuesday 7 am to 5 pm Tuesday 7 am to 5 pm Tuesday closed 7 am to 5 pm Tuesday 7 am to 1 pm documented in this encounter* Patient Instructions* Ana M Osorio CNP - 12/26/2020 9:24 AM EST Problem List Items Addressed This Visit Endocrine Hypothyroidism (acquired) Relevant Orders Comprehensive Metabolic Panel (Completed) Lipid Panel (Completed) TSH with Reflex Free T4 (Completed) Cardiovascular and Mediastinum Hypertension Relevant Orders CBC and Differential (Completed) Comprehensive Metabolic Panel (Completed) Other Visit Diagnoses Encounter for biometric screening - Primary Relevant Orders CBC and Differential (Completed) Comprehensive Metabolic Panel (Completed) Lipid Panel (Completed) TSH with Reflex Free T4 (Completed) Nicotine and Metabolites, Blood (Completed) Hemoglobin A1c (Completed) If any referrals were placed at the time of your visit please allow 2 weeks for processing. If you haven't heard from anyone within 2 weeks please contact my office so we can look into the status of your referral. If you were given any labs today please ensure they are completed according to the directions given. Once labs are completed please allow 1-2 weeks for us to receive the results, review them, and letyou know what steps, if any, are needed next. If you haven't heard from us after that please call to inquire. If labs were ordered to be done PRIOR to your next visit we will discuss the results at the time ofyour office visit. If any procedures or imaging studies were ordered that must be prior authorized please give us 2 weeks to get them approved. Once approved someone should call you to schedule them or give you a date and time that they were scheduled for. If you haven't heard anything within 2 weeks of the office visit please call the office so we can look into their status. Customer Service/Billing Questions: [phone] MyChart Assistance: [phone] or [phone] Financial Assistance: [phone] or [phone] documented in this encounter Assessments Diagnosis Hypertension, unspecified ty pe Overweight (BMI 25.0-29.9) Overweight Lumbar back pain Lumbago Diagnosis Pain of left thumb Essential hypertension Unspecified essential hypertension Overweight (BMI 25.0-29.9) Overweight Diagnosis Iron deficiency - Primary Disorders of iron metabolism Pain of left thumb Vitamin D deficiency Hypothyroidism (acquired) Unspecified hypothyroidism Diagnosis Arthritis of carpometacarpal (CMC) joint of left thumb Primary osteoarthritis of fi rst carpometacarpal joint of right hand Diagnosis Urinary tract infection with hematuria, site unspecified- Primary Arthralgia of hip, unspecified laterality Sciatica of right side Cystitis Unspecified cystitis Obesity, Class I, BMI 30-34.9 Diagnosis Hypothyroidism (acquired) Unspecified hypothyroidism Obesity, Class I, BMI 30-34.9 Arthritis of carpometacarpal (CMC) joint of left thumb Primary osteoarthritis of first carpometacarpal joint of right hand Diagnosis Preoperative evaluation to rule out surgical contraindication- Primary Anxiety Anxiety state, unspecified Diagnosis Acute non-recurrent frontal sinusitis Diagnosis Laceration of left index finger with tendon involvement, initial encounter- Primary Laceration of left index finger with tendon involvement- Primary Diagnosis Laceration of left index finger with tendon involvement, initial encounter- Primary Laceration of left index finger with tendon involvement- Primary Laceration of left index finger with tendon involvement, initial encounter Diagnosis Extensor tendon laceration of finger with open wound, initial encounter- Primary Laceration of left index finger with tendon involvement- Primary Laceration of left index finger with tendon involvement, initial encounter Diagnosis Laceration of left index finger with tendon involvement, initial encounter Diagnosis Hypothyroidism (acquired)- Primary Unspecified hypothyroidism Essential hypertension Unspecified essential hypertension Vitamin D deficiency Wellness examination Diagnosis Hyperlipidemia LDL goal <100- Primary Other and unspecified hyperlipidemia Diagnosis Encounter for biometric screening- Primary Hypothyroidism (acquired) Unspecified hypothyroidism Essential hypertension Unspecified essential hypertension Diagnosis Laceration of left index finger with tendon involvement, subsequent encounter- Primary Diagnosis Laceration of left index finger with tendon involvement, subsequent encounter- Primary Diagnosis Contusion of right lung, initial encounter- Primary Chondromalacia, patella, right Sprain of other ligament of right knee, initial encounter Summary Purpose Family History No Family History Records FoundNo Family History Records FoundNo Family History Records FoundNo Family History Records FoundNo Family History Records FoundNo Family History Records FoundNo Family History Records FoundNo Family History Records FoundNo Family History Records FoundNo Family History Records FoundNo Family History Records FoundNo Family History Records Found Advance Directives No Advanced Directives Records FoundDocuments on File Type Date Recorded Patient Drilling Manager Expl anation Advance Directives and Living Will Documents on File Type Date Recorded Patient Drilling Manager Expl anation Advance Directives and Livin g Will 12/19/2020 8:56 AM Documents on File Type Date Recorded Patient Drilling Manager Expl anation Advance Directives and Livin g Will 12/19/2020 8:56 AM Documents on File Type Date Recorded Patient Drilling Manager Expl anation Advance Directive(s) 04/30/2016 10:22 PM Documents on File Type Date Recorded Patient Drilling Manager Expl anation Advance Directives and Livin g Will 07/05/2021 8:56 AM Documents on File Type Date Recorded Patient Drilling Manager Expl anation Advance Directives and Livin g Will 07/05/2021 8:56 AM Documents on File Type Date Recorded Patient Drilling Manager Expl anation Advance Directives and Livin g Will 12/02/2021 7:35 AM Documents on File Type Date Recorded Patient Drilling Manager Expl anation Advance Directives and Livin g Will 12/02/2021 7:35 AM Documents on File Type Date Recorded Patient Drilling Manager Expl anation Advance Directives and Livin g Will 01/07/2022 2:59 PM Documents on File Type Date Recorded Patient Drilling Manager Expl anation Advance Directives and Livin g Will 02/17/2022 2:59 PM History of Present Illness * Marcela Reyes LPN - 12/13/2018 8:47 AM EST PA completed for [employer]. Awaiting response from insurance. in this encounter* Alberto Pedersen MD - 12/12/2018 7:38 AM EST Subjective Patient ID: Reema Ventura is a 48 y.o. female. Chief Complaint Patient presents with Hip Pain HPI interval visit: Hip pain: Patient is noticed increased hip pain for the last several weeks increasing pain with radiation down the right side. States that she cannot find a comfortable position. Denies any loss of sensation. She has had problems with this for some time. Pain getting out of the chair pain doing a deep squat. Prior x-ray studies in the past have revealed presence of positive disease of the spine. L4-L5: There is disc degeneration with mild diffuse disc bulge and superimposed left paracentral disc extrusion with inferior migration best seen on image 12 of series 4 and image 21 of series 6, slightly improved since the prior exam. This causes mass effect on the left L5 nerve root in the left lateral recess. L5-S1: There is disc degeneration with diffuse disc bulge and facet arthropathy causing moderate to severe left foraminal stenosis without significant canal narrowing. Allergies Allergen Reactions Cats Claw (Uncaria [Cat's Claw (Uncaria Tomentosa)] Itching Sneeze Grass Pollen Mold The following portions of the patient's history were reviewed and updated as appropriate: allergies, current medications, past family history, past medical history, past social history, past surgicalhistory and problem list. Review of Systems Constitutional: Negative for chills, diaphoresis, fever and unexpected weight change. HENT: Positive for congestion. Negative for dental problem, hearing loss, mouth sores, postnasal drip, rhinorrhea, tinnitus, trouble swallowing and voice change. Eyes: Negative for pain, discharge and visual disturbance. Respiratory: Negative for cough, chest tightness, shortness of breath and wheezing. Cardiovascular: Negative for chest pain, palpitations and leg swelling. Gastrointestinal: Negative for abdominal distention, abdominal pain, blood in stool, constipation, diarrhea, nausea and vomiting. Endocrine: Negative for cold intolerance, heat intolerance, polydipsia, polyphagia and polyuria. Genitourinary: Negative for decreased urine volume, difficulty urinating, dysuria, enuresis, flank pain, frequency, hematuria and urgency. Musculoskeletal: Positive for arthralgias and gait problem. Negative for joint swelling and myalgias. Skin: Negative for color change and rash. Allergic/Immunologic: Positive for environmental allergies. Negative for food allergies. Neurological: Negative for dizziness, tremors, weakness, numbness and headaches. Hematological: Negative for adenopathy. Does not bruise/bleed easily. Psychiatric/Behavioral: Positive for dysphoric mood. Negative for hallucinations and sleep disturbance. The patient is not nervous/anxious. Objective Vitals: 12/12/18 0754 BP: 116/82 BP Location: Left arm Patient Position: Sitting BP Cuff Size: Adult Pulse: 67 Resp: 16 Temp: 98 F (36.7 C) TempSrc: Oral SpO2: 97% Weight: 99.8 kg (220 lb) Height: 5' 11 Estimated body mass index is 30.68 kg/m as calculated from the following: Height as of this encounter: 5' 11 . Weight as of this encounter: 99.8 kg (220 lb). Physical Exam Constitutional: She is oriented to person, place, and time. She appears well- developed and well-nourished. No distress. HENT: Head: Normocephalic and atraumatic. Right Ear: External ear normal. Left Ear: External ear normal. Nose: Nose normal. Mouth/Throat: Oropharynx is clear and moist. No oropharyngeal exudate. Eyes: Pupils are equal, round, and reactive to light. EOM are normal. Right eye exhibits no discharge. Left eye exhibits no discharge. No scleral icterus. Neck: Normal range of motion. Neck supple. No JVD present. No tracheal deviation present. No thyromegaly present. Cardiovascular: Normal rate, regular rhythm and normal heart sounds. No murmur heard. Pulmonary/Chest: Effort normal and breath sounds normal. No stridor. Abdominal: Soft. There is no tenderness. Musculoskeletal: She exhibits no edema or tenderness. Flexion and internal and external rotation of the right and left hip without increase in discomfort. There is pain over bilateral I-S region and down into the upper buttock. Lymphadenopathy: She has no cervical adenopathy. Neurological: She is alert and oriented to person, place, and time. No cranial nerve deficit. Skin: Skin is warm and dry. No rash noted. Psychiatric: She has a normal mood and affect. Her behavior is normal. Judgment and thought contentnormal. Assessment/Plan: Problem List Items Addressed This Visit Nervous and Auditory Sciatica Your hip and buttock pain are related to the nerve of the sciatic and most lieky related to inflammation related to the bladder infection. Genitourinary Cystitis Need ot increase water intake and will treat the infection with Bactrim. Relevant Medications sulfamethoxazole-trimethoprim (BACTRIM,SEPTRA) 400-80 mg per tablet Other Obesity, Class I, BMI 30-34.9 Lorcaserin 10 mg twice a day and then re evaluate in 12 weeks Relevant Medications lorcaserin 10 mg Tab Other Visit Diagnoses Urinary tract infection with hematuria, site unspecified - Primary Relevant Medications sulfamethoxazole-trimethoprim (BACTRIM,SEPTRA) 400-80 mg per tablet Other Relevant Orders Urine Aerobic Culture Arthralgia of hip, unspecified laterality Relevant Orders POC Urinalysis Dipstick (Completed) For any new medications prescribed today, patient was educated about indications for the medication, how to take the medication and potential side effects of the medications. in this encounter* Ana M Osorio CNP - 03/19/2019 11:52 AM EDT Subjective Patient ID: Reema Ventura is a 49 y.o. female. Patient is here today for a routine interval visit for hip pain and chronic issues. Patient states her hip pain is not bothering her, she states her bilateral thumb joint pain is much more concerning. Hypothyroid: Patient is in need of refills of levothyroxine, she is currently on 112 mcg a day. HerLab Results Component Value Date TSH 2.40 12/27/2018 Hypothyroidism: Patient presents for evaluation of thyroid function. Symptoms consist of denies fatigue, weight changes, heat/cold intolerance, bowel/skin changes or CVS symptoms. Symptoms have present for several years. Talked with patient at length about making healthy food choices. Encouraged patient to cut out all processed foods and sugars and increase activity level. Bilateral thumb pain: Patient states she has not had xrays of her bilateral thumb joints in over 3-4 years. She has been getting steroid injections in each joint intermittently over the past 10 yearsfor chronic pain. She has lost ground layer strength and it is very painful if she bumps the joints. She iswilling to be seen by a hand specialist. The following portions of the patient's history were reviewed and updated as appropriate: allergies, current medications, past family history, past medical history, past social history, past surgicalhistory and problem list. Past Medical History: Diagnosis Date Arthritis Lumbar back pain UTI (urinary tract infection) 08/08/2017 [facility] Past Surgical History: Procedure Laterality Date ANKLE SURGERY Left 09/04/2018 Left Ankle OS Trigonum excision-Dr Meza GASTRIC BYPASS 2007 TONSILLECTOMY TUBAL LIGATION 2000 Family History Problem Relation Age of Onset Hypertension Mother Heart disease Mother Cancer Mother Stroke Mother Clotting disorder Mother Hypertension Father Diabetes Father Heart disease Father Cancer Father Stroke Father Clotting disorder Father Social History Tobacco Use Smoking status: Never Smoker Smokeless tobacco: Never Used Substance Use Topics Alcohol use: Yes Comment: beer/ once a month Drug use: No Patient's Medications New Prescriptions MELOXICAM (MOBIC) 15 MG TABLET Take 1 (one) tablet (15 mg total) by mouth daily . Previous Medications CETIRIZINE (ZYRTEC) 10 MG TABLET Take 1 tablet (10 mg total) by mouth daily. FLUTICASONE (FLONASE) 50 MCG/ACTUATION NASAL SPRAY Instill 1 spray into each nostril 2 (two) times a day. MELATONIN 3 MG TAB Take 3 mg by mouth as needed. Modified Medications Modified Medication Previous Medication CITALOPRAM (CELEXA) 20 MG TABLET citalopram (CELEXA) 20 MG tablet Take 1 (one) tablet (20 mg total) by mouth 2 (two) times a day . TAKE 1 TABLET BY MOUTH TWICE A DAY LEVOTHYROXINE (SYNTHROID, LEVOTHROID) 112 MCG TABLET levothyroxine (SYNTHROID, LEVOTHROID) 112 MCG tablet Take 1 (one) tablet (112 mcg total) by mouth daily . TAKE 1 TABLET BY MOUTH ONCE A DAY Discontinued Medications LORCASERIN 10 MG TAB Take 1 (one) tablet (10 mg total) by mouth 2 (two) times a day (Days supply per fill: 30) . SULFAMETHOXAZOLE-TRIMETHOPRIM (BACTRIM,SEPTRA) 400-80 MG PER TABLET Take 1 (one) tablet by mouth 2 (two) times a day . Allergies Allergen Reactions Cats Claw (Uncaria [Cat's Claw (Uncaria Tomentosa)] Itching Sneeze Grass Pollen Mold Review of Systems Review of Systems Constitutional: Negative for activity change, appetite change, fatigue and unexpected weight change. HENT: Negative for congestion, hearing loss, postnasal drip, rhinorrhea, sinus pressure, sinus painand sneezing. Eyes: Negative for photophobia and visual disturbance. Respiratory: Negative for cough, chest tightness, shortness of breath and wheezing. Cardiovascular: Negative for chest pain and palpitations. Gastrointestinal: Negative for constipation, diarrhea, nausea and vomiting. Endocrine: Negative for cold intolerance and heat intolerance. Genitourinary: Negative for dysuria, frequency and urgency. Musculoskeletal: Positive for arthralgias and joint swelling. Negative for back pain and myalgias. Skin: Negative. Neurological: Negative for dizziness, light-headedness and headaches. Hematological: Negative. Psychiatric/Behavioral: Negative for dysphoric mood and sleep disturbance. The patient is not nervous/anxious. Vitals: 03/15/19 1514 BP: 122/78 BP Location: Left arm Patient Position: Sitting BP Cuff Size: Adult Pulse: 68 Resp: 18 Temp: 98.1 F (36.7 C) TempSrc: Oral SpO2: 98% Weight: 100.2 kg (221 lb) Height: 5' 11 Body mass index is 30.82 kg/m . Physical Exam Physical Exam Constitutional: She is oriented to person, place, and time. She appears well- developed and well-nourished. HENT: Right Ear: External ear normal. Left Ear: External ear normal. Nose: Nose normal. Mouth/Throat: Oropharynx is clear and moist and mucous membranes are normal. Eyes: Conjunctivae, EOM and lids are normal. Neck: Normal range of motion and full passive range of motion without pain. No JVD present. Cardiovascular: Normal rate, regular rhythm and normal heart sounds. No murmur heard. Pulmonary/Chest: Effort normal and breath sounds normal. Musculoskeletal: Left hand: She exhibits decreased range of motion and bony tenderness. Hands: Neurological: She is alert and oriented to person, place, and time. Skin: Skin is warm and dry. Psychiatric: She has a normal mood and affect. Her speech is normal and behavior is normal. Assessment/Plan Problem List Items Addressed This Visit Endocrine Hypothyroidism (acquired) Last TSH was 2.40, this is within normal range, will refill. Relevant Medications levothyroxine (SYNTHROID, LEVOTHROID) 112 MCG tablet Musculoskeletal and Integument Arthritis of carpometacarpal (CMC) joint of left thumb You have been getting joint injections for over 10 years. I think we need to do xrays of your handsand if it comes back with arthritis I am sending you to a specialist for possible thumb joint replacements. Will order Meloxicam once a day, take at bedtime. Do not take Ibuprofen or other NSAIDS while on this medication. Take it with food. Relevant Orders XR Hand Left 3+ Views (Standard) Osteoarthritis of carpometacarpal (CMC) joint of right thumb You have been getting joint injections for over 10 years. I think we need to do xrays of your handsand if it comes back with arthritis I am sending you to a specialist for possible thumb joint replacements. Relevant Orders XR Hand Right 3+ Views (Standard) Other Obesity, Class I, BMI 30-34.9 Eat meat, vegetables, nuts and seeds, some fruit, very little starch and absolutely no sugar. If you can grow it or kill it, then that's what you should be eating..... Chicken, turkey, fish pork, beef, ALL vegetables and fruit. If it is processed or you can not pronounce the ingredients, do not eat it! Shop the outside perimeter of the grocery store. Listen to your body, if you are hungry all the time you may need to increase your intake of healthyveggies and small healthy snacks. Eat whole, healthy foods and you won't need to count calories. Increase your activity level; the more you move your body the healthier you will be and the better you will feel! Diet and Exercise is not a fad, it really works! No data recorded Goals Blood Pressure < 130/80 High blood pressure makes your heart work too hard. It can cause heart attack, stroke and kidney disease. HEMOGLOBIN A1C < 7.0 Blood sugar levels outside the normal range may be an indicator of diabetes. If any referrals were placed at today's visit the patient was instructed to call the office if theyhavn't heard anything about the referral within 2 weeks of today's visit. For any new medications prescribed today, patient was educated about indications for the medication, how to take the medication and potential side effects of the medications. documented in this encounter* Ana M Osorio CNP - 05/21/2019 9:15 AM EDT Subjective Patient ID: Reema Ventura is a 49 y.o. female. Patient is here today for presurgical clearance. Presurgical clearance: Patient is going to have surgery on her left foot 06/18/[address] Chawla sosa. 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 She is scheduled to have an open subtalar joint posterior ankle arthrotomy. This surgery is planned to be under general anesthesia. Patient states she is excited to have this procedure done because she has significant pain in the joint on a daily basis. Patient has had 4 surgical procedures in the past and has had no issues. Most significant surgery was gastric bypass in 2006. Anxiety: Patient is currently on 20 mg of Celexa, she tried bumping it up to 30 mg and she did not like how it made her feel. She states she felt like it was too strong and it made her feel agitated.She states with all the stress in her life she needs something to help with daily anxiety and sleep. At this time she is dealing with her two kids who are having a lot of anxiety related to their dadbeing dx with stage 4 metastatic lung cancer. Both of her children have been seen in the past 2 weeks for stress reaction. The following were reviewed and updated as appropriate for today's visit: allergies, current medications, past family history, past medical history, past social history, past surgical history and problem list. Patient's Medications New Prescriptions BUSPIRONE (BUSPAR) 10 MG TABLET Take 1 (one) tablet (10 mg total) by mouth 2 (two) times a day . Previous Medications CETIRIZINE (ZYRTEC) 10 MG TABLET Take 1 tablet (10 mg total) by mouth daily. FLUTICASONE (FLONASE) 50 MCG/ACTUATION NASAL SPRAY Instill 1 spray into each nostril 2 (two) times a day. LEVOTHYROXINE (SYNTHROID, LEVOTHROID) 112 MCG TABLET Take 1 (one) tablet (112 mcg total) by mouth daily . MELATONIN 3 MG TAB Take 3 mg by mouth as needed. MELOXICAM (MOBIC) 15 MG TABLET Take 1 (one) tablet (15 mg total) by mouth daily . SPRIX 15.75 MG/SPRAY SPRY Instill 15.75 mg into each nostril daily . Modified Medications Modified Medication Previous Medication CITALOPRAM (CELEXA) 20 MG TABLET citalopram (CELEXA) 20 MG tablet Take 1 (one) tablet (20 mg total) by mouth daily . Take 1 (one) tablet (20 mg total) by mouth 2 (two) times a day . Discontinued Medications No medications on file Review of Systems Review of Systems Constitutional: Negative for activity change, appetite change, fatigue and unexpected weight change. HENT: Negative for dental problem, hearing loss and trouble swallowing. Eyes: Negative for visual disturbance. Respiratory: Negative for cough, chest tightness and shortness of breath. Cardiovascular: Negative for chest pain and palpitations. Musculoskeletal: Positive for arthralgias. Negative for gait problem. Pain in left foot Skin: Negative. Psychiatric/Behavioral: Positive for decreased concentration and dysphoric mood. Negative for agitation. The patient is nervous/anxious. Vitals: 05/21/19 0846 BP: 122/81 BP Location: Right arm Patient Position: Sitting BP Cuff Size: Adult Pulse: 77 Resp: 18 Temp: 97.8 F (36.6 C) TempSrc: Oral SpO2: 99% Weight: 101.6 kg (224 lb) Height: 5' 11 Body mass index is 31.24 kg/m . Physical Exam Physical Exam Constitutional: She is oriented to person, place, and time. She appears well- developed and well-nourished. HENT: Right Ear: External ear normal. Left Ear: External ear normal. Nose: Nose normal. Mouth/Throat: Oropharynx is clear and moist and mucous membranes are normal. Eyes: Conjunctivae, EOM and lids are normal. Neck: Normal range of motion. Cardiovascular: Normal rate, regular rhythm and normal heart sounds. No murmur heard. Pulmonary/Chest: Effort normal and breath sounds normal. Musculoskeletal: Normal gait Neurological: She is alert and oriented to person, place, and time. GCS eye subscore is 4. GCS verbal subscore is 5. GCS motor subscore is 6. Skin: Skin is warm and dry. Psychiatric: She has a normal mood and affect. Her speech is normal and behavior is normal. No data recorded Assessment/Plan Problem List Items Addressed This Visit Other Preoperative evaluation to rule out surgical contraindication - Primary According to RCRI patient is low risk for surgery. Continue medications as prescribed. Anxiety Go back to 20 mg of Celexa daily. I am going to add Buspar 10 mg twice daily to help take the edge off and help with anxiety symptoms. You have a lot on your plate right now, let me know if this medication is not helping or symptoms get worse. Preventative Goals Goals Blood Pressure < 130/80 High blood pressure makes your heart work too hard. It can cause heart attack, stroke and kidney disease. HEMOGLOBIN A1C < 7.0 Blood sugar levels outside the normal range may be an indicator of diabetes. For any new medications prescribed today, patient was educated about indications for the medication, how to take the medication and potential side effects of the medications. Ana M Osorio CNP documented in this encounter* Ana M Osorio CNP - 05/20/2020 1:25 PM EDT Subjective Patient ID: Reema Ventura is a 50 y.o. female. Sinus Problem This is a new problem. Episode onset: 3 weeks. The problem has been gradually worsening since onset. There has been no fever. Her pain is at a severity of 9/10. Associated symptoms include congestion, coughing, ear pain, headaches, shortness of breath, sinus pressure, sneezing, a sore throat and swollen glands. Pertinent negatives include no chills, diaphoresis, hoarse voice or neck pain. Past treatments include saline sprays (albuterol, mucinex DM, nasal saline). The treatment provided mild relief. The following were reviewed and updated as appropriate for today's visit: allergies, current medications, past family history, past medical history, past social history, past surgical history and problem list. Patient's Medications New Prescriptions AMOXICILLIN-CLAVULANATE (AUGMENTIN) 875-125 MG PER TABLET Take 1 (one) tablet by mouth 2 (two) times a day . METHYLPREDNISOLONE (MEDROL DOSEPACK) 4 MG TABLET follow package directions . Previous Medications BENZONATATE (TESSALON) 100 MG CAPSULE Take 1 (one) capsule to 2 (two) capsules (100-200 mg total) by mouth 3 (three) times a day as needed for cough . CETIRIZINE (ZYRTEC) 10 MG TABLET Take 1 tablet (10 mg total) by mouth daily. CITALOPRAM (CELEXA) 20 MG TABLET Take 1 (one) tablet (20 mg total) by mouth daily . FLUTICASONE (FLONASE) 50 MCG/ACTUATION NASAL SPRAY Instill 1 spray into each nostril 2 (two) times a day. MELATONIN 3 MG TAB Take 3 mg by mouth as needed. SPRIX 15.75 MG/SPRAY SPRY Instill 15.75 mg into each nostril daily as needed . Modified Medications Modified Medication Previous Medication LEVOTHYROXINE (SYNTHROID, LEVOTHROID) 137 MCG TABLET levothyroxine (SYNTHROID, LEVOTHROID) 137 MCG tablet Take 1 (one) tablet (137 mcg total) by mouth daily . Take 1 (one) tablet (137 mcg total) by mouth daily . Discontinued Medications AMOXICILLIN-CLAVULANATE (AUGMENTIN) 875-125 MG PER TABLET Take 1 (one) tablet by mouth 2 (two) times a day . BUSPIRONE (BUSPAR) 10 MG TABLET Take 1 (one) tablet (10 mg total) by mouth 2 (two) times a day . Review of Systems Review of Systems Constitutional: Negative for chills and diaphoresis. HENT: Positive for congestion, ear pain, postnasal drip, rhinorrhea, sinus pressure, sinus pain, sneezing and sore throat. Negative for hoarse voice. Respiratory: Positive for cough, shortness of breath and wheezing. Negative for chest tightness. Musculoskeletal: Negative for neck pain. Neurological: Positive for headaches. Negative for dizziness, weakness and light-headedness. Vitals: 05/20/20 1242 BP: 127/87 BP Location: Right arm Patient Position: Sitting BP Cuff Size: X-large Adult Pulse: 77 Resp: 18 Temp: 98.9 F (37.2 C) TempSrc: Oral SpO2: 97% Weight: 99.9 kg (220 lb 4.8 oz) Height: 5' 11 Body mass index is 30.73 kg/m . Physical Exam Physical Exam Constitutional: She is oriented to person, place, and time. She appears well- developed and well-nourished. HENT: Right Ear: A middle ear effusion is present. Left Ear: A middle ear effusion is present. Nose: Mucosal edema and rhinorrhea present. Right sinus exhibits maxillary sinus tenderness and frontal sinus tenderness. Left sinus exhibits maxillary sinus tenderness and frontal sinus tenderness. Mouth/Throat: Uvula is midline and mucous membranes are normal. Posterior oropharyngeal erythema present. Cardiovascular: Normal rate, regular rhythm and normal heart sounds. Pulmonary/Chest: Effort normal. She has decreased breath sounds. She has rhonchi. Musculoskeletal: Normal range of motion. Lymphadenopathy: Head (right side): Tonsillar adenopathy present. No submandibular adenopathy present. Head (left side): Tonsillar adenopathy present. No submandibular adenopathy present. Neurological: She is alert and oriented to person, place, and time. Skin: Skin is warm and dry. Psychiatric: She has a normal mood and affect. Her behavior is normal. Assessment/Plan Problem List Items Addressed This Visit Respiratory Frontal sinusitis - Primary Relevant Medications amoxicillin-clavulanate (AUGMENTIN) 875-125 mg per tablet methylPREDNISolone (MEDROL DOSEPACK) 4 mg tablet Preventative Goals Goals Blood Pressure < 130/80 High blood pressure makes your heart work too hard. It can cause heart attack, stroke and kidney disease. HEMOGLOBIN A1C < 7.0 Blood sugar levels outside the normal range may be an indicator of diabetes. For any new medications prescribed today, patient was educated about indications for the medication, how to take the medication and potential side effects of the medications. Ana M Osorio CNP documented in this encounter* Ananya Madrigal MD - 12/18/2020 5:21 PM EST Dictation on: 12/18/2020 5:24 PM by: ANANYA MADRIGAL [[id number]] documented in this encounter* Ana M Osorio CNP - 12/31/2020 11:32 AM EST Subjective Patient ID: Reema Ventura is a 50 y.o. female. Patient is here today for biometric screening require by her employer. Paperwork filled out and faxed to her employer. Will order required and routine labwork. Hypothyroidism. Current symptoms: none . Patient denies change in energy level, diarrhea, heat / cold intolerance, nervousness, palpitations and weight changes. Symptoms have been well-controlled. Currently on Levothyroxine 137 mcg daily. Anxiety: Patient is currently on Celexa 20 mg daily, she has been on this medication 5+ years. She denies compliance issues, side effects, or issues with the medication. States it helps well with anxiety/depression. The following were reviewed and updated as appropriate for today's visit: allergies, current medications, past family history, past medical history, past social history, past surgical history and problem list. Patient's Medications New Prescriptions ATORVASTATIN (LIPITOR) 10 MG TABLET Take 1 (one) tablet (10 mg total) by mouth daily . ERGOCALCIFEROL (ERGOCALCIFEROL) 1,250 MCG (50,000 UNIT) CAPSULE Take 1 (one) capsule (50,000 Units total) by mouth once a week . Previous Medications CETIRIZINE (ZYRTEC) 10 MG TABLET Take 1 tablet (10 mg total) by mouth daily. CITALOPRAM (CELEXA) 20 MG TABLET Take 1 (one) tablet (20 mg total) by mouth daily . COMPOUNDED MEDICATION COMPOUNDED MEDICATION Progesterone 225 mg (clear, dye-free) Take 1 capsule PO @ HS FLUTICASONE (FLONASE) 50 MCG/ACTUATION NASAL SPRAY Instill 1 spray into each nostril 2 (two) times a day. LEVOTHYROXINE (SYNTHROID, LEVOTHROID) 137 MCG TABLET Take 1 (one) tablet (137 mcg total) by mouth daily . MELATONIN 3 MG TAB Take 3 mg by mouth as needed. Modified Medications No medications on file Discontinued Medications AMOXICILLIN-CLAVULANATE (AUGMENTIN) 875-125 MG PER TABLET Take 1 (one) tablet by mouth 2 (two) times a day . BENZONATATE (TESSALON) 100 MG CAPSULE Take 1 (one) capsule to 2 (two) capsules (100-200 mg total) by mouth 3 (three) times a day as needed for cough . CITALOPRAM (CELEXA) 20 MG TABLET every night at bedtime . DOXYCYCLINE HYCLATE (VIBRA-TABS) 100 MG TABLET FLUCONAZOLE (DIFLUCAN) 150 MG TABLET fluconazole 150 mg tablet TAKE 1 TABLET BY MOUTH ONCE REPEAT DOSE IN 3 DAYS IF YOU CONTINUE TO HAVE SYMPTOMS FOR 1 DOSE KETOROLAC (SPRIX) 15.75 MG/SPRAY SPRY 1 spray as needed LEVOTHYROXINE (SYNTHROID) 125 MCG TABLET every night at bedtime . LEVOTHYROXINE (SYNTHROID) 25 MCG TABLET every night at bedtime . Review of Systems Review of Systems Constitutional: Negative for activity change and fatigue. HENT: Negative for hearing loss. Eyes: Negative for visual disturbance. Respiratory: Negative for cough, chest tightness and shortness of breath. Cardiovascular: Negative for chest pain and palpitations. Musculoskeletal: Negative for gait problem. Skin: Negative. Psychiatric/Behavioral: Positive for dysphoric mood. Negative for agitation. The patient is nervous/anxious. Vitals: 12/26/20 0844 12/26/20 0849 12/26/20 0915 BP: (!) 147/87 (!) 141/83 136/84 BP Location: Right arm Right arm Right arm Patient Position: Sitting Sitting Sitting BP Cuff Size: X-large Adult X-large Adult X-large Adult Pulse: 89 90 Resp: 16 Temp: 97 F (36.1 C) TempSrc: Temporal SpO2: 97% Weight: 100.2 kg (221 lb) Height: 5' 11 Body mass index is 30.82 kg/m . Physical Exam Physical Exam Constitutional: She is oriented to person, place, and time. She appears well- developed and well-nourished. HENT: Right Ear: External ear normal. Left Ear: External ear normal. Nose: Nose normal. Mouth/Throat: Oropharynx is clear and moist and mucous membranes are normal. Eyes: Conjunctivae, EOM and lids are normal. Neck: Normal range of motion. Cardiovascular: Normal rate, regular rhythm and normal heart sounds. No murmur heard. Pulmonary/Chest: Effort normal and breath sounds normal. Musculoskeletal: Comments: Normal gait Neurological: She is alert and oriented to person, place, and time. GCS eye subscore is 4. GCS verbal subscore is 5. GCS motor subscore is 6. Skin: Skin is warm and dry. Patient had recent surgery on her finger from cutting with a knife through her tendon. She has pin in her finger which shows no signs of infection. Sutures around finger are well approximated with noredness, warmth, or drainage Psychiatric: She has a normal mood and affect. Her speech is normal and behavior is normal. OARRS/NARxCHECK Report Received and Assessed: No data found Date controlled substance agreement signed: No data found Date of last drug screen: No data found Functional Assessment: No data found Assessment/Plan Problem List Items Addressed This Visit Endocrine Hypothyroidism (acquired) Relevant Orders Comprehensive Metabolic Panel (Completed) Lipid Panel (Completed) TSH with Reflex Free T4 (Completed) Cardiovascular and Mediastinum Hypertension Relevant Orders CBC and Differential (Completed) Comprehensive Metabolic Panel (Completed) Other Visit Diagnoses Encounter for biometric screening - Primary Relevant Orders CBC and Differential (Completed) Comprehensive Metabolic Panel (Completed) Lipid Panel (Completed) TSH with Reflex Free T4 (Completed) Nicotine and Metabolites, Blood (Completed) Hemoglobin A1c (Completed) Preventative Goals Goals Blood Pressure < 130/80 High blood pressure makes your heart work too hard. It can cause heart attack, stroke and kidney disease. HEMOGLOBIN A1C < 7.0 Blood sugar levels outside the normal range may be an indicator of diabetes. For any new medications prescribed today, patient was educated about indications for the medication, how to take the medication and potential side effects of the medications. Ana M Osorio CNP documented in this encounter* Ananya Madrigal MD - 01/02/2021 5:09 PM EST Dictation on: 01/02/2021 5:10 PM by: ANANYA MADRIGAL [[id number]] documented in this encounter* Ananya Madrigal MD - 01/10/2021 7:18 AM EDT HISTORY OF PRESENT ILLNESS Reema comes in today for followup of her left zone 1 extensor tendon laceration, status post repair. The patient had a DIP joint percutaneous pinning, also. She is now 3 weeks out. She had a little bit of area of the wound she was concerned. We brought her in a week here early to do a checkup on it. I did place her on an oral antibiotic as well as had her do differential local wound care. Today, she comes in today, states it is much better. PHYSICAL EXAMINATION At this time, wounds are clean, dry, intact. No erythema. No lymphangitis. No cellulitis. No wound drainage. Pin sites intact. IMAGING X-ray examination of the left index finger shows no change in the alignment. IMPRESSION Three weeks, left index finger zone 1 extensor tendon repair. PLAN At this point in time, I will see her in 1 week for pin removal and will begin range of motion exercises at that time. documented in this encounter* Ananya Madrigal MD - 01/30/2021 6:02 PM EDT Dictation on: 01/30/2021 6:04 PM by: ANANYA MADRIGAL [[id number]] documented in this encounter Reason for Referral Status Reason Specialty Diagnoses / Procedures Referred By Contact Referred To Contact Authorized Diagnoses Obesity, Class I, BMI 30-34.9 Alberto Pedersen MD [address] [place], [place] [id number] Status Reason Specialty Diagnoses / Procedures Referred By Contact Referred To Contact Closed Ana M Osorio CNP [address] [address] Status Reason Specialty Diagnoses / Procedures Referred By Contact Referred To Contact Closed Diagnoses Hyperlipidemia LDL goal <100 Ana M Osorio CNP [address] [phone] Specialty Diagnoses / Procedures Referred By Contac t Referred To Contact Pulmonology Diagnoses Daytime sleepiness Snoring Ana M Osorio CNP [address] [place] [address] [facility] [address] [place] [address] Referral ID Status Reason Start Date Expiration Date V isits Requested Visits Authorized [id number] Authorized 11/18/2021 11/18/2022 1 1 Specialty Diagnoses / Procedures Referred By Contac t Referred To Contact Nutrition Diagnoses S/P bariatric surgery BMI 29.0-29.9,adult Gonzalez, Kvng Arreola MD [address] [facility] [address] [place] [address] [facility] Nutrition [facility] [address] [place] [address] Referral ID Status Reason Start Date Expiration Date Visits Requested Visits Authorized [id number] Authorized Specialty Services Required/Pat ient's Best Interest 11/13/2021 11/13/2022 10 10 Specialty Diagnoses / Procedures Referred By Contac t Referred To Contact Sleep Medicine Diagnoses Snoring Jackson Davis MD [address] [place] [address] [facility] Sleep Medicine [address] [place] [address] Referral ID Status Reason Start Date Expiration Date Visits Requested Visits Authorized [id number] Authorized Specialty Services Required/Pat ient's Best Interest 12/23/2021 12/23/2022 1 1 Specialty Diagnoses / Procedures Referred By Contac t Referred To Contact Internal Medicine Diagnoses Colon cancer screening Bhavesh Faust MD [address] [phone] Tee George, [address] [place] [address] Referral ID Status Reason Start Date Expiration Date Visits Requested Visits Authorized [id number] Authorized Specialty Services Required/Pat ient's Best Interest 01/17/2023 01/17/2024 1 1 Scheduling Instructions Please fax to Specialty Diagnoses / Procedures Referred By Contac t Referred To Contact Diagnoses Encounter for screening for malignant neoplasm of breast, unspecified screening modality Procedures Mammography Screening Daniel Bilateral Bhavesh Faust MD [address] [place] [address] [place] [address] Phone: [phone] Referral ID Status Reason Start Date Expiration Date Visits Requested Visits Authorized [id number] Authorized Patient Preference 01/17/2023 01/17/2024 1 1 Specialty Diagnoses / Procedures Referred By Contac t Referred To Contact Diagnoses Breast nodule Procedures US Breast Left Limited Bhavesh Faust MD [address] [place] [address] Referral ID Status Reason Start Date Expiration Date V isits Requested Visits Authorized [id number] Authorized 02/03/2023 02/03/2024 1 1 Specialty Diagnoses / Procedures Referred By Contac t Referred To Contact Diagnoses Breast nodule Procedures Mammography Diagnostic Left Bhavesh Faust MD [address] [place] [address] Referral ID Status Reason Start Date Expiration Date V isits Requested Visits Authorized [id number] Authorized 02/03/2023 02/03/2024 1 1 Specialty Diagnoses / Procedures Referred By Contac t Referred To Contact Diagnoses Overweight (BMI 25.0-29.9) Kvng Gonzalez MD [address] [place] [address] [address] [place] [address] Referral ID Status Reason Start Date Expiration Date V isits Requested Visits Authorized [id number] Pending Review 1 1 Specialty Diagnoses / Procedures Referred By Contac t Referred To Contact Kvng Gonzalez MD [address] [place] [address] Referral ID Status Reason Start Date Expiration Date Visits Re quested Visits Authorized [id number] Denied 1 1 Specialty Diagnoses / Procedures Referred By Contac t Referred To Contact Diagnoses Insulin resistance Kvng Gonzalez MD [address] [place] [address] Referral ID Status Reason Start Date Expiration Date Visits Re quested Visits Authorized [id number] Denied 1 1 Specialty Diagnoses / Procedures Referred By Contac t Referred To Contact Diagnoses Atypical eating disorder Kvng Gonzalez MD [address] [place] [address] Referral ID Status Reason Start Date Expiration Date V isits Requested Visits Authorized [id number] Pending Review 1 1 Referral ID Status Reason Start Date Expiration Date V isits Requested Visits Authorized [id number] Authorized 12/13/2023 06/10/2024 1 1 Specialty Diagnoses / Procedures Referred By Contac t Referred To Contact Radiology Diagnoses Encounter for screening for malignant neoplasm of breast, unspecified screening modality Procedures Mammography Screening Daniel Bilateral Bhavesh Faust MD [facility] [address] [address] Referral ID Status Reason Start Date Expiration Date V isits Requested Visits Authorized [id number] Authorized 02/10/2024 02/09/2025 1 1 Specialty Diagnoses / Procedures Referred By Contac t Referred To Contact Cardiology Diagnoses Preop cardiovascular exam Procedures ECG 12 Lead Bhavesh Faust MD [facility] [address] [address] Referral ID Status Reason Start Date Expiration Date Visits Re quested Visits Authorized [id number] Closed 12/16/2023 12/15/2024 1 1 Discharge Instructions * Discharge Instr - Other Orders* Scarlet Pugh RN - 12/19/2020 1:15 PM EST GENERAL POST-OPERATIVE PATIENT INSTRUCTIONS ANESTHESIA PRECAUTIONS: A responsible adult must stay with you for at least 24 hours after surgery. You may feel light headed,, dizzy, or nauseated during this time. Do not operate a vehicle (car, bike, motorcycle, urban design consultant) machinery or power tools. Do not make any important decisions or drink any alcoholic beverages for 24 hours. Children should remain quiet today. No riding of bicycles, motorcycles, skateboards, playing on swings etc. Drink plenty of fluids today. Eat light, small, frequent meals today. Resume regular diet tomorrow. FOLLOW-UP: Please make an appointment with your physician for follow-up. Call your physician immediately if you have any fevers greater than 101, drainage from your wound that is not clear or looks infected, persistent bleeding, increasing abdominal pain, problems urinating, or persistent nausea/vomiting. DIET: You may eat any foods that you can tolerate. It is a good idea to eat a high fiber diet and take in plenty of fluids to prevent constipation. If you do become constipated you may want to take amild laxative or take ducolax tablets on a daily basis until your bowel habits are regular. Constipation can be very uncomfortable, along with straining, after recent surgery. ACTIVITY: You are encouraged to cough and deep breathe or use your incentive spirometer if you weregiven one, every 15-30 minutes when awake. This will help prevent respiratory complications and lowgrade fevers post-operatively if you had a general anesthetic. You are encouraged to walk and engage in light activity for the next two weeks. MEDICATIONS: Try to take narcotic medications and anti-inflammatory medications, such as ibuprofen,naprosyn, etc., with food. This will minimize stomach upset from the medication. Should you developnausea and vomiting from the pain medication, or develop a rash, please discontinue the medication and contact your physician. You should not drive, make important decisions, or operate machinery when taking narcotic pain medication. Do not take tylenol or tylenol products with narcotic medications. QUESTIONS: Please feel free to call your physician or the hospital freezer machine operator if you have any questions, and they will be glad to assist you. documented in this encounter Additional Source Comments Assessment & Plan Note - Alberto Pedersen MD - 02/20/2018 8:30 AM EDTAssessment & Plan Note - Alberto Pedersen MD - 02/20/2018 8:28 AM EDT Miscellaneous Notes (unrecog nized section and content) Associated Problem(s): Lumbar back pain Will rewrite the script for the Medical or therapeutic mssage therapy up to once a week for 50 weeks as indicated. Associated Problem(s): Overweight (BMI 25.0-29.9) Initial: One tablet (naltrexone 8 mg/bupropion 90 mg) once daily in the morning for 1 week; at week 2, increase to 1 tablet twice daily administered in the morning and evening and continue for 1 week; at week 3, increase to 2 tablets in the morning and 1 tablet in the evening and continue for 1 week; at week 4, increase to 2 tablets twice daily administered in the morning and evening and continue for the remainder of the treatment course. Will increase the dose of the medication and rewrite the script accordingly Associated Problem(s): Hypertension Outstanding decrease in BP as well as some weight loss since last seen. 104/72. Will go ahead and reduce the Losartan to 1/2 of the 50 mg of the 25 mg per day. If the home reading start to go above 130/80 go back to the full 50 mg Tablet.in this encounter Associated Problem(s): Overweight (BMI 25.0-29.9) Start with 1 tablet in am and after 1 week increase to one tablet twice a day. Associated Problem(s): Hypertension Losartan 50 mg once a day. DASH diet. Goal BP < 130/80. Associated Problem(s): Pain of left thumb Injected the left thumb with 20 mg of Kenalog an daoubt 3 ml of Marcaine 0.25%.in this encounter Associated Problem(s): Osteoarthritis of carpometacarpal (CMC) joint of right thumb Injected the right thumb with 0.5 ml of Kenalog or 20 mg with 3 cc of 1% Lidocaine for adequate effect. Associated Problem(s): Arthritis of carpometacarpal (CMC) joint of left thumb Injected the left thumb with 0.5 ml of Kenalog or 20 mg with 3 cc of 1% Lidocaine for adequate effect. 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 in this encounter Associated Problem(s): Obesity, Class I, BMI 30-34.9 Lorcaserin 10 mg twice a day and then re evaluate in 12 weeks Associated Problem(s): Cystitis Need ot increase water intake and will treat the infection with Bactrim. Associated Problem(s): Sciatica YOu hip and buttock pain are related to the nerve of the sciatic and most lieky related to inflammation related to the bladder infection. in this encounter Associated Problem(s): Osteoarthritis of carpometacarpal (CMC) joint of right thumb You have been getting joint injections for over 10 years. I think we need to do xrays of your hands and if it comes back with arthritis I am sending you to a specialist for possible thumb joint replacements. Associated Problem(s): Arthritis of carpometacarpal (CMC) joint of left thumb You have been getting joint injections for over 10 years. I think we need to do xrays of your hands and if it comes back with arthritis I am sending you to a specialist for possible thumb joint replacements. Will order Meloxicam once a day, take at bedtime. Do not take Ibuprofen or other NSAIDS while on this medication. Take it with food. Associated Problem(s): Obesity, Class I, BMI 30-34.9 Eat meat, vegetables, nuts and seeds, some fruit, very little starch and absolutely no sugar. If you can grow it or kill it, then that's what you should be eating..... Chicken, turkey, fish pork, beef, ALL vegetables and fruit. If it is processed or you can not pronounce the ingredients, do not eat it! Shop the outside perimeter of the grocery store. Listen to your body, if you are hungry all the time you may need to increase your intake of healthy veggies and small healthy snacks. Eat whole, healthy foods and you won't need to count calories. Increase your activity level; the more you move your body the healthier you will be and the better you will feel! Diet and Exercise is not a fad, it really works! Associated Problem(s): Hypothyroidism (acquired) Last TSH was 2.40, this is within normal range, will refill. documented in this encounter Associated Problem(s): Anxiety Go back to 20 mg of Celexa daily. I am going to add Buspar 10 mg twice daily to help take the edge off and help with anxiety symptoms. You have a lot on your plate right now, let me know if this medication is not helping or symptoms get worse. Associated Problem(s): Preoperative evaluation to rule out surgical contraindication According to RCRI patient is low risk for surgery. Continue medications as prescribed. documented in this encounter RECEIVED FAX FROM PHARMACY. REQUESTING REFILL ON QUEUED MEDICATION(S). LAST OV: 05/20/2020 NEXT OV:none scheduled documented in this encounter Brief Post Operative Note Patient Name: Reema Ventura : 1970 (50 y.o.) Date of Service: 12/19/2020 CSN: [id number] Procedure(s): Left index finger extensor tendon repair percutaneous pinning Pre-Operative Diagnoses: * Laceration of left index finger with tendon involvement, initial encounter [S61.211A] Post-Operative Diagnoses: * Same as Pre-Op Diagnosis * Laceration of left index finger with tendon involvement, initial encounter [L62.674B] Surgeon(s) and Role: * Ananya Madrigal MD - Primary Anesthesiologist: Alberto Rodriguez MD CLINICAL SERVICES MANAGER: Allan Chandler CRNA Digital Content Coordinator: Lorrie Roberto RN; Lorrie Cuadra RN Senior Salesforce Developer: Abran Barnes, TECHNOLOGIST Scrub Person: Brittany Guzman RN TRAY CASTING MACHINE OPERATOR: Anusha Briscoe RN Operative findings: see op note Intra and immediate post-operative complications: none Type of anesthesia used: Monitor Anesthesia Care Estimated blood loss: 1 mL Estimated urine output: Refer to surgical log Specimen(s): * No specimens in log * Implant(s): Implant Name Type Inv. Item Serial No. Cigarette Making Examiner Lot No. LRB No. Used Action WIRE 1.1 X 130MM SPADE POINT CONCEPT - [id number] WIRE 1.1 X 130MM SPADE POINT CONCEPT [employer] [id number] Left 1 Implanted Drain(s): * No LDAs found * Wound(s): Wound 12/19/20 Surgical Wound Finger(s) Left (Active) Reassessment Unchd 12/19/20 1330 Dressing Status Clean;Dry;Intact 12/19/20 1406 Drainage Amount None 12/19/20 1406 Ananya Madrigal MD 12/19/2020 4:32 PM Discharge instructions reviewed with patient and family/friend, all questions answered, verbalized understanding.Including but not limited to signs and symptoms of infection; fever over 100, redness at the incision site, foul smelling drainage around the incisional site, and increased, unrelenting pain. When call 911 instructions also reviewed and highlighted on instruction sheet. Patient states that they have the means to obtain supplies to care for self at home. Dictation on: 12/19/2020 4:37 PM by: ANANYA MADRIGAL [[id number]] Will notify rd of need for h and p and informed consent documented in this encounter Patient called she has yellow drainage on her incision . Per Dr Nirav olivares DS 1 po BID x 10 days. Warm soapy water soaks x 10 min. BID, then apply by dabbing betadine solution with 2x2 gaze. Cover incison with adaptic dressing and band aid or gauze dressing. No ointments to incision on left index finger. He wants to see patient this Tuesday and next Tuesday. Appointment made for 8:00 am Tuesday. Patient voices understanding. documented in this encounter INFORMATION SOURCE (unrecogn ized section and content) DATE CREATED AUTHOR AUTHOR'S ORGANIZ ATION 12/12/2018 [facility] DATE CREATED AUTHOR AUTHOR'S ORGANIZ ATION 01/11/2019 [facility] DATE CREATED AUTHOR AUTHOR'S ORGANIZ ATION 06/18/2019 [facility] DATE CREATED AUTHOR AUTHOR'S ORGANIZ ATION 01/31/2022 [facility] DATE CREATED AUTHOR AUTHOR'S ORGANIZ ATION 03/11/2022 [facility] DATE CREATED AUTHOR AUTHOR'S ORGANIZ ATION 10/16/2022 [facility] DATE CREATED AUTHOR AUTHOR'S ORGANIZ ATION 04/06/2023 [facility] DATE CREATED AUTHOR AUTHOR'S ORGANIZ ATION 07/29/2023 [facility] DATE CREATED AUTHOR AUTHOR'S ORGANIZ ATION 11/06/2023 [facility] DATE CREATED AUTHOR AUTHOR'S ORGANIZ ATION 12/21/2023 [facility] DATE CREATED AUTHOR AUTHOR'S ORGANIZ ATION 12/23/2023 [facility] Reason for Visit (unrecogniz ed section and content) Reason Comments Hand Pain B/L thumbs > months worsening reports having no strenght to ground layer Reason Comments Pre-op Exam Jun 18 [facility] Reason Comments Sinusitis PT REPORTS DRAINAGE , HEADACHE, PRESSURE X1 WEEK PT REPORTS TRIED MUCINEX BUT DIDN'T HELP Reason Onset Date Comments Medication Refill 11/20/2020 Reason Comments Injury Status Reason Specialty Diagnoses / Procedures Referre d By Contact Referred To Contact Diagnoses Laceration of left index finger with tendon involvement, initial encounter Laceration of left index finger with tendon involvement, initial encounter [S61.211A] Procedures TX REPAIR EXTEN TENDON,DORSUM HAND,EA TX REPAIR EXTEN TENDON,DORSUM FINGR,EA Left index finger extensor tendon repair percutaneous pinning Reason Comments Annual Exam Reason Comments Follow-up Reason Onset Date Comments Medication Refill 01/06/2021 Reason Comments Wound Check Follow-up Reason Comments Injury Pain Reason Comments Patient Education Reassessment Reason Onset Date Comments Medication Refill 05/18/2021 Reason Comments Weight Gain Reason Onset Date Comments PA INITIATED-WEGOVY 09/14/2021 Reason Comments Weight Loss 4 week follow up Reason Onset Date Comments Medication Refill 09/18/2021 Reason Onset Date Comments PA INITIATED-OZEMPIC 09/29/2021 Reason Comments Obesity Over weight: [facility] Bar ker Reason Comments Obesity Weight Loss Reason Comments Weight Gain Specialty Diagnoses / Procedures Referred By Contac t Referred To Contact Nutrition Diagnoses Overweight with body mass index (BMI) of 29 to 29.9 in adult S/P bariatric surgery Ana M Osorio FLANGER [address] [place] [address] Kvng Gonzalez MD [address] [address] Referral ID Status Reason Start Date Expiration Date Visits Re quested Visits Authorized [id number] Closed 09/15/2021 09/15/2022 1 1 Reason Comments Consult New sleep, daytime s leepiness and snoring. Specialty Diagnoses / Procedures Referred By Contac t Referred To Contact Pulmonology Diagnoses Daytime sleepiness Snoring Ana M Osorio FLANGER [address] [address] Jackson Davis MD [facility] [place] [address] Referral ID Status Reason Start Date Expiration Date Visits Re quested Visits Authorized [id number] Closed 11/18/2021 11/18/2022 1 1 Reason Onset Date Comments Medication Refill 01/25/2022 Re: Wegovy 01/25/2022 Reason Onset Date Comments Medication Refill 01/22/2022 Reason Onset Date Comments Medication Refill 02/01/2022 Reason Onset Date Comments Medication Refill 02/11/2022 Specialty Diagnoses / Procedures Referred By Casa pantoja Referred To Contact Infusion Therapy Diagnoses Iron deficiency Iron deficiency anemia, unspecified iron deficiency anemia type Iron malabsorption Procedures TX IRON SUCROSE INJECTION Kvng Gonzalez MD [address] [place] [address] Oncology Infusion [address] [place] [address] Referral ID Status Reason Start Date Expiration Date V isits Requested Visits Authorized [id number] Authorized 02/23/2022 05/26/2022 5 5 Reason Comments Anemia Venofer push Specialty Diagnoses / Procedures Referred By Casa pantoja Referred To Contact Infusion Therapy Diagnoses Iron deficiency Iron deficiency anemia, unspecified iron deficiency anemia type Iron malabsorption Procedures TX IRON SUCROSE INJECTION Kvng Gonzalez MD [address] [place] [address] Oncology Infusion [address] [place] [address] Referral ID Status Reason Start Date Expiration Date Visits Re quested Visits Authorized [id number] Closed 02/23/2022 05/26/2022 5 5 Reason Comments New Patient Reema is here today to discuss a panniculectomy. She had gastric bypass in 2006. She denies any rashes under her abdominal fold area but can break out a little bit here and there. Reason Onset Date Comments Medication Refill 06/23/2022 Reason Comments Follow-up Abdominoplasty on . Reason Comments Pre-op Exam Abdominoplasty on . Pre and post op instructions reviewed and signed. Reason Comments Post Op Visit Abdominoplasty on . She states she is still a little sore especially when getting up and down but she has been up walking and it helps. Drain intact. Reason Comments Post Op Visit Abdominoplasty on . She denies any pain or discomfort. Drains intact. Binder worn at all times. Reason Comments Post Op Visit Abdominoplasty on . She denies any pain or discomfort. Binder worn at all times. Reason Comments Post Op Visit Abdominoplasty on . She complains of tightness but denies pain. Reason Comments Post Op Visit Abdominoplasty on . Reason Onset Date Comments Medication Refill 11/10/2022 Reason Onset Date Comments Medication Refill 11/15/2022 Reason Onset Date Comments Medication Refill 11/16/2022 Reason Onset Date Comments Medication Refill 12/14/2022 Reason Comments Follow-up C [place] pt. Reason Comments Follow-up C [place] pt. Reason Onset Date Comments Medication Refill 03/08/2023 Reason Comments Obesity Weight Loss Reason Onset Date Comments Medication Refill 06/19/2023 Reason Comments Other Encounter for screen ing for malignant neoplasm of colon Reason Onset Date Comments Medication Refill 10/07/2023 Reason Comments Weight Loss Obesity Reason Comments Follow-up Pre-op-just need EKG for procedure. Ananya Madrigal MD - 12/19/2020 10:06 AM Ananya Corrales MD - 12/18/2020 5:21 PM EST H&P Notes (unrecognized sect ion and content) INTERVAL HISTORY AND PHYSICAL Patient Name: Reema Ventura Admit Date: [id number] MR #: [id number] : 1970 The H&P has been reviewed and the patient has been examined. I concur with the findings of the H&P. There are no significant changes. It is appropriate to proceed with the planned procedure. Ananya Madrigal MD 12/19/2020 10:06 AM ON Reema comes in today for evaluation of her right index finger. Unfortunately, she was using a knife when she sliced the dorsum of her right index finger caused an extensor laceration just proximal to the DIP joint with complete loss of extensor function. ALLERGIES Cats claws, grass, pollen, mold and codeine phosphate. CURRENT MEDICATIONS Includes Synthroid and Celexa. SURGERIES She has had 2 ankle surgeries 2018 and 2019. She has had gastric bypass in 2006. She has had tubal ligation. ILLNESSES Include hypothyroidism, depression, seasonal asthma and allergies. REVIEW OF SYSTEMS Right hand laceration. SOCIAL HISTORY She does drink on a rare occasion. Does not smoke. FAMILY HISTORY Positive for cancer. Negative for heart attack and stroke. IMAGING X-ray examination reveals no significant fracture or osseous abnormality. PHYSICAL EXAM General: She is awake, alert, and oriented x3. Chest, abdomen, cardiac: Exam benign. Extremities: Right upper extremity has an axial laceration just proximal to the DIP joint of the right 5th finger. She at this point in time has good capillary refill. Grossly neurologically intact in the right hand. Remaining digits are without trauma. IMPRESSION Extensor tendon laceration, right index finger. PLAN We will proceed forward with extensor tendon repair and percutaneous pinning of the right index finger. All risks, complications were discussed. I discussed all the treatment options with the patient, the patient part of the entire decision- making process. I discussed with the patient while we practice appropriate precautions consistent with prevailing medical standards, any contact with any person in any setting at this time presents a risk of transmission and contraction of COVID- 19. The patient was also informed that COVID-19 testing within 72 hours of the procedure will be required and the patient wished to proceed. Mental health status was assessed and narcotic review was performed. Patient's last listed medication was Percocet on 06/18/2019. documented in this encounter Source Comments (unrecognize d section and content) In the event this informatio n is protected by the Federal Confidentiality of Alcohol and Drug Abuse Patient Records regulations: The Federal rules restrict any use of the information to criminally investigate or prosecute any alcohol or drug abuse patient.[facility] Teams (unrecognized sec tion and content) Shrimp Trawler Captain Relationship Specialty Start Date End Date SpringAna M FLANGER [address] [address] PCP - General Nurse Practitioner 02/06/19springAna M FLANGER [address] [address] PCP - LVIE Attributed Provider - Addy Commercial 05/24/21 10/23/50 Shrimp Trawler Captain Relationship Specialty Start Date End Date SpringAna M, FLANGER [address] [address] PCP - General Nurse Practitioner 02/06/19 Ana M Osorio FLANGER [address] [address] PCP - LIVE Attributed Provider - Addy Commercial 05/24/21 10/22/21 Shrimp Trawler Captain Relationship Specialty Start Date End Date SpringAna M, FLANGER [address] [address] PCP - General Nurse Practitioner 02/06/19springAna M FLANGER [address] [address] PCP - LIVE Attributed Provider - Addy Commercial 05/24/21 10/22/21 Shrimp Trawler Captain Relationship Specialty Start Date End Date SpringAna M FLANGER [address] [address] PCP - General Nurse Practitioner 02/06/19 Ana M Osorio FLANGER [address] [address] PCP - LIVE Attributed Provider - Addy Commercial 05/24/21 10/22/21 Shrimp Trawler Captain Relationship Specialty Start Date End Date Ana M Osorio CNP [facility] [address] [address] PCP - General Nurse Practitioner 02/06/19 Ana M Osorio CNP [address] [place] [address] PCP - LIVE Attributed Provider - Addy Commercial 05/24/21 10/22/21 Shrimp Trawler Captain Relationship Specialty Start Date End Date Ana M Osorio CNP [address] [place] [address] PCP - General Nurse Practitioner 02/06/19 Ana M Osorio CNP [address] [place] [address] PCP - LIVE Attributed Provider - Addy Commercial 05/24/21 10/22/21 Shrimp Trawler Captain Relationship Specialty Start Date End Date Ana M Osorio CNP [address] [place] [address] PCP - General Nurse Practitioner 02/06/19 Ana M Osorio CNP [address] [place] [address] PCP - LIVE Attributed Provider - Addy Commercial 05/24/21 10/22/21 Shrimp Trawler Captain Relationship Specialty Start Date End Date Ana M Osorio FLANGER [facility] [address] [address] PCP - General Nurse Practitioner 02/06/19 Shrimp Trawler Captain Relationship Specialty Start Date End Date Ana M Osorio CNP [address] [place] [address] PCP - General Nurse Practitioner 02/06/19 Shrimp Trawler Captain Relationship Specialty Start Date End Date Ana M Osorio DELIA [address] [place], [place] [id number] PCP - General Nurse Practitioner 02/06/19 Shrimp Trawler Captain Relationship Specialty Start Date End Date Ana M Osorio CNP [address] [place] [address] PCP - General Nurse Practitioner 02/06/19 Shrimp Trawler Captain Relationship Specialty Start Date End Date Ana M Osorio CNP [address] [place] [address] PCP - General Nurse Practitioner 02/06/19 Ana M Osorio CNP [address] [place], [place] [id number] PCP - LIVE Attributed Provider - Addy Commercial 08/24/21 10/23/50 Shrimp Trawler Captain Relationship Specialty Start Date End Date Ana M Osorio CNP [address] [place] [address] PCP - General Nurse Practitioner 02/06/19 Ana M Osorio CNP [address] [place], [place] [phone] PCP - LIVE Attributed Provider - Addy Commercial 08/24/21 10/23/50 Shrimp Trawler Captain Relationship Specialty Start Date End Date Ana M Osorio CNP [address] [place], [place] [phone] PCP - General Nurse Practitioner 02/06/19 Ana M Osorio CNP [address] [place], [place] [phone] PCP - LIVE Attributed Provider - Addy Commercial 08/24/21 10/23/50 Shrimp Trawler Captain Relationship Specialty Start Date End Date Ana M Osorio CNP [address] [place], [place] [phone] PCP - General Nurse Practitioner 02/06/19 Ana M Osorio CNP [address] [place] [address] PCP - LIVE Attributed Provider - Addy Commercial 08/24/21 10/23/50 Shrimp Trawler Captain Relationship Specialty Start Date End Date Ana M Osorio CNP [address] [place], [place] [phone] PCP - General Nurse Practitioner 02/06/19 Ana M Osorio, FLANGER [address] [place], [place] [phone] PCP - LIVE Attributed Provider - Addy Commercial 08/24/21 10/23/50 Shrimp Trawler Captain Relationship Specialty Start Date End Date Ana M Osorio CNP [address] [place], [place] [phone] PCP - General Nurse Practitioner 02/06/19 Ana M Osorio FLANGER [address] [place], [place] [phone] PCP - LIVE Attributed Provider - Addy Commercial 08/24/21 10/23/50 Shrimp Trawler Captain Relationship Specialty Start Date End Date Ana M Osorio CNP [address] [place], [place] [phone] PCP - General Nurse Practitioner 02/06/19 Ana M Osorio FLANGER [address] [place] [address] PCP - LIVE Attributed Provider - Addy Commercial 08/24/21 10/23/50 Shrimp Trawler Captain Relationship Specialty Start Date End Date Ana M Osorio FLANGER [address] [place] [address] PCP - General Nurse Practitioner 02/06/19 Ana M Osorio FLANGER [address] [address] PCP - LIVE Attributed Provider - Addy Commercial 08/24/21 10/23/50 Shrimp Trawler Captain Relationship Specialty Start Date End Date Ana M Osorio FLANGER [address] [address] PCP - General Nurse Practitioner 02/06/19springAna M, FLANGER [address] [address] PCP - LIVE Attributed Provider - Addy Commercial 08/24/21 10/23/50 Shrimp Trawler Captain Relationship Specialty Start Date End Date Ana M Osorio FLANGER [facility] [address] [address] PCP - General Nurse Practitioner 02/06/19 Ana M Osorio, FLANGER [address] [address] PCP - LIVE Attributed Provider - Addy Commercial 08/24/21 10/23/50 Shrimp Trawler Captain Relationship Specialty Start Date End Date Ana M Osorio FLANGER [facility] [address] [address] PCP - General Nurse Practitioner 02/06/19 Ana M Osorio, FLANGER [address] [address] PCP - LIVE Attributed Provider - Addy Commercial 08/24/21 10/23/50 Shrimp Trawler Captain Relationship Specialty Start Date End Date Ana M Osorio, FLANGER [address] [address] PCP - General Nurse Practitioner 02/06/19 Kvng Gonzalez MD [address] [place] [address] [address] [place] [address] PCP - LIVE Attributed Provider - Addy Commercial 08/24/21 10/23/50 Shrimp Trawler Captain Relationship Specialty Start Date End Date SpringAna M, FLANGER [address] [address] PCP - General Nurse Practitioner 02/06/19 Kvng Gonzalez MD [address] [address] PCP - LIVE Attributed Provider - Addy Commercial 08/24/21 10/23/50 Shrimp Trawler Captain Relationship Specialty Start Date End Date SpringAna M, FLANGER [address] [address] PCP - General Nurse Practitioner 02/06/19 Kvng Gonzalez MD [address] [address] PCP - LIVE Attributed Provider - Addy Commercial 08/24/21 10/23/50 Shrimp Trawler Captain Relationship Specialty Start Date End Date SpringAna M, FLANGER [address] [address] PCP - General Nurse Practitioner 02/06/19 Kvng Gonzalez MD [address] [address] PCP - LIVE Attributed Provider - Addy Commercial 08/24/21 10/23/50 Shrimp Trawler Captain Relationship Specialty Start Date End Date SpringAna M, FLANGER [address] [address] PCP - General Nurse Practitioner 02/06/19 Kvng Gonzalez MD [address] [address] PCP - LIVE Attributed Provider - Addy Commercial 08/24/21 10/23/50 Shrimp Trawler Captain Relationship Specialty Start Date End Date Ana M Osorio FLANGER [address] [address] PCP - General Nurse Practitioner 02/06/19 Kvng Gonzalez MD [address] [address] PCP - LIVE Attributed Provider - Addy Commercial 08/24/21 10/23/50 Shrimp Trawler Captain Relationship Specialty Start Date End Date Kvng Gonzalez MD [address] [address] PCP - LIVE Attributed Provider - Addy Commercial 08/24/21 10/23/50 Shrimp Trawler Captain Relationship Specialty Start Date End Date Kvng Gonzalez MD [address] [address] PCP - LIVE Attributed Provider - Addy Commercial 08/24/21 10/23/50 Shrimp Trawler Captain Relationship Specialty Start Date End Date Kvng Gonzalez MD [address] [address] PCP - LIVE Attributed Provider - Addy Commercial 08/24/21 10/23/50 Shrimp Trawler Captain Relationship Specialty Start Date End Date Ana M Osorio CNP PCP - General Nurse Practitioner - Family 07/27/22 Shrimp Trawler Captain Relationship Specialty Start Date End Date Kvng Gonzalez MD [address] [address] PCP - LIVE Attributed Provider - Addy Commercial 08/24/21 10/23/50 System, Provider Not In PCP - General 07/20/22 Shrimp Trawler Captain Relationship Specialty Start Date End Date Ana M Osorio FLANGER PCP - General Nurse Practitioner - Family 07/27/22 Shrimp Trawler Captain Relationship Specialty Start Date End Date Spring, DELIA Viramontes PCP - General Nurse Practitioner - Family 07/27/22 Shrimp Trawler Captain Relationship Specialty Start Date End Date Spring, DELIA Viramontes PCP - General Nurse Practitioner - Family 07/27/22 Shrimp Trawler Captain Relationship Specialty Start Date End Date Kvng Gonzalez MD 801 [facility] [address] [place] [address] PCP - LIVE Attributed Provider - Addy Commercial 08/24/21 10/23/50 No, Physician [facility] PCP - General 09/06/22 Shrimp Trawler Captain Relationship Specialty Start Date End Date Kvng Gonzalez MD 801 [facility] [address] [place] [address] PCP - LIVE Attributed Provider - Addy Commercial 08/24/21 10/23/50 No, Physician [facility] PCP - General 09/06/22 Shrimp Trawler Captain Relationship Specialty Start Date End Date Kvng Gonzalez MD [address] [address] PCP - LIVE Attributed Provider - Addy Commercial 08/24/21 10/23/50 No, Physician [facility] PCP - General 09/06/22 Shrimp Trawler Captain Relationship Specialty Start Date End Date Kvng Gonzalez MD [address] [address] PCP - LIVE Attributed Provider - Addy Commercial 08/24/21 10/23/50 No, Physician [facility] PCP - General 09/06/22 Shrimp Trawler Captain Relationship Specialty Start Date End Date Kvng Gonzalez MD 801 [facility] [address] [place] [address] PCP - LIVE Attributed Provider - Addy Commercial 08/24/21 10/23/50 No, Physician [facility] PCP - General 09/06/22 Shrimp Trawler Captain Relationship Specialty Start Date End Date Kvng Gonzalez MD [address] [address] PCP - LIVE Attributed Provider - Addy Commercial 08/24/21 10/23/50 No, Physician [facility] PCP - General 09/06/22 Shrimp Trawler Captain Relationship Specialty Start Date End Date Kvng Gonzalez MD [address] [address] PCP - LIVE Attributed Provider - Addy Commercial 08/24/21 10/23/50 No, Physician [facility] PCP - General 09/06/22 Shrimp Trawler Captain Relationship Specialty Start Date End Date Kvng Gonzalez MD [address] [address] PCP - LIVE Attributed Provider - Addy Commercial 08/24/21 10/23/50 No, Physician [facility] PCP - General 09/06/22 Shrimp Trawler Captain Relationship Specialty Start Date End Date Kvng Gonzalez MD [address] [address] PCP - LIVE Attributed Provider - Addy Commercial 08/24/21 10/23/50 Bhavesh Faust MD [address] [place] [address] PCP - General Family Medicine 01/17/23 Shrimp Trawler Captain Relationship Specialty Start Date End Date Kvng Gonzalez MD [address] [address] PCP - LIVE Attributed Provider - Addy Commercial 08/24/21 10/23/50 Bhavesh Faust MD [address] [place], [place] [id number] PCP - General Family Medicine 01/17/23 Shrimp Trawler Captain Relationship Specialty Start Date End Date Kvng Gonzalez MD [address] [address] PCP - LIVE Attributed Provider - Addy Commercial 08/24/21 10/23/50 Bhavesh Faust MD [address] [place] [address] PCP - General Family Medicine 01/17/23 Shrimp Trawler Captain Relationship Specialty Start Date End Date Kvng Gonzalez MD [address] [address] PCP - LIVE Attributed Provider - Addy Commercial 08/24/21 10/23/50 Bhavesh Faust MD [address] [place], [place] [id number] PCP - General Family Medicine 01/17/23 Shrimp Trawler Captain Relationship Specialty Start Date End Date Kvng Gonzalez MD [address] [address] PCP - LIVE Attributed Provider - Addy Commercial 08/24/21 10/23/50 Bhavesh Faust MD [facility] [address] [address] PCP - General Family Medicine 01/17/23 Shrimp Trawler Captain Relationship Specialty Start Date End Date Kvng Gonzalez MD [address] [address] PCP - LIVE Attributed Provider - Addy Commercial 08/24/21 10/23/50 Bhavesh Faust MD [facility] [address] [address] PCP - General Family Medicine 01/17/23 Shrimp Trawler Captain Relationship Specialty Start Date End Date Kvng Gonzalez MD [address] [address] PCP - LIVE Attributed Provider - Addy Commercial 08/24/21 10/23/50 Bhavesh Faust MD [facility] [place] [phone] PCP - General Family Medicine 01/17/23 Shrimp Trawler Captain Relationship Specialty Start Date End Date Bhavesh Faust MD [address] [place], [place] [phone] PCP - General 01/24/23 Shrimp Trawler Captain Relationship Specialty Start Date End Date Kvng Gonzalez MD [address] [address] PCP - LIVE Attributed Provider - Addy Commercial 08/24/21 10/23/50 Bhavesh Faust MD [facility] [place] [phone] PCP - General Family Medicine 01/17/23 Shrimp Trawler Captain Relationship Specialty Start Date End Date Kvng Gonzalez MD [address] [address] PCP - LIVE Attributed Provider - Addy Commercial 08/24/21 10/23/50 Bhavesh Faust MD 1720 [place] [phone] PCP - General Family Medicine 01/17/23 Shrimp Trawler Captain Relationship Specialty Start Date End Date Kvng Gonzalez MD 801 [place] [address] PCP - LIVE Attributed Provider - Addy Commercial 08/24/21 10/23/50 Bhavesh Faust MD [facility] [place] [address] PCP - General Family Medicine 01/17/23 Shrimp Trawler Captain Relationship Specialty Start Date End Date Kvng Gonzalez MD [address] [address] PCP - LIVE Attributed Provider - Addy Commercial 08/24/21 10/23/50 Bhavesh Faust MD [facility] [place] [address] PCP - General Family Medicine 01/17/23 Shrimp Trawler Captain Relationship Specialty Start Date End Date Kvng Gonzalez MD [address] [address] PCP - LIVE Attributed Provider - Addy Commercial 08/24/21 10/23/50 Bhavesh Faust MD [facility] [place] [phone] PCP - General Family Medicine 01/17/23 Shrimp Trawler Captain Relationship Specialty Start Date End Date Kvng Gonzalez MD 801 [facility] [address] [place] [address] PCP - LIVE [facility] Provider - Addy Commercial 08/24/21 10/23/50 Bhavesh Faust MD [address] [address] PCP - General Family Medicine 01/17/23 FOR RECORDS PERTAINING TO PATIENTS WHO ARE OR HAVE BEEN ENROLLED IN A CHEMICAL DEPENDENCY/SUBSTANCEABUSE PROGRAM, SOME INFORMATION MAY BE OMITTED. This clinical summary was aggregated from multiple sources. Caution should be exercised in using it in the provision of clinical care. This summary normalizes information from multiple sources, and as a consequence, information in this document may materially change the coding, format and clinical context of patient data. In addition, data may be omitted in some cases. CLINICAL DECISIONS SHOULD BE BASED ON THE PRIMARY CLINICAL RECORDS. [facility] [employer] provides no warranty or guarantee of the accuracy or completeness of information in this document.
[2024-01-06 06:20] VITALS: BP 119/79; PULSE 65; RESP 16; TEMP 36.3; O2SAT 95; BMI 27.6
[2024-01-06] MEDS: Lactated Ringers 1,000 ML 15 ML IV (06:27)
--- NOTE | 2024-01-06 07:20 | PCM.HP.BLA ---
History and Physical Date of Admission: 01/06/24 Pt examined and there are no changes from the H&P/Medical Clearance of 12/18/23. The pt with lower eyelid blepharochalasis---for lower blepharoplasty. Informed consent obtained. Assessment & Plan Assessment/Plan (1) Encounter for surgery for cosmetic deformity: PLAN: Plan For lower blepharoplasty
[2024-01-06] MEDS: Cefazolin 2 GM in 0.9% Normal Saline (100mL Bag) 100 ML IV (07:37)
[2024-01-06] MEDS: Epinephrine (1 mg/ml) 1 MG/ML VIAL ×2 (08:13→09:38)
[2024-01-06] MEDS: Lidocaine 1% /Epi 1:100 (20ml) 20 ML Vial (08:13)
[2024-01-06] MEDS: Povidone Iodine 30 ML Opthalmic Sol 1 DRP (08:13)
[2024-01-06] MEDS: Erythromycin Base 1 OPTH.TUBE 1 APPLIC (08:13)
[2024-01-06] MEDS: Tetracaine 0.5% Ophthalmic Bottle 1 DRP (08:13)
--- NOTE | 2024-01-06 11:03 | DCINST_ITS ---
Discharge Instructions Dressing / Incision Additional Dressing/Incision Instructions:: Follow instructions given in the office. Continuous cold compresses today with head elevation. Follow Up Care Please Follow Up With: Sera Pina MD When: 1 week Test Results: Test results from this visit will be discussed in further detail at your follow- up appointment, if applicable. Discharge Plan Admission Attending Provider: Sera Pina Primary Care Provider: BHAVESH FAUST Discharge Orders/Prescriptions Prescriptions: No Action levothyroxine 125 mcg capsule 125 mcg PO DAILY trazodone 50 mg tablet 50 mg PO QHS PRN (Reason: sleep) Senna Plus 8.6-50 mg capsule 1 tab-cap PO QHS Contrave 8-90 mg tablet extended release 1 tab PO BID Zyrtec 10 mg capsule 10 mg PO DAILY PRN (Reason: ALLERGIES) fluticasone propionate [Flonase Allergy Relief] 50 mcg/actuation spray,suspension 1 spray intranasal DAILY Rx Instructions: administer into each nostril cephalexin 500 mg capsule 500 mg PO BID Qty: 14 0RF erythromycin 5 mg/gram (0.5 %) ointment 1 applic ophthalmic (eye) DAILY Qty: 3.5 0RF Rx Instructions: Apply to incision area 1 x a day and in eye at nighttime metformin 500 mg tablet extended release 24 hr 250 mg PO BID Patient Comments: TAKE 1 TABLET BY MOUTH DAILY WITH BREAKFAST . Referrals / Follow Up: BHAVESH FAUST MD [Primary Care Provider] - Disposition Disposition (needs filled in before D/C Order can be placed): Home, Self Care
--- NOTE | 2024-01-06 11:05 | OP.PCM_ITS ---
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 The patient is marked in the preop holding area prior to surgery. The patient is brought to the operating room and placed under general anesthesia in the supine position. Care is taken to pad all pressure points, apply a warming blanket, and sequential compression stockings. The face is prepped and draped in the usual sterile fashion. Tetracaine drops are placed followed which corneal suarez were placed bilaterally lubricated with ophthalmic antibiotic ointment. We initially began with injecting 1 present Xylocaine with epinephrine along the proposed incision. Time is left to allow this to take effect before making an incision approximately 2 to 3 mm below the lash line. The skin is then elevated as a separate flap from the orbicularis for approximately 5 mm. Following this, an incision is made in the direction of the fibers of the orbicularis in a submuscular plane is then followed down to the orbital rim. Fat protuberances are noted beneath the orbital septum. As we proceed, meticulous hemostasis is assured with bipolar cautery. A small opening in the orbital septum is made and the fat allowed to protrude from the opening. Any fat protruding above the orbital septum is then clamped at the base with a mosquito hemostat with care to ensure that it is from surrounding structures including the septum. The fatty tissue was then excised and a bipolar was used to cauterize the stump. The stump is then grasped and hemostasis assured before it is released. The same procedure was performed for the medial mid and lateral fat pockets. The skin is redraped and the contour checked. The wound is irrigated with saline and meticulous hemostasis is performed. The skin is then redraped after carefully sweeping it upwards to allow it to conform to the contour. The skin to be excised is then marked. This only amounts to a 1 to 2 mm in thickness. The orbicularis is then tacked to the lateral canthus to assist in supporting the lower eyelid. Again hemostasis is assured before the wound is closed. Laterally, the incision is closed with a running fast-absorbing gut. The remainder of the incision is closed with a running subcuticular Prolene suture. The identical procedure was performed on the opposite side. The Prolene is then fixed in place with Mastisol and Steri-Strips at the zygomatic area and nasal bridge. Cool compresses are placed on the eyes throughout the procedure. She tolerated the procedure well was taken to the recovery area in an awake and stable condition. Needle and sponge counts are correct. Complications None Admit VTE Documentation VTE Present on Admission: Yes VTE Mechan Device Prophylaxis: SCD's
[2024-01-06 11:06] VITALS: BP 136/80; PULSE 85; RESP 16; TEMP 36.1; O2SAT 95
[2024-01-06 11:10] VITALS: BP 131/84; PULSE 86; RESP 16; O2SAT 96
[2024-01-06 11:15] VITALS: BP 133/78; PULSE 89; RESP 16; O2SAT 96
[2024-01-06 11:24] VITALS: BP 119/79; BP 136/80; PULSE 90; RESP 16; TEMP 36.3; O2SAT 96
[2024-01-06 12:20] VITALS: BP 119/79; BP 132/78; PULSE 89; RESP 17; TEMP 36.6; O2SAT 96
== END 2024-01-06 12:36 | disposition home or self-care (01) ==
LOC: SDC 05:46 → AC 06:05
PROVIDERS: PCP Family Medicine; Referring Provider Family Medicine; Visit Provider Plastic Surgery
PROC: (CPT 15820; principal; 2024-01-06 07:15)
DX: H02.89 Other specified disorders of eyelid (principal); F32.A Depression, unspecified; E07.9 Disorder of thyroid, unspecified; J45.909 Unspecified asthma, uncomplicated; Z79.84 Long term (current) use of oral hypoglycemic drugs; Z79.899 Other long term (current) drug therapy
CPT/HCPCS: 15820; 00103; J7120; J2405